=== PATIENT | male | born 1955 | race Caucasian/White ===

== ENCOUNTER → 2016-11-02 | Outpatient (CLI) | payer MEDICARE ==
[~2016-11-02] MED LIST: AUGM875T27 PO; ISOVUE-370 76% 100ML VIAL (Q9967) As Ordered ONE; PRED20TA PO; PREV30CA11 PO; ROCE1INJ4 IM; TYLE325T5 PO
[2016-11-02 14:18] LABS: ALBUMIN 4.1 GM/DL (3.2-5.2); ALBUMIN/GLOBULIN RATIO 1.46 (1.00-1.93); BILIRUBIN,DIRECT 0.1 MG/DL (0.0-0.2); BILIRUBIN,TOTAL 0.4 MG/DL (0.2-1.0); TOTAL PROTEIN 6.9 GM/DL (6.4-8.2)
--- NOTE | 2016-11-02 14:44 | REP ---
Clinical: Vocal cord paralysis with history of esophageal cancer. Technique: Axial contrast enhanced images from the thoracic inlet to the upper abdomen using 100 ml Isovue 370 intravenous contrast material with coronal and sagittal re-formations. Comparison: None. Findings: The the patient is status post partial esophagectomy with gastric pull-through procedure and gastroesophageal anastomosis in the upper mediastinum. The residual esophagus and elevated stomach as well as the area of anastomosis appear relatively normal. Few paraesophageal and mediastinal lymph nodes measure up to approximately 12-14 mm and are essentially nonspecific in appearance. No mass lesion. The heart/pericardium, thoracic aorta and pulmonary vasculature appear normal. The bilateral lung pelaez are well aerated with minimal presumed to scarring and interstitial changes at the lung bases as well as mild perihilar lower lobe bronchiectasis. A calcified nodule in the right upper lobe measures 9 mm. No consolidation, soft tissue nodule or mass lesion appreciated. No pleural effusion/reaction. No pneumothorax. Osseous structures are intact. Limited upper abdomen demonstrates normal bilateral adrenal glands and left upper pole renal cyst measuring 2.7 cm. Impression: 1. Evidence for prior partial esophagectomy with gastric pull-through procedure for esophageal cancer. No obvious recurrent mass lesion or significant adenopathy is appreciated. With the exception of normal appearing postsurgical changes, the mediastinum appears normal. 2. Lungs demonstrate calcified granuloma in the right upper lobe as well as minimal chronic basilar changes and mild bronchiectasis. No acute pleuroparenchymal process identified. 3. 2.7 cm left renal cyst. Signed by Thom Montejo MD 11/02/2016 02:35 P
--- NOTE | 2016-11-02 15:07 | REP ---
CT NECK WITH CONTRAST: HISTORY: Vocal cord paralysis. Contrast: Isovue 370, 75 mL There is medial deviation of the left true vocal cord. There is widening of the left laryngeal ventricle. The right true vocal cord is normal in appearance. The naso-, sukhdev- and hypopharynx and subglottic trachea are normal in appearance. The salivary and thyroid glands are normal. Small lymph nodes, less than 1 cm in size are present in the internal jugular chains, posterior triangles, and submandibular areas. Degenerative change is present in the cervical spine. The lung apices are clear. There are postoperative changes in the left orbit, ethmoid and frontal sinuses. Mucosal thickening is present in the left ethmoid and sphenoid sinuses. Decreased density is present in the frontal lobes consistent with encephalomalacia. IMPRESSION: There is medial deviation of the left true vocal cord with associated dilatation of the left laryngeal ventricle consistent with vocal cord paralysis. Signed by Suresh Mcneal MD 11/02/2016 03:13 P
== END ==
LOC: M LAB 13:32 → M RAD 13:32
PROVIDERS: ATTEND Otolaryngology
DX: J38.01 Paralysis of vocal cords and larynx, unilateral (principal); E78.5 Hyperlipidemia, unspecified; J98.4 Other disorders of lung; N28.1 Cyst of kidney, acquired; Z98.890 Other specified postprocedural states
CPT/HCPCS: 36415; 70491; 71260; 80061; 80076; Q9967

== ENCOUNTER → 2016-12-08 | Outpatient (CLI) | payer MEDICARE ==
[~2016-12-08] MED LIST changes: +AMIT25TA PO; -ISOVUE-370 76% 100ML VIAL (Q9967) As Ordered ONE; +PRAV40TA2 PO
[2016-12-08 11:20] LABS: BASO % 0.5 % (0.0-1.0); EOS # 0.2 K/mm3 (0.0-0.50); EOS % 3.8 % (0.0-3.0); LARGE UNSTAINED CELL # 0.1 K/mm3 (0.0-0.4); LARGE UNSTAINED CELL % 1.6 % (0.0-4.0); LYMPH # 1.5 K/mm3 (1.5-4.5); MEAN CORPUSCULAR HEMOGLOBIN 32.5 pg (27.0-33.0); MEAN CORPUSCULAR HGB CONC 33.9 g/dl (32.0-36.5); MEAN CORPUSCULAR VOLUME 95.9 fl (80.0-96.0); MONO # 0.3 K/mm3 (0.0-0.8); MONO % 4.3 % (0.0-5.0); NEUTROPHILS # 3.9 K/mm3 (1.8-7.7); NEUTROPHILS % 64.9 % (36.0-66.0); PLATELET COUNT, AUTOMATED 223 k/mm3 (150-450); RED CELL DISTRIBUTION WIDTH 13.8 % (11.5-14.5)
[2016-12-08 11:51] LABS: ALBUMIN 3.8 GM/DL (3.2-5.2); ALBUMIN/GLOBULIN RATIO 1.36 (1.00-1.93); ALKALINE PHOSPHATASE 76 U/L (45-117); ALT/SGPT 27 U/L (12-78); ANION GAP 6 MEQ/L (8-16); AST/SGOT 14 U/L (15-37); BILIRUBIN,TOTAL 0.4 MG/DL (0.2-1.0); BLOOD UREA NITROGEN 21 MG/DL (7-18); CALCIUM LEVEL 8.8 MG/DL (8.8-10.2); CARBON DIOXIDE LEVEL 30 MEQ/L (21-32); CHLORIDE LEVEL 109 MEQ/L (98-107); CREATININE FOR GFR 0.97 MG/DL (0.70-1.30); GLOMERULAR FILTRATION RATE > 60.0 (>49); GLUCOSE, FASTING 106 MG/DL (80-110); POTASSIUM SERUM 4.4 MEQ/L (3.5-5.1); SODIUM LEVEL 145 MEQ/L (136-145); TOTAL PROTEIN 6.6 GM/DL (6.4-8.2)
[2016-12-08 11:53] LABS: FOLATE 16.9 NG/ML (>5.4); VITAMIN B12 LEVEL 177 PG/ML (247-911)
== END ==
LOC: M LAB 10:45
PROVIDERS: ATTEND Psychiatry & Neurology Neurology
DX: R20.0 Anesthesia of skin (principal); E55.9 Vitamin D deficiency, unspecified; E61.0 Copper deficiency; E53.8 Deficiency of other specified B group vitamins; Z79.899 Other long term (current) drug therapy

== ENCOUNTER → 2016-12-15 | Outpatient (CLI) | payer MEDICARE ==
[~2016-12-15] MED LIST changes: +ISOVUE-370 76% 100ML VIAL (Q9967) As Ordered ONE
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
== END ==
LOC: M RAD 14:00
PROVIDERS: ATTEND Psychiatry & Neurology Neurology
DX: R20.0 Anesthesia of skin (principal); G44.221 Chronic tension-type headache, intractable; G43.009 Migraine without aura, not intractable, without status migrainosus; G31.9 Degenerative disease of nervous system, unspecified; Z87.828 Personal history of other (healed) physical injury and trauma
CPT/HCPCS: 70470; Q9967

== ENCOUNTER → 2016-12-22 | Outpatient (CLI) | payer MEDICARE ==
[~2016-12-22] VITALS: Ht 182.9 cm; Wt 123.4 kg
[~2016-12-22] MED LIST changes: -ISOVUE-370 76% 100ML VIAL (Q9967) As Ordered ONE; +LIDOCAINE 2% INJ 100 MG/5 ML SDV (FOR ANES.) As Ordered ONE; +NS 1,000 ML IV ONE; +PROPOFOL 500 MG/50 ML VIAL As Ordered ONE
--- NOTE | 2016-12-22 10:26 | ROOR ---
Patient Name: Dharmesh Tovar Procedure Date: 12/22/2016 9:56 AM Date of : 1955 Age: 61 Room: [facility] Gender: Male Note Status: Finalized Procedure: Upper GI endoscopy Indications: Surveillance for malignancy due to personal history of esophageal cancer, Esophageal Ca 2011. S/p gastric pull up. Providers: Jason KAY MD Referring MD: NELSON PURI MD Requesting Provider: Medicines: Monitored Anesthesia Care Complications: No immediate complications. Procedure: Pre-Anesthesia Assessment: - The heart rate, respiratory rate, oxygen saturations, blood pressure, adequacy of pulmonary ventilation, and response to care were monitored throughout the procedure. The Endoscope was introduced through the mouth, and advanced to the second part of duodenum. The upper GI endoscopy was accomplished without difficulty. The patient tolerated the procedure well. Findings: A few mucosal nodules were found at the esophageal anastomosis, 17 cm from the incisors. Biopsies were taken with a cold forceps for histology. An esophago-gastric anastomosis was found in the mid/upper third of the esophagus. This was characterized by congestion, erythema, inflammation and mild stenosis. This was biopsied with a cold forceps for histology. A medium amount of food (residue) was found in the entire examined stomach. Removal of food was accomplished. The entire examined stomach was normal. The examined duodenum was normal. Impression: - An esophago-gastric anastomosis was found, characterized by nodularity, congestion, erythema, inflammation and mild stenosis. Biopsied. - A medium amount of food (residue) in the stomach. Removal was successful. (Gastric retention/gastroparesis likely related to surgical denervation of stomach.) - Normal stomach. - Normal examined duodenum. Recommendation: - Use Prilosec (omeprazole) 40 mg twice a day indefinitely. - Telephone endoscopist for pathology results in 2 weeks. - Repeat EGD in 1 year (or sooner dep on todays biopsies) - Gastroparesis diet: - Eat smaller, more frequent meals throughout the day. - Low fat diet. - Liquid/soft foods are tolerated better than solid foods. - Low fiber/well cooked vegetables are tolerated better than high fiber/fibrous foods/raw vegetables. - Avoid medications that inhibit gastric/intestinal motility such as narcotic medications. Jason Kay MD Jason KAY MD 12/22/2016 10:25:35 AM This report has been signed electronically. Number of Addenda: 0 Note Initiated On: 12/22/2016 9:56 AM Estimated Blood Loss: Estimated blood loss: none.
[2016-12-22 10:50] VITALS: BP 131/77
== END | disposition home or self-care (01) ==
LOC: M OPP 08:43
PROVIDERS: ATTEND Internal Medicine Gastroenterology
DX: Z08 Encounter for follow-up examination after completed treatment for malignant neoplasm (principal); Z85.01 Personal history of malignant neoplasm of esophagus; Z98.890 Other specified postprocedural states; K22.8 Other specified diseases of esophagus; K31.89 Other diseases of stomach and duodenum; T18.2XXA Foreign body in stomach, initial encounter; Y93.89 Activity, other specified; Y92.89 Other specified places as the place of occurrence of the external cause; I48.91 Unspecified atrial fibrillation; I20.9 Angina pectoris, unspecified; I10 Essential (primary) hypertension; E78.00 Pure hypercholesterolemia, unspecified; M19.90 Unspecified osteoarthritis, unspecified site; F33.9 Major depressive disorder, recurrent, unspecified; F41.9 Anxiety disorder, unspecified; G47.9 Sleep disorder, unspecified; H93.19 Tinnitus, unspecified ear; Z87.828 Personal history of other (healed) physical injury and trauma; Z79.899 Other long term (current) drug therapy

== ENCOUNTER 2017-02-16 16:23 | Emergency (ER) | payer MEDICARE ==
[~2017-02-16] VITALS: Ht 182.9 cm; Wt 125.0 kg
[~2017-02-16 16:23] MED LIST changes: -AUGM875T27 PO; +AUGM875T28 PO; -LIDOCAINE 2% INJ 100 MG/5 ML SDV (FOR ANES.) As Ordered ONE; -NS 1,000 ML IV ONE; +PREV1CAP PO; -PREV30CA11 PO; -PROPOFOL 500 MG/50 ML VIAL As Ordered ONE
[2017-02-16] MEDS ORDERED: PREV1CAP PO (16:34)
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
[2017-02-16] MEDS ORDERED: TETRACAINE 0.5% OPHTH SOLN 4ML OD ONE (18:45)
[2017-02-16 19:10] VITALS: BP 124/75
== END 2017-02-16 19:17 | disposition home or self-care (01) ==
LOC: M ED 16:23
DX: H53.8 Other visual disturbances (principal)

== ENCOUNTER 2017-03-09 23:53 | Emergency (ER) | payer MEDICARE ==
[~2017-03-09] VITALS: Ht 182.9 cm; Wt 124.5 kg
[2017-03-09 23:54] VITALS: BP 120/74
[2017-03-10] MEDS ORDERED: ADACEL/BOOSTRIX VACCINE (DIPHTH/PERTUSS/ACELL/TETANUS)0.5ML SYR (90715) IM ONE (00:15)
[2017-03-10] MEDS ORDERED: CEPHALEXIN 500 MG CAP PO ONE (00:15)
[2017-03-10] MEDS ORDERED: KEFL500C17 PO (00:55)
== END 2017-03-10 01:06 | disposition home or self-care (01) ==
LOC: M ED 23:53
DX: S61.315A Laceration without foreign body of left ring finger with damage to nail, initial encounter (principal); F10.129 Alcohol abuse with intoxication, unspecified; Z72.0 Tobacco use; W45.8XXA Other foreign body or object entering through skin, initial encounter; Y92.099 Unspecified place in other non-institutional residence as the place of occurrence of the external cause; Y93.89 Activity, other specified; Y99.9 Unspecified external cause status

== ENCOUNTER 2017-08-06 02:06 | Emergency (ER) | payer MEDICARE ==
[2017-08-06 03:43] LABS: BASO % 0.3 % (0.0-1.0); EOS # 0.4 10^3/uL (0.0-0.50); EOS % 2.8 % (0.0-3.0); HEMOGLOBIN 16.2 g/dl (14.0-18.0); IMMATURE GRANULOCYTE # 0.1 10^3/uL (0-0); IMMATURE GRANULOCYTE % 0.4 % (0-0); LYMPH # 1.5 10^3/uL (1.5-4.5); LYMPH % 11.4 % (24.0-44.0); MEAN CORPUSCULAR HEMOGLOBIN 32.1 pg (27.0-33.0); MEAN CORPUSCULAR HGB CONC 33.8 g/dl (32.0-36.5); MONO # 0.7 10^3/uL (0.0-0.8); MONO % 5.8 % (0.0-5.0); NEUTROPHILS # 10.2 10^3/uL (1.8-7.7); NEUTROPHILS % 79.3 % (36.0-66.0); PLATELET COUNT, AUTOMATED 233 10^3/uL (150-450); RED BLOOD COUNT 5.05 10^6/uL (4.30-6.10); RED CELL DISTRIBUTION WIDTH 13.8 % (11.5-14.5); WHITE BLOOD COUNT 12.8 10^3/uL (4.0-10.0)
[2017-08-06 03:54] LABS: KETONE, URINE AUTO RFX TRACE mg/dL (NEGATIVE); LEUKOCYTE ESTERASE UR AUTO RFX NEGATIVE (NEGATIVE); MUCUS, URINE RFX SMALL (NEGATIVE); NITRITE, URINE AUTO RFX NEGATIVE (NEGATIVE); RBC, URINE AUTO RFX 1 /HPF (0-3); SPECIFIC GRAVITY UR AUTO RFX 1.024 (1.002-1.035); SQUAM EPITHELIAL CELL UR AURFX 0 /HPF (0-6); WBC, URINE AUTO RFX 0 /HPF (0-3)
[2017-08-06 04:15] LABS: PARTIAL THROMBOPLASTIN TIME 30.5 SECONDS (26.8-37.9); PROTHROMBIN TIME 13.2 SECONDS (12.4-14.5)
[2017-08-06 05:18] LABS: ALBUMIN 3.8 GM/DL (3.2-5.2); ALBUMIN/GLOBULIN RATIO 1.23 (1.00-1.93); ALKALINE PHOSPHATASE 73 U/L (45-117); ALT/SGPT 26 U/L (12-78); ANION GAP 10 MEQ/L (8-16); AST/SGOT 15 U/L (7-37); BILIRUBIN,DIRECT 0.1 MG/DL (0.0-0.2); BILIRUBIN,TOTAL 0.5 MG/DL (0.2-1.0); BLOOD UREA NITROGEN 16 MG/DL (7-18); CALCIUM LEVEL 8.4 MG/DL (8.8-10.2); CARBON DIOXIDE LEVEL 24 MEQ/L (21-32); CHLORIDE LEVEL 111 MEQ/L (98-107); CK-MB VALUE MASS 3.1 NG/ML (0.0-3.6); CPK CREATINE PHOSPHOKINASE 83 U/L (39-308); CREATININE FOR GFR 1.07 MG/DL (0.70-1.30); GLOMERULAR FILTRATION RATE > 60.0 (>49); GLUCOSE, FASTING 109 MG/DL (80-110); LIPASE 85 U/L (73-393); MB/CK RELATIVE INDEX 3.73 (< OR =4); POTASSIUM SERUM 4.1 MEQ/L (3.5-5.1); SODIUM LEVEL 145 MEQ/L (136-145); TOTAL PROTEIN 6.9 GM/DL (6.4-8.2); TROPONIN I < 0.02 NG/ML (< 0.10)
[2017-08-06] MEDS ORDERED: ISOVUE-370 76% 100ML VIAL (Q9967) As Ordered (05:50)
== END 2017-08-06 07:40 | disposition left against medical advice (07) ==
LOC: M ED 02:06
DX: K56.690 Other partial intestinal obstruction (principal); Z79.899 Other long term (current) drug therapy; F17.210 Nicotine dependence, cigarettes, uncomplicated
CPT/HCPCS: Q9967

== ENCOUNTER 2017-08-08 18:46 | Emergency (ER) | payer MEDICARE ==
[2017-08-08] MEDS: NS 1,000 ML IV (22:00)
[2017-08-08 22:18] LABS: BASO % 0.5 % (0.0-1.0); EOS # 0.3 10^3/uL (0.0-0.50); EOS % 3.8 % (0.0-3.0); HEMATOCRIT 48.1 % (42.0-52.0); HEMOGLOBIN 16.6 g/dl (14.0-18.0); IMMATURE GRANULOCYTE % 0.4 % (0-0); LYMPH # 1.9 10^3/uL (1.5-4.5); LYMPH % 22.8 % (24.0-44.0); MEAN CORPUSCULAR HEMOGLOBIN 32.4 pg (27.0-33.0); MEAN CORPUSCULAR HGB CONC 34.5 g/dl (32.0-36.5); MEAN CORPUSCULAR VOLUME 93.9 fl (80.0-96.0); MONO # 0.5 10^3/uL (0.0-0.8); MONO % 6.3 % (0.0-5.0); NEUTROPHILS # 5.6 10^3/uL (1.8-7.7); NEUTROPHILS % 66.2 % (36.0-66.0); PLATELET COUNT, AUTOMATED 213 10^3/uL (150-450); RED BLOOD COUNT 5.12 10^6/uL (4.30-6.10); RED CELL DISTRIBUTION WIDTH 13.4 % (11.5-14.5); WHITE BLOOD COUNT 8.5 10^3/uL (4.0-10.0)
[2017-08-08 22:30] LABS: ALBUMIN 4.3 GM/DL (3.2-5.2); ALBUMIN/GLOBULIN RATIO 1.39 (1.00-1.93); ALKALINE PHOSPHATASE 79 U/L (45-117); ALT/SGPT 27 U/L (12-78); ANION GAP 5 MEQ/L (8-16); AST/SGOT 18 U/L (7-37); BILIRUBIN,TOTAL 0.5 MG/DL (0.2-1.0); BLOOD UREA NITROGEN 21 MG/DL (7-18); CALCIUM LEVEL 9.1 MG/DL (8.8-10.2); CARBON DIOXIDE LEVEL 29 MEQ/L (21-32); CHLORIDE LEVEL 108 MEQ/L (98-107); CREATININE FOR GFR 1.02 MG/DL (0.70-1.30); GLOMERULAR FILTRATION RATE > 60.0 (>49); GLUCOSE, FASTING 97 MG/DL (80-110); POTASSIUM SERUM 4.3 MEQ/L (3.5-5.1); SODIUM LEVEL 142 MEQ/L (136-145); TOTAL PROTEIN 7.4 GM/DL (6.4-8.2)
[2017-08-08] MEDS ORDERED: ISOVUE-370 76% 100ML VIAL (Q9967) As Ordered (22:32)
== END 2017-08-09 00:06 | disposition home or self-care (01) ==
LOC: M ED 08-09 00:06
DX: K56.600 Partial intestinal obstruction, unspecified as to cause (principal); F41.9 Anxiety disorder, unspecified; F33.9 Major depressive disorder, recurrent, unspecified; F17.210 Nicotine dependence, cigarettes, uncomplicated
CPT/HCPCS: Q9967

== ENCOUNTER 2018-12-05 19:20 | Emergency (ER) | payer MEDICARE ==
[~2018-12-05] VITALS: Ht 185.4 cm; Wt 111.3 kg
[~2018-12-05 19:20] MED LIST changes: +KEFL500C17 PO; -ROCE1INJ4 IM; +ROCE1INJ6 IM
[2018-12-05 21:08] VITALS: BP 130/80
== END 2018-12-05 21:12 | disposition home or self-care (01) ==
LOC: M ED 19:20
DX: K40.90 Unilateral inguinal hernia, without obstruction or gangrene, not specified as recurrent (principal); K21.9 Gastro-esophageal reflux disease without esophagitis; K44.9 Diaphragmatic hernia without obstruction or gangrene; K27.9 Peptic ulcer, site unspecified, unspecified as acute or chronic, without hemorrhage or perforation; N17.9 Acute kidney failure, unspecified; Z85.01 Personal history of malignant neoplasm of esophagus; Z72.0 Tobacco use

== ENCOUNTER → 2019-01-08 | Outpatient (CLI) | payer MEDICARE ==
--- NOTE | 2019-01-08 10:51 | REP ---
RIGHT INGUINAL ULTRASOUND: Real-time sonographic evaluation of the right inguinal region was performed to evaluate for possible hernia. There is a right inguinal hernia present. At rest the defect diameter is 19 mm, with Valsalva, 23 mm. There is peritoneal fat and bowel protruding into the hernia. The hernia is reducible. Electronically Signed by Josiah Hilton MD 01/08/2019 12:36 P
== END ==
LOC: M RAD 09:31
PROVIDERS: ATTEND Family Medicine
DX: K40.90 Unilateral inguinal hernia, without obstruction or gangrene, not specified as recurrent (principal)

== ENCOUNTER 2020-04-29 14:56 | Inpatient (IN) | payer MEDICARE ==
[~2020-04-29] VITALS: Ht 188 cm; Wt 100.0 kg
[2020-04-29 15:41] LABS: VENOUS BASE EXCESS -2.9 (-2.0-2.0); VENOUS HCO3 24.2 MEQ/L (23.0-27.0); VENOUS PARTIAL PRESSURE CO2 50.4 mmHg (38.0-50.0); VENOUS PARTIAL PRESSURE O2 30.8 mmHg (30.0-50.0); VENOUS STANDARD HCO3 20.8 MEQ/L; VENOUS TOTAL CO2 25.8 MEQ/L (24.0-28.0)
[2020-04-29 15:46] LABS: BASO % 0.5 % (0.0-1.0); EOS # 0.1 10^3/uL (0.0-0.5); EOS % 1.7 % (0.0-3.0); HEMATOCRIT 50.9 % (42.0-52.0); HEMOGLOBIN 16.4 g/dl (13.5-17.5); LYMPH # 1.6 10^3/uL (1.5-5.0); LYMPH % 21.2 % (24.0-44.0); MEAN CORPUSCULAR HGB CONC 32.2 g/dl (32.0-36.5); MEAN CORPUSCULAR VOLUME 99.2 fl (80.0-96.0); MONO # 0.4 10^3/uL (0.0-0.8); MONO % 5.6 % (0.0-5.0); NEUTROPHILS # 5.3 10^3/uL (1.5-8.5); NEUTROPHILS % 70.9 % (36.0-66.0); PLATELET COUNT, AUTOMATED 154 10^3/uL (150-450); RED BLOOD COUNT 5.13 10^6/uL (4.30-6.10); WHITE BLOOD COUNT 7.5 10^3/uL (4.0-10.0)
[2020-04-29 16:18] LABS: ALBUMIN 4.2 GM/DL (3.2-5.2); ALT/SGPT 29 U/L (12-78); BILIRUBIN,DIRECT 1.4 MG/DL (0.0-0.2); BILIRUBIN,TOTAL 3.1 MG/DL (0.2-1.0); BLOOD UREA NITROGEN 19 MG/DL (7-18); CALCIUM LEVEL 9.7 MG/DL (8.8-10.2); CARBON DIOXIDE LEVEL 25 MEQ/L (21-32); CHLORIDE LEVEL 110 MEQ/L (98-107); CK-MB VALUE MASS 2.1 NG/ML (<3.6); CPK CREATINE PHOSPHOKINASE 74 U/L (39-308); CREATININE FOR GFR 1.42 MG/DL (0.70-1.30); GLOMERULAR FILTRATION RATE 53.3 (>49); GLUCOSE, FASTING 123 MG/DL (70-100); MB/CK RELATIVE INDEX 2.84 (< OR =4); NT-PRO BNP 4539 PG/ML (<125); POTASSIUM SERUM 4.1 MEQ/L (3.5-5.1); SODIUM LEVEL 143 MEQ/L (136-145); TOTAL PROTEIN 7.2 GM/DL (6.4-8.2); TROPONIN I < 0.02 NG/ML (< 0.10)
--- NOTE | 2020-04-29 16:42 | REPVR ---
PROCEDURE INFORMATION: Exam: XR Chest, 1 View Exam date and time: 04/29/2020 3:49 PM Age: 65 years old Clinical indication: Apnea and cough; Additional info: Dyspnea/cough TECHNIQUE: Imaging protocol: XR of the chest Views: 1 view. COMPARISON: CT Chest with contrast 11/02/2016 2:07 PM FINDINGS: Lungs: Unremarkable. No consolidation. Pleural space: Moderate size right and small left pleural effusions with underlying atelectasis and infiltrates at bilateral lung bases. Heart/Mediastinum: Unremarkable. No cardiomegaly. Bones/joints: Degenerative changes of the spine. IMPRESSION: Moderate size right and small left pleural effusion with underlying atelectasis/infiltrates. Electronically signed by: Simón Quach On 04/29/2020 16:42:14 PM
--- NOTE | 2020-04-29 17:40 | REPVR ---
PROCEDURE INFORMATION: Exam: CT Chest Without Contrast Exam date and time: 04/29/2020 5:03 PM Age: 65 years old Clinical indication: Shortness of breath; Additional info: Effusion TECHNIQUE: Imaging protocol: Computed tomography of the chest without contrast. 3D rendering (Not supervised by radiologist): MIP and/or 3D reconstructed images were created by the technologist. Radiation optimization: All CT scans at this facility use at least one of these dose optimization techniques: automated exposure control; mA and/or kV adjustment per patient size (includes targeted exams where dose is matched to clinical indication); or iterative reconstruction. COMPARISON: CT Chest with contrast 11/02/2016 2:07 PM FINDINGS: Limitations: Evaluation is somewhat limited by lack of IV contrast. Lungs: A calcified granuloma is again present in the right upper lobe. There is considerable new compression of the right more than left lower lobes, with mild atelectasis in the lingula and right middle lobe inferiorly. The central airways appear patent. Pleural space: There are new, large right and moderate left pleural effusions. No pneumothorax. Heart: Unremarkable. No cardiomegaly. No pericardial effusion. Mediastinal space: There are again operative changes of partial esophagectomy and gastric pull-through. Aorta: The thoracic aorta is nonaneurysmal. Atherosclerotic vascular calcifications are again present. Lymph nodes: No gross pathologic lymphadenopathy. Kidneys and ureters: The partially included left kidney again contains a cyst measuring up to 3.7 cm. Bones/joints: Degenerative changes again involve the spine. The partially visualized left humerus demonstrates questionable irregular lucency of its cortex, although this may relate to motion. Soft tissues: Unremarkable. IMPRESSION: 1. Large right and moderate left pleural effusions. 2. Operative changes of partial esophagectomy and gastric pull-through, as on 11/02/16. 3. Question irregular lucency of the cortex of the partially visualized left humerus, although this could relate to motion. Recommend dedicated radiographs to exclude pathology such as metastasis. Electronically signed by: Devan Simmons On 04/29/2020 17:40:45 PM
[2020-04-29] MEDS ORDERED: DIGOXIN INJ 0.5 MG/2 ML AMP (J1160) IV STA (18:06)
[2020-04-29] MEDS ORDERED: FUROSEMIDE 40MG/4ML VIAL (J1940) IV ONE (18:15)
[2020-04-29] MEDS ORDERED: DIGOXIN INJ 0.5 MG/2 ML AMP (J1160) IV ONE (19:15)
[2020-04-29] MEDS ORDERED: ACET1TAB55 PO (19:22)
--- NOTE | 2020-04-29 20:09 | IPNPDOC ---
Text Note Date of Service The patient was seen on 04/29/20. VS,Kevinbone, I+O VS, Fishbone, I+O Laboratory Tests 04/29/20 15:30 Vital Signs Date Time Temp Pulse Resp B/P (MAP) Pulse Ox O2 Delivery O2 Flow Rate FiO2 04/29/20 19:37 147 04/29/20 18:00 108/76 (87) 96 Room Air 04/29/20 17:45 19 04/29/20 14:57 97.2 USMAN WILSON MD Apr 29, 2020 20:09
[2020-04-29] MEDS ORDERED: MOM 30ML SUSPENSION UDC PO PRN (20:15)
[2020-04-29] MEDS ORDERED: ACETAMINOPHEN TAB 650MG DOSE (2X325MG) PO PRN (20:15)
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
[2020-04-29 21:16] VITALS: BP 140/97
[2020-04-29 21:44] LABS: APPEARANCE, URINE CLEAR (CLEAR); BACTERIA, URINE AUTO NEGATIVE (NEGATIVE); BILIRUBIN, URINE AUTO NEGATIVE (NEGATIVE); BLOOD, URINE BLOOD NEGATIVE (NEGATIVE); COLOR, URINE STRAW (YELLOW); GLUCOSE, URINE (UA) AUTO NEGATIVE (NEGATIVE); KETONE, URINE AUTO NEGATIVE (NEGATIVE); LEUKOCYTE ESTERASE, URINE AUTO NEGATIVE (NEGATIVE); NITRITE, URINE AUTO NEGATIVE (NEGATIVE); PROTEIN, URINE AUTO NEGATIVE (NEGATIVE); RBC, URINE AUTO 2 /HPF (0-3); SPECIFIC GRAVITY URINE AUTO 1.003 (1.002-1.035); SQUAMOUS EPITHELIAL CELL UR AU 0 /HPF (0-6); UROBILINOGEN, URINE AUTO 0.2 mg/dL (0.0-2.0); WBC, URINE AUTO 0 /HPF (0-3)
[2020-04-29 21:52] LABS: INR 1.21; PROTHROMBIN TIME 15.6 SECONDS (12.5-14.3)
[2020-04-29 21:53] LABS: PARTIAL THROMBOPLASTIN TIME 31.7 SECONDS (24.2-38.5)
[2020-04-29 22:00] VITALS: BP 128/91
[2020-04-29 22:02] LABS: CREATININE,RANDOM URINE < 13.0 MG/DL; SODIUM,RANDOM URINE 118 MEQ/L; UREA NITROGEN RANDOM URINE 62 MG/DL
[2020-04-29 22:14] LABS: TROPONIN I < 0.02 NG/ML (< 0.10)
[2020-04-29] MEDS ORDERED: LORazepam 2 MG TAB PO PRN (22:30)
[2020-04-29] MEDS: THIAMINE 100 MG TAB PO SCH (22:49)
[2020-04-29] MEDS ORDERED: AMIODARONE HCL 150 MG in IV 1 EA IV ONE (23:00)
[2020-04-29] MEDS ORDERED: AMIODARONE HCL 360 MG in IV 1 EA IV SCH (23:30)
[2020-04-30] VITALS (13 sets, daily range): BP systolic 89–148; BP diastolic 58–86
[2020-04-30] MEDS: FUROSEMIDE 40MG/4ML VIAL (J1940) IV SCH ×5 (03:57→16:00)
[2020-04-30 04:52] LABS: VENOUS BASE EXCESS 0.3 (-2.0-2.0); VENOUS HCO3 25.2 MEQ/L (23.0-27.0); VENOUS O2 SATURATION 82.4 % (60.0-80.0); VENOUS PARTIAL PRESSURE CO2 41.5 mmHg (38.0-50.0); VENOUS PARTIAL PRESSURE O2 47.9 mmHg (30.0-50.0); VENOUS PH 7.401 UNITS (7.330-7.430); VENOUS STANDARD HCO3 24.4 MEQ/L; VENOUS TOTAL CO2 26.5 MEQ/L (24.0-28.0)
[2020-04-30 05:00] LABS: HEMATOCRIT 44.8 % (42.0-52.0); HEMOGLOBIN 14.7 g/dl (13.5-17.5); MEAN CORPUSCULAR HEMOGLOBIN 31.9 pg (27.0-33.0); MEAN CORPUSCULAR HGB CONC 32.8 g/dl (32.0-36.5); MEAN CORPUSCULAR VOLUME 97.2 fl (80.0-96.0); PLATELET COUNT, AUTOMATED 124 10^3/uL (150-450); RED BLOOD COUNT 4.61 10^6/uL (4.30-6.10)
[2020-04-30 05:21] LABS: ALBUMIN 3.6 GM/DL (3.2-5.2); BILIRUBIN,TOTAL 2.5 MG/DL (0.2-1.0); CALCIUM LEVEL 9.3 MG/DL (8.8-10.2); CREATININE FOR GFR 1.35 MG/DL (0.70-1.30); GLOMERULAR FILTRATION RATE 56.5 (>49); MAGNESIUM LEVEL 1.9 MG/DL (1.8-2.4); POTASSIUM SERUM 3.9 MEQ/L (3.5-5.1)
[2020-04-30 05:28] LABS: HEMOGLOBIN A1c 5.9 %
[2020-04-30] MEDS ORDERED: atenoloL 25 MG TAB As Ordered ONE (08:06)
[2020-04-30] MEDS ORDERED: DIGOXIN INJ 0.5 MG/2 ML AMP (J1160) As Ordered ONE (08:06)
[2020-04-30] MEDS ORDERED: atenoloL 25 MG TAB PO ONE (08:15)
[2020-04-30] MEDS: THIAMINE 100 MG TAB PO SCH ×2 (08:15→19:27)
[2020-04-30] MEDS: FOLIC ACID 1 MG TAB PO SCH (08:15)
[2020-04-30] MEDS ORDERED: DIGOXIN INJ 0.5 MG/2 ML AMP (J1160) IV ONE (08:15)
[2020-04-30] MEDS: MULTIVITAMINS/MINERALS THERAP 1 TAB PO SCH (08:15)
[2020-04-30] MEDS: ENOXAPARIN 40MG/0.4ML SYRINGE (J1650 PER 10MG) SC SCH (08:17)
[2020-04-30 10:24] LABS: HEPATITIS A ANTIBODY IGM NEGATIVE (NEGATIVE); HEPATITIS B CORE ANTIBODY IGM NEGATIVE (NEGATIVE); HEPATITIS B SURFACE ANTIGEN NEGATIVE (NEGATIVE); HEPATITIS C VIRUS ABY INDEX 0.1 INDEX (<0.8)
--- NOTE | 2020-04-30 10:43 | REPVR ---
PROCEDURE INFORMATION: Exam: XR Left Humerus Exam date and time: 04/30/2020 10:16 AM Age: 65 years old Clinical indication: Pain; Upper arm; Left; Additional info: Possible mets to left humerus, history of cancer TECHNIQUE: Imaging protocol: XR Left humerus Views: 2 or more views. COMPARISON: CT Chest without contrast 04/29/2020 4:59:29 PM FINDINGS: Bones/joints: Bone mineralization is normal. No osteolytic or osteosclerotic lesions are identified. No destructive bony change. Mild AC joint arthrosis. Old left rib deformities. Soft tissues: Soft tissues are unremarkable. Intravenous catheter in the region of the antecubital fossa. IMPRESSION: No plain film evidence of osseous metastatic disease. Electronically signed by: Thom Ceja On 04/30/2020 10:42:56 AM
--- NOTE | 2020-04-30 11:08 | REPVR ---
PROCEDURE INFORMATION: Exam: US Retroperitoneal; Complete; Kidneys and Bladder Exam date and time: 04/30/2020 10:38 AM Age: 65 years old Clinical indication: Condition or disease; Kidney or ureter condition; Chronic kidney disease or failure; Not specified; Additional info: Ryan TECHNIQUE: Imaging protocol: Real-time ultrasound of the retroperitoneum with image documentation. Complete exam focused on the kidneys and bladder. COMPARISON: Abdomen, limited US 11/29/2014 4:01 PM FINDINGS: Pleural space: Bilateral pleural effusions. Right kidney: Right kidney measures 10.2 cm in length. Simple 13 mm right renal cortical cyst. No hydronephrosis. Left kidney: Left kidney measures 9.0 cm in length. Simple 35 mm left renal cortical cyst. No hydronephrosis. Mild diffuse left renal cortical thinning. Bladder: Unremarkable. Prostate: Enlarged prostate gland. IMPRESSION: 1. No acute renal abnormality. 2. Bilateral pleural effusions. COMMENTS: Consistent with the [employer]'s Incidental Findings Committee white paper (J Am Alyce Radiol 2018): Any incidental renal lesion less than 1 cm or classified as too small to characterize, or any incidental cystic renal lesion characterized as simple-appearing, is likely benign. No follow-up imaging is recommended for these lesions per consensus recommendations based on imaging criteria. Electronically signed by: Pearl Cosme On 04/30/2020 11:08:01 AM
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
--- NOTE | 2020-04-30 15:42 | ECHO ---
DATE OF PROCEDURE: 04/30/2020 Age: 65 Gender: Male Height: 74 inches Weight: 227 pounds Body surface area: 2.29 m2 PATIENT LOCATION: Inpatient intensive care unit (ICU), Room 3204. REFERRING PHYSICIAN: She Peguero MD. INDICATION: Dyspnea. Atrial fibrillation. MEASUREMENTS: 2D Measurements: RV 4.5 cm LV 4.6 cm Septum 1.0 cm Posterior wall 1.0 cm Aortic Root 3.5 cm LA 4.2 cm LVEF 35-40% Doppler Measurements: AV 0.99 m/s LVOT 0.7 m/s LVOT diameter 2.2 cm MV 115 Early mitral deceleration time 172 m/s E prime medial 9.3, E prime lateral 9.3 Average E/E prime ratio 12.4/PCWP 17.2 mmHg PV 0.48 m/s Pulmonary artery acceleration time 90 m/s RVSP 45 mmHg IVC 2.2 cm COMMENTS: Underlying atrial fibrillation with somewhat controlled ventricular response. Somewhat technically challenging study in light of the patients body habitus, but diagnostically useful information was still obtained. M-mode and two-dimensional echocardiography was performed with pulsed, continuous wave, color flow, and tissue Doppler studies. Normal left ventricular size and wall thickness with septal wall motion abnormality believed to be due to right ventricular pressure overload. The left ventricular reed appeared to be hypokinetic. Moderately severe impairment of global resting systolic function. Mildly dilated left atrium with current estimated mean left atrial pressure upper limits of normal to slightly increased. Mildly dilated right ventricular with normal right ventricular free wall motion, but at least moderate pulmonary hypertension. Moderately dilated right atrium and mildly dilated inferior vena cava (IVC) with reduced respiratory collapse in keeping with elevated central venous pressure. Normal aortic dimensions. Mild aortic valvular sclerosis without stenosis, but premature cusp closure in keeping with reduced forward stroke volume. Very mild aortic insufficiency. Mild degenerative changes of the mitral valvular apparatus without inflow tract obstruction, but moderate insufficiency. Normal appearing tricuspid valve with moderately severe tricuspid insufficiency. No apparent intracardiac mass or pericardial effusion. MTDD
--- NOTE | 2020-04-30 20:50 | ECGEPIP ---
[facility] - ED Test Date: 2020-04-29 Pat Name: CROW MURRAY Department: Room: - Gender: Male Instructional Manager: renetta : 1955 Requested By: ROGERIO Jung Order Number: [id number] Reading MD: Lety Hernandez Measurements Intervals [place] Rate: 153 P: WI: 0 QRS: 7 QRSD: 90 T: 0 QT: 242 QTc: 387 Interpretive Statements ATRIAL FIBRILLATION WITH RAPID VENTRICULAR RESPONSE NONSPECIFIC ST & T-WAVE ABNORMALITY ABNORMAL RHYTHM ECG NO PRIOR Electronically Signed on 04-30-2020 20:49:43 EDT by Lety Hernandez
[2020-04-30] MEDS ORDERED: atenoloL 25 MG TAB PO SCH (21:00)
[2020-05-01] VITALS (8 sets, daily range): BP systolic 92–141; BP diastolic 58–86
[2020-05-01] MEDS: FUROSEMIDE 40MG/4ML VIAL (J1940) IV SCH ×3 (00:31→16:00)
[2020-05-01] MEDS: ENOXAPARIN 40MG/0.4ML SYRINGE (J1650 PER 10MG) SC SCH (08:04)
[2020-05-01] MEDS: FOLIC ACID 1 MG TAB PO SCH (08:04)
[2020-05-01] MEDS: THIAMINE 100 MG TAB PO SCH ×2 (08:05→20:21)
[2020-05-01] MEDS: MULTIVITAMINS/MINERALS THERAP 1 TAB PO SCH (08:05)
[2020-05-01] MEDS: CARVedilol 6.25 MG TAB PO SCH ×2 (08:05→20:07)
[2020-05-01] MEDS: DIGOXIN 0.25 MG TAB PO SCH (08:05)
[2020-05-01 10:02] LABS: CALCIUM LEVEL 9.4 MG/DL (8.8-10.2); CREATININE FOR GFR 1.5 MG/DL (0.70-1.30); MAGNESIUM LEVEL 1.8 MG/DL (1.8-2.4); POTASSIUM SERUM 3.6 MEQ/L (3.5-5.1)
[2020-05-01] MEDS ORDERED: POTASSIUM CHLORIDE 10 MEQ SR TABLET PO ONE (10:15)
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
[2020-05-01] MEDS: MAGNESIUM OXIDE 400 MG TAB (MAG-OX) PO SCH (11:48)
[2020-05-02] VITALS (14 sets, daily range): BP systolic 74–115; BP diastolic 50–77
[2020-05-02] MEDS ORDERED: NS 500 ML IV ONE ×3 (08:30→16:30)
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
[2020-05-02] MEDS: FOLIC ACID 1 MG TAB PO SCH (08:48)
[2020-05-02] MEDS: MAGNESIUM OXIDE 400 MG TAB (MAG-OX) PO SCH (08:48)
[2020-05-02] MEDS: MULTIVITAMINS/MINERALS THERAP 1 TAB PO SCH (08:49)
[2020-05-02] MEDS: DIGOXIN 0.25 MG TAB PO SCH (08:49)
[2020-05-02] MEDS: THIAMINE 100 MG TAB PO SCH (08:49)
[2020-05-02] MEDS: POTASSIUM CHLORIDE 10 MEQ SR TABLET PO SCH (08:49)
[2020-05-02] MEDS: ENOXAPARIN 40MG/0.4ML SYRINGE (J1650 PER 10MG) SC SCH (08:50)
[2020-05-02] MEDS: FUROSEMIDE 40MG/4ML VIAL (J1940) IV SCH (08:52)
[2020-05-02] MEDS: CARVedilol 6.25 MG TAB PO SCH (08:52)
[2020-05-02] MEDS ORDERED: CARVedilol 3.125 MG TAB PO SCH (09:00)
[2020-05-02 09:27] LABS: BLOOD UREA NITROGEN 19 MG/DL (7-18); CALCIUM LEVEL 8.9 MG/DL (8.8-10.2); CARBON DIOXIDE LEVEL 32 MEQ/L (21-32); CHLORIDE LEVEL 104 MEQ/L (98-107); CREATININE FOR GFR 1.19 MG/DL (0.70-1.30); GLOMERULAR FILTRATION RATE > 60.0 (>49); GLUCOSE, FASTING 122 MG/DL (70-100); MAGNESIUM LEVEL 1.9 MG/DL (1.8-2.4); POTASSIUM SERUM 3.8 MEQ/L (3.5-5.1); SODIUM LEVEL 141 MEQ/L (136-145)
[2020-05-02] MEDS ORDERED: bisoproloL fumarate 5 MG TAB PO ONE (17:45)
[2020-05-02] MEDS ORDERED: DIGOXIN INJ 0.5 MG/2 ML AMP (J1160) IV ONE (17:45)
[2020-05-02] MEDS: AMIODARONE 200 MG TAB (PACERONE) PO SCH ×2 (17:59→22:56)
[2020-05-03] VITALS (11 sets, daily range): BP systolic 89–123; BP diastolic 54–71
[2020-05-03 05:20] LABS: BASO % 0.3 % (0.0-1.0); EOS # 0.1 10^3/uL (0.0-0.5); EOS % 2.3 % (0.0-3.0); HEMATOCRIT 45.4 % (42.0-52.0); HEMOGLOBIN 14.8 g/dl (13.5-17.5); LYMPH # 1.3 10^3/uL (1.5-5.0); LYMPH % 20.9 % (24.0-44.0); MEAN CORPUSCULAR HEMOGLOBIN 30.6 pg (27.0-33.0); MEAN CORPUSCULAR HGB CONC 32.6 g/dl (32.0-36.5); MONO # 0.6 10^3/uL (0.0-0.8); MONO % 9.8 % (0.0-5.0); NEUTROPHILS # 4.1 10^3/uL (1.5-8.5); NEUTROPHILS % 66.5 % (36.0-66.0); PLATELET COUNT, AUTOMATED 146 10^3/uL (150-450); RED BLOOD COUNT 4.83 10^6/uL (4.30-6.10); WHITE BLOOD COUNT 6.2 10^3/uL (4.0-10.0)
[2020-05-03 05:39] LABS: BLOOD UREA NITROGEN 17 MG/DL (7-18); CALCIUM LEVEL 8.3 MG/DL (8.8-10.2); CARBON DIOXIDE LEVEL 28 MEQ/L (21-32); CHLORIDE LEVEL 108 MEQ/L (98-107); CREATININE FOR GFR 1.03 MG/DL (0.70-1.30); GLOMERULAR FILTRATION RATE > 60.0 (>49); GLUCOSE, FASTING 91 MG/DL (70-100); MAGNESIUM LEVEL 1.8 MG/DL (1.8-2.4); POTASSIUM SERUM 3.5 MEQ/L (3.5-5.1); SODIUM LEVEL 142 MEQ/L (136-145)
[2020-05-03] MEDS: AMIODARONE 200 MG TAB (PACERONE) PO SCH ×3 (05:56→18:31)
[2020-05-03] MEDS: MAGNESIUM OXIDE 400 MG TAB (MAG-OX) PO SCH (08:19)
[2020-05-03] MEDS: POTASSIUM CHLORIDE 10 MEQ SR TABLET PO SCH (08:20)
[2020-05-03] MEDS: MULTIVITAMINS/MINERALS THERAP 1 TAB PO SCH (08:20)
[2020-05-03] MEDS: DIGOXIN 0.25 MG TAB PO SCH (08:20)
[2020-05-03] MEDS: FOLIC ACID 1 MG TAB PO SCH (08:20)
[2020-05-03] MEDS: ENOXAPARIN 40MG/0.4ML SYRINGE (J1650 PER 10MG) SC SCH (08:21)
[2020-05-03] MEDS: bisoproloL fumarate 5 MG TAB PO SCH ×2 (09:00→20:28)
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
[2020-05-03] MEDS: APIXABAN 5 MG TAB (ELIQUIS) PO SCH (20:27)
[2020-05-03] MEDS ORDERED: TAMSULOSIN 0.4 MG CAP PO SCH (21:00)
[2020-05-04] MEDS: AMIODARONE 200 MG TAB (PACERONE) PO SCH ×3 (00:36→12:48)
[2020-05-04 06:00] VITALS: BP 105/70
[2020-05-04 06:17] LABS: BASO % 0.5 % (0.0-1.0); EOS # 0.2 10^3/uL (0.0-0.5); HEMATOCRIT 46.3 % (42.0-52.0); HEMOGLOBIN 15.3 g/dl (13.5-17.5); LYMPH # 1.3 10^3/uL (1.5-5.0); LYMPH % 22.4 % (24.0-44.0); MEAN CORPUSCULAR HEMOGLOBIN 31.5 pg (27.0-33.0); MEAN CORPUSCULAR VOLUME 95.5 fl (80.0-96.0); MONO # 0.6 10^3/uL (0.0-0.8); MONO % 9.9 % (0.0-5.0); NEUTROPHILS # 3.6 10^3/uL (1.5-8.5); PLATELET COUNT, AUTOMATED 143 10^3/uL (150-450); RED BLOOD COUNT 4.85 10^6/uL (4.30-6.10); WHITE BLOOD COUNT 5.7 10^3/uL (4.0-10.0)
[2020-05-04 06:45] LABS: BLOOD UREA NITROGEN 15 MG/DL (7-18); CALCIUM LEVEL 8.6 MG/DL (8.8-10.2); CARBON DIOXIDE LEVEL 27 MEQ/L (21-32); CHLORIDE LEVEL 109 MEQ/L (98-107); CREATININE FOR GFR 1.13 MG/DL (0.70-1.30); GLOMERULAR FILTRATION RATE > 60.0 (>49); GLUCOSE, FASTING 103 MG/DL (70-100); MAGNESIUM LEVEL 2.3 MG/DL (1.8-2.4); POTASSIUM SERUM 4.1 MEQ/L (3.5-5.1); SODIUM LEVEL 143 MEQ/L (136-145)
[2020-05-04] MEDS: POTASSIUM CHLORIDE 10 MEQ SR TABLET PO SCH (08:04)
[2020-05-04] MEDS: MULTIVITAMINS/MINERALS THERAP 1 TAB PO SCH (08:05)
[2020-05-04] MEDS: FOLIC ACID 1 MG TAB PO SCH (08:05)
[2020-05-04] MEDS ORDERED: AMIO200T3 PO ×2 (08:05→10:38)
[2020-05-04] MEDS: APIXABAN 5 MG TAB (ELIQUIS) PO SCH (08:05)
[2020-05-04] MEDS ORDERED: ELIQ5TAB PO (08:05)
[2020-05-04] MEDS: MAGNESIUM OXIDE 400 MG TAB (MAG-OX) PO SCH (08:05)
[2020-05-04] MEDS: DIGOXIN 0.25 MG TAB PO SCH (08:07)
[2020-05-04 08:09] VITALS: BP 100/60
[2020-05-04] MEDS: bisoproloL fumarate 5 MG TAB PO SCH (08:09)
[2020-05-04] MEDS ORDERED: FLOM0.4C39 PO (10:38)
[2020-05-04] MEDS ORDERED: KLOR10TA76 PO (10:38)
[2020-05-04] MEDS ORDERED: LASI20TA3 PO (10:38)
[2020-05-04] MEDS ORDERED: BISO5TAB14 PO (10:38)
[2020-05-04] MEDS ORDERED: DIGO0.253 PO (10:38)
[2020-05-04] MEDS ORDERED: AMIO0.1T PO (10:38)
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
== END 2020-05-04 13:42 | disposition home or self-care (01) | DRG 308 ==
LOC: M ED 14:56 → M ICU 19:53 → ENRESERV 20:08 → M 4MAIN 05-03 17:33 → M MSPAV 05-03 18:00
PROVIDERS: ADMIT Internal Medicine; ATTEND Internal Medicine Nephrology
DX: I48.91 Unspecified atrial fibrillation (principal); I50.21 Acute systolic (congestive) heart failure; J98.11 Atelectasis; E87.2 Acidosis; N17.9 Acute kidney failure, unspecified; R33.9 Retention of urine, unspecified; R74.0 Nonspecific elevation of levels of transaminase and lactic acid dehydrogenase [LDH]; Z85.01 Personal history of malignant neoplasm of esophagus; F10.10 Alcohol abuse, uncomplicated; Z79.899 Other long term (current) drug therapy; R13.10 Dysphagia, unspecified

== ENCOUNTER 2020-07-28 16:44 | Inpatient (IN) | payer MEDICARE ==
[~2020-07-28] VITALS: Ht 188 cm; Wt 93.5 kg
[~2020-07-28 16:44] MED LIST changes: +ACET1TAB55 PO; +AMIO0.1T PO; +AMIO200T3 PO; +BISO5TAB14 PO; +DIGO0.253 PO; +ELIQ5TAB PO; +FLOM0.4C39 PO; +KLOR10TA76 PO; +LASI20TA3 PO
[2020-07-28] MEDS ORDERED: FUROSEMIDE 40MG/4ML VIAL (J1940) IV ONE (17:15)
[2020-07-28] MEDS ORDERED: ASPIRIN 81 MG CHEW TABLET PO ONE (17:15)
[2020-07-28] MEDS: ALBUTEROL 90 MCG/ACT 8GM HFA INHALER INH SCH ×3 (17:33→17:52)
[2020-07-28] MEDS ORDERED: DIGOXIN INJ 0.5 MG/2 ML AMP (J1160) IV STA (17:34)
[2020-07-28 17:47] LABS: ABG BASE EXCESS -4.7 (-2.0-2.0); ABG HCO3 16.7 MEQ/L (22.0-26.0); ABG O2 SATURATION 97.5 % (95.0-99.0); ABG PARTIAL PRESSURE CO2 24.2 mmHg (35.0-45.0); ABG PARTIAL PRESSURE O2 88.4 mmHg (75.0-100.0); ABG STANDARD HCO3 20.7 MEQ/L (22.0-26.0); ABG TOTAL CO2 17.4 MEQ/L (23.0-31.0); ABG pH (ARTERIAL) 7.456 UNITS (7.350-7.450)
[2020-07-28 18:24] LABS: BASO % 0.3 % (0.0-1.0); EOS # 0.1 10^3/uL (0.0-0.5); EOS % 0.7 % (0.0-3.0); HEMATOCRIT 49.7 % (42.0-52.0); HEMOGLOBIN 15.7 g/dl (13.5-17.5); LYMPH # 1.1 10^3/uL (1.5-5.0); LYMPH % 15.8 % (24.0-44.0); MEAN CORPUSCULAR HGB CONC 31.6 g/dl (32.0-36.5); MONO # 0.4 10^3/uL (0.0-0.8); MONO % 5.6 % (0.0-5.0); NEUTROPHILS # 5.5 10^3/uL (1.5-8.5); NEUTROPHILS % 77.3 % (36.0-66.0); PLATELET COUNT, AUTOMATED 147 10^3/uL (150-450); RED BLOOD COUNT 5.07 10^6/uL (4.30-6.10); WHITE BLOOD COUNT 7.1 10^3/uL (4.0-10.0)
[2020-07-28 18:35] LABS: INR 1.27; PROTHROMBIN TIME 16.2 SECONDS (12.5-14.3)
[2020-07-28 18:48] LABS: ALBUMIN 3.2 GM/DL (3.2-5.2); ALT/SGPT 20 U/L (12-78); BILIRUBIN,DIRECT 2.1 MG/DL (0.0-0.2); BILIRUBIN,TOTAL 3.3 MG/DL (0.2-1.0); BLOOD UREA NITROGEN 28 MG/DL (7-18); CALCIUM LEVEL 8.7 MG/DL (8.8-10.2); CARBON DIOXIDE LEVEL 24 MEQ/L (21-32); CHLORIDE LEVEL 105 MEQ/L (98-107); CK-MB VALUE MASS 1.9 NG/ML (<3.6); CPK CREATINE PHOSPHOKINASE 38 U/L (39-308); CREATININE FOR GFR 1.36 MG/DL (0.70-1.30); GLUCOSE, FASTING 118 MG/DL (70-100); NT-PRO BNP 7940 PG/ML (<125); POTASSIUM SERUM 4.2 MEQ/L (3.5-5.1); SODIUM LEVEL 138 MEQ/L (136-145); TOTAL PROTEIN 5.5 GM/DL (6.4-8.2); TROPONIN I 0.02 NG/ML (< 0.10)
[2020-07-28 19:28] LABS: RSV AMPLIFICATION NEGATIVE (NEGATIVE)
[2020-07-28] MEDS ORDERED: DIGOXIN INJ 0.5 MG/2 ML AMP (J1160) IV ONE (19:45)
--- NOTE | 2020-07-28 19:48 | REP ---
INDICATION: DYSPNEA/COUGH. COMPARISON: 04/29/2020 FINDINGS: The technique utilized in obtaining the radiograph has magnified the cardiac silhouette and accentuated the interstitial markings. There is cardiomegaly accentuated by technique. Bilateral pleural effusions are unchanged. No new abnormal lung opacities have developed. IMPRESSION: No significant change is seen on this limited portable exam. <Electronically signed by Rajeev Newman > 07/28/201943
[2020-07-28] MEDS ORDERED: ACETAMINOPHEN TAB 650MG DOSE (2X325MG) PO PRN (21:15)
[2020-07-28] MEDS ORDERED: bisoproloL fumarate 5 MG TAB PO SCH (21:15)
[2020-07-28] MEDS ORDERED: MAALOX 30 ML SUSP *UDC PO PRN (21:15)
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
[2020-07-28] MEDS ORDERED: FURO20TA2 PO (21:20)
[2020-07-28] MEDS ORDERED: DIGO0.253 PO (21:20)
[2020-07-28] MEDS ORDERED: BISO5TAB14 PO (21:20)
[2020-07-28] MEDS ORDERED: ELIQ5TAB PO (21:20)
[2020-07-28] MEDS ORDERED: AMIO200T3 PO (21:20)
[2020-07-28 21:21] LABS: ETHYL ALCOHOL (ETHANOL) < 0.003 % (0.000-0.010)
[2020-07-28] MEDS ORDERED: FLOM0.4C39 PO (21:21)
[2020-07-28] MEDS ORDERED: POTA10CA32 PO (21:21)
[2020-07-28] MEDS ORDERED: LORazepam 2 MG TAB PO PRN (21:30)
[2020-07-28 21:49] LABS: MAGNESIUM LEVEL 2.3 MG/DL (1.8-2.4); PHOSPHORUS LEVEL 3.1 MG/DL (2.5-4.9)
--- NOTE | 2020-07-28 23:01 | ECGEPIP ---
[facility] - ED Test Date: 2020-07-28 Pat Name: CROW MURRAY Department: Room: - Gender: Male [employer] Irrigator: DONNELL : 1955 Requested By: ANTONETTE SZYMANSKI Order Number: [id number] Reading MD: Gage Rodrigues Measurements Intervals [place] Rate: 157 P: ME: 0 QRS: 15 QRSD: 98 T: 0 QT: 249 QTc: 403 Interpretive Statements ATRIAL FIBRILLATION WITH RAPID VENTRICULAR RESPONSE LOW QRS VOLTAGE IN PRECORDIAL LEADS NSTTW ABNORMALITY(S) SIMILAR TO 04/29/20 Electronically Signed on 07-28-2020 23:01:16 EST by Gage Rodrigues
[2020-07-29] MEDS: THIAMINE 100 MG TAB PO SCH ×3 (00:10→21:36)
[2020-07-29] MEDS: APIXABAN 5 MG TAB (ELIQUIS) PO SCH ×3 (00:11→21:36)
[2020-07-29] MEDS: AMIODARONE 200 MG TAB (PACERONE) PO SCH ×3 (00:11→21:36)
[2020-07-29] MEDS: FUROSEMIDE 40MG/4ML VIAL (J1940) IV SCH ×6 (00:13→21:38)
[2020-07-29 07:47] LABS: HEMATOCRIT 48.9 % (42.0-52.0); MEAN CORPUSCULAR HEMOGLOBIN 31.6 pg (27.0-33.0); MEAN CORPUSCULAR HGB CONC 32.7 g/dl (32.0-36.5); MEAN CORPUSCULAR VOLUME 96.4 fl (80.0-96.0); PLATELET COUNT, AUTOMATED 159 10^3/uL (150-450); RED BLOOD COUNT 5.07 10^6/uL (4.30-6.10); WHITE BLOOD COUNT 8.2 10^3/uL (4.0-10.0)
[2020-07-29] MEDS ORDERED: AMIODARONE HCL 150 MG in IV 1 EA IV STA (08:13)
[2020-07-29] MEDS ORDERED: metOLazone 5 MG TAB PO ONE (08:15)
[2020-07-29 08:19] LABS: ALBUMIN 3.4 GM/DL (3.2-5.2); ALT/SGPT 20 U/L (12-78); BILIRUBIN,TOTAL 3.5 MG/DL (0.2-1.0); BLOOD UREA NITROGEN 26 MG/DL (7-18); CALCIUM LEVEL 8.8 MG/DL (8.8-10.2); CARBON DIOXIDE LEVEL 29 MEQ/L (21-32); CHLORIDE LEVEL 103 MEQ/L (98-107); CPK CREATINE PHOSPHOKINASE 56 U/L (39-308); CREATININE FOR GFR 1.21 MG/DL (0.70-1.30); DIGOXIN LEVEL 0.7 NG/ML (0.5-2.0); FREE THYROXINE INDEX 3.5 % (1.4-3.8); GLOMERULAR FILTRATION RATE > 60.0 (>49); GLUCOSE, FASTING 107 MG/DL (70-100); MAGNESIUM LEVEL 2.1 MG/DL (1.8-2.4); MB/CK RELATIVE INDEX 3.57 (< OR =4); NT-PRO BNP 7445 PG/ML (<125); POTASSIUM SERUM 3.1 MEQ/L (3.5-5.1); SODIUM LEVEL 140 MEQ/L (136-145); T UPTAKE 38 % (33-40); THYROXINE (T4) 9.1 UG/DL (4.5-12.0); TOTAL PROTEIN 5.9 GM/DL (6.4-8.2); TROPONIN I 0.02 NG/ML (< 0.10)
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
--- NOTE | 2020-07-29 08:43 | REP ---
INDICATION: sob COMPARISON: 07/28/2020 TECHNIQUE: PA and lateral. FINDINGS: Moderate right and small to moderate left pleural effusions with underlying passive atelectasis/consolidations again noted. Visualized portions of the mediastinum and cardiac silhouette are stable. No pneumothorax. Skeletal structures are intact. IMPRESSION: Bilateral pleural effusions (right greater than left) with underlying passive atelectasis and consolidations. <Electronically signed by Thom Montejo > 07/29/20 [id number]
[2020-07-29] MEDS ORDERED: POTASSIUM CHLORIDE 10 MEQ SR TABLET PO SCH (09:00)
[2020-07-29] MEDS: DIGOXIN 0.25 MG TAB PO SCH (09:45)
[2020-07-29] MEDS: MULTIVITAMINS/MINERALS THERAP 1 TAB PO SCH (09:45)
[2020-07-29] MEDS: FOLIC ACID 1 MG TAB PO SCH (09:46)
[2020-07-29] MEDS: TAMSULOSIN 0.4 MG CAP PO SCH (09:46)
[2020-07-29] MEDS ORDERED: DIGOXIN INJ 0.5 MG/2 ML AMP (J1160) IV STA (13:04)
[2020-07-29] MEDS: METOPROLOL 5 MG/5 ML VIAL IV SCH ×3 (13:58→14:37)
[2020-07-29] MEDS: POTASSIUM CHLORIDE 10 MEQ SR TABLET PO SCH ×2 (16:32→21:36)
[2020-07-29 18:00] VITALS: BP 119/78
[2020-07-29 18:31] VITALS: BP 119/75
[2020-07-29 20:00] VITALS: BP 119/77
[2020-07-29 22:00] VITALS: BP 119/75
[2020-07-30] VITALS (9 sets, daily range): BP systolic 109–125; BP diastolic 65–87
[2020-07-30] MEDS: FUROSEMIDE 40MG/4ML VIAL (J1940) IV SCH ×6 (01:34→20:53)
[2020-07-30 09:16] LABS: HEMATOCRIT 47.4 % (42.0-52.0); HEMOGLOBIN 15.9 g/dl (13.5-17.5); MEAN CORPUSCULAR HEMOGLOBIN 31.6 pg (27.0-33.0); MEAN CORPUSCULAR HGB CONC 33.5 g/dl (32.0-36.5); MEAN CORPUSCULAR VOLUME 94.2 fl (80.0-96.0); PLATELET COUNT, AUTOMATED 154 10^3/uL (150-450); RED BLOOD COUNT 5.03 10^6/uL (4.30-6.10); WHITE BLOOD COUNT 7.8 10^3/uL (4.0-10.0)
[2020-07-30] MEDS: POTASSIUM CHLORIDE 10 MEQ SR TABLET PO SCH ×3 (09:36→20:54)
[2020-07-30] MEDS: FOLIC ACID 1 MG TAB PO SCH (09:37)
[2020-07-30] MEDS: APIXABAN 5 MG TAB (ELIQUIS) PO SCH ×2 (09:37→20:54)
[2020-07-30] MEDS: THIAMINE 100 MG TAB PO SCH ×2 (09:37→20:54)
[2020-07-30] MEDS: TAMSULOSIN 0.4 MG CAP PO SCH (09:37)
[2020-07-30] MEDS: AMIODARONE 200 MG TAB (PACERONE) PO SCH (09:37)
[2020-07-30] MEDS: DIGOXIN 0.25 MG TAB PO SCH (09:39)
[2020-07-30] MEDS: MULTIVITAMINS/MINERALS THERAP 1 TAB PO SCH (09:39)
[2020-07-30 09:49] LABS: ALBUMIN 3.2 GM/DL (3.2-5.2); CALCIUM LEVEL 9.1 MG/DL (8.8-10.2); CREATININE FOR GFR 1.49 MG/DL (0.70-1.30); GLOMERULAR FILTRATION RATE 50.4 (>49); POTASSIUM SERUM 3.1 MEQ/L (3.5-5.1); TOTAL PROTEIN 5.6 GM/DL (6.4-8.2)
[2020-07-30] MEDS ORDERED: DIGOXIN INJ 0.5 MG/2 ML AMP (J1160) IV STA (11:53)
[2020-07-30] MEDS ORDERED: AMIODARONE HCL 150 MG in IV 1 EA IV STA (11:53)
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
[2020-07-30] MEDS: MIDODRINE 5 MG TAB PO SCH ×2 (12:47→17:37)
[2020-07-31] VITALS (18 sets, daily range): BP systolic 110–142; BP diastolic 66–94; O2SAT 93–97
[2020-07-31] MEDS: FUROSEMIDE 40MG/4ML VIAL (J1940) IV SCH ×2 (00:17→06:02)
[2020-07-31] MEDS ORDERED: DIGOXIN INJ 0.5 MG/2 ML AMP (J1160) IV STA (07:56)
[2020-07-31] MEDS ORDERED: AMIODARONE HCL 150 MG in IV 1 EA IV ONE (08:00)
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
[2020-07-31] MEDS ORDERED: AMIODARONE HCL 360 MG in IV 1 EA IV SCH (08:15)
[2020-07-31 08:16] LABS: CALCIUM LEVEL 8.4 MG/DL (8.8-10.2); CREATININE FOR GFR 1.88 MG/DL (0.70-1.30); GLOMERULAR FILTRATION RATE 38.5 (>49); POTASSIUM SERUM 3.6 MEQ/L (3.5-5.1)
[2020-07-31] MEDS: MIDODRINE 5 MG TAB PO SCH (08:29)
[2020-07-31] MEDS: TAMSULOSIN 0.4 MG CAP PO SCH (08:29)
[2020-07-31] MEDS: APIXABAN 5 MG TAB (ELIQUIS) PO SCH ×2 (08:29→20:32)
[2020-07-31] MEDS: FOLIC ACID 1 MG TAB PO SCH (08:29)
[2020-07-31] MEDS: THIAMINE 100 MG TAB PO SCH (08:34)
[2020-07-31] MEDS: MULTIVITAMINS/MINERALS THERAP 1 TAB PO SCH (08:34)
--- NOTE | 2020-07-31 08:46 | REP ---
INDICATION: sob COMPARISON: 07/29/2020 TECHNIQUE: Portable AP view of the chest FINDINGS: Moderate right pleural effusion and underlying passive atelectasis remains essentially stable. Left pleural effusion and passive atelectasis appears minimally improved. IMPRESSION: Minimally improved left pleural effusion and atelectasis. Stable right effusion. <Electronically signed by Thom Montejo > 07/31/20 [id number]
[2020-07-31] MEDS ORDERED: PREVNAR 13 VACCINE SYRINGE IM ONE (09:00)
[2020-07-31] MEDS ORDERED: FLUBLOK(EGG FREE)(QUAD)INFLUENZA VACC 0.5ML SYRINGE 18YRS & OLDER IM ONE (09:00)
[2020-07-31] MEDS: AMIODARONE HCL 360 MG in IV 1 EA IV SCH (14:27)
[2020-07-31] MEDS ORDERED: POTASSIUM CHLORIDE 10 MEQ SR TABLET PO ONE (16:00)
[2020-07-31 21:41] LABS: CALCIUM LEVEL 7.8 MG/DL (8.8-10.2); CREATININE FOR GFR 1.82 MG/DL (0.70-1.30); POTASSIUM SERUM 3.5 MEQ/L (3.5-5.1)
[2020-08-01] VITALS: BP 127/75
[2020-08-01] MEDS: AMIODARONE HCL 360 MG in IV 1 EA IV SCH (02:46)
[2020-08-01 04:24] VITALS: BP 139/76
[2020-08-01 05:12] LABS: CALCIUM LEVEL 7.7 MG/DL (8.8-10.2); CREATININE FOR GFR 1.9 MG/DL (0.70-1.30); GLOMERULAR FILTRATION RATE 38.1 (>49); MAGNESIUM LEVEL 1.9 MG/DL (1.8-2.4); POTASSIUM SERUM 3.4 MEQ/L (3.5-5.1); TROPONIN I 0.03 NG/ML (< 0.10)
[2020-08-01 08:00] VITALS: BP 123/82
[2020-08-01] MEDS ORDERED: DIGOXIN INJ 0.5 MG/2 ML AMP (J1160) IV STA (08:18)
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
[2020-08-01 08:48] LABS: DIGOXIN LEVEL 2.3 NG/ML (0.5-2.0)
[2020-08-01] MEDS ORDERED: NS 1,000 ML IV SCH (09:00)
[2020-08-01] MEDS ORDERED: CALCIUM GLUCONATE 1,000 MG in D5W MINI-BAG PLUS 100 ML IV ONE (09:00)
[2020-08-01 09:26] LABS: HEMATOCRIT 47.1 % (42.0-52.0); MEAN CORPUSCULAR HEMOGLOBIN 32.1 pg (27.0-33.0); MEAN CORPUSCULAR VOLUME 94.6 fl (80.0-96.0); PLATELET COUNT, AUTOMATED 153 10^3/uL (150-450); RED BLOOD COUNT 4.98 10^6/uL (4.30-6.10); WHITE BLOOD COUNT 8.8 10^3/uL (4.0-10.0)
[2020-08-01] MEDS: TAMSULOSIN 0.4 MG CAP PO SCH (10:00)
[2020-08-01] MEDS ORDERED: POTASSIUM CHLORIDE 10 MEQ SR TABLET PO ONE (10:00)
[2020-08-01] MEDS ORDERED: MAG SULF 1GM/100ML (MAG RUN) 1 GM in IV 1 EA IV ONE (10:00)
[2020-08-01] MEDS: APIXABAN 5 MG TAB (ELIQUIS) PO SCH ×2 (10:01→20:02)
[2020-08-01] MEDS: MULTIVITAMINS/MINERALS THERAP 1 TAB PO SCH (10:01)
[2020-08-01] MEDS: FOLIC ACID 1 MG TAB PO SCH (10:01)
[2020-08-01 11:26] VITALS: BP 129/80
[2020-08-01] MEDS: AMIODARONE 200 MG TAB (PACERONE) PO SCH ×2 (12:25→18:45)
[2020-08-01 15:42] VITALS: BP 133/77
[2020-08-01 20:00] VITALS: BP 120/78
[2020-08-02] VITALS: BP 130/81
[2020-08-02] MEDS: AMIODARONE 200 MG TAB (PACERONE) PO SCH ×4 (00:06→19:03)
[2020-08-02 04:00] VITALS: BP 139/89
[2020-08-02 06:13] LABS: HEMATOCRIT 47.8 % (42.0-52.0); HEMOGLOBIN 15.5 g/dl (13.5-17.5); MEAN CORPUSCULAR HEMOGLOBIN 30.6 pg (27.0-33.0); MEAN CORPUSCULAR HGB CONC 32.4 g/dl (32.0-36.5); MEAN CORPUSCULAR VOLUME 94.5 fl (80.0-96.0); PLATELET COUNT, AUTOMATED 138 10^3/uL (150-450); RED BLOOD COUNT 5.06 10^6/uL (4.30-6.10); WHITE BLOOD COUNT 7.2 10^3/uL (4.0-10.0)
[2020-08-02 06:33] LABS: CALCIUM LEVEL 7.9 MG/DL (8.8-10.2); CREATININE FOR GFR 1.78 MG/DL (0.70-1.30); POTASSIUM SERUM 3.4 MEQ/L (3.5-5.1)
[2020-08-02 08:00] VITALS: BP 123/78
[2020-08-02] MEDS: MULTIVITAMINS/MINERALS THERAP 1 TAB PO SCH (08:36)
[2020-08-02] MEDS: APIXABAN 5 MG TAB (ELIQUIS) PO SCH ×2 (08:36→20:08)
[2020-08-02] MEDS: FOLIC ACID 1 MG TAB PO SCH (08:36)
[2020-08-02] MEDS: TAMSULOSIN 0.4 MG CAP PO SCH (08:36)
[2020-08-02] MEDS ORDERED: POTASSIUM CHLORIDE 10 MEQ SR TABLET PO ONE (09:00)
[2020-08-02] MEDS ORDERED: CALCIUM GLUCONATE 1,000 MG in D5W MINI-BAG PLUS 100 ML IV ONE (09:00)
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
[2020-08-02] MEDS: NS 1,000 ML IV SCH (09:23)
[2020-08-02 12:00] VITALS: BP 106/72
[2020-08-02 15:59] VITALS: BP 121/78
[2020-08-02 20:00] VITALS: BP 115/69
[2020-08-02 20:51] LABS: CALCIUM LEVEL 7.8 MG/DL (8.8-10.2); CREATININE FOR GFR 1.9 MG/DL (0.70-1.30); GLOMERULAR FILTRATION RATE 38.1 (>49); POTASSIUM SERUM 3.6 MEQ/L (3.5-5.1)
[2020-08-03] VITALS (16 sets, daily range): BP systolic 110–133; BP diastolic 61–90; O2SAT 94–98
[2020-08-03] MEDS: AMIODARONE 200 MG TAB (PACERONE) PO SCH ×4 (00:21→17:46)
[2020-08-03 06:01] LABS: HEMATOCRIT 45.4 % (42.0-52.0); HEMOGLOBIN 15.1 g/dl (13.5-17.5); MEAN CORPUSCULAR HEMOGLOBIN 31.7 pg (27.0-33.0); MEAN CORPUSCULAR HGB CONC 33.3 g/dl (32.0-36.5); MEAN CORPUSCULAR VOLUME 95.4 fl (80.0-96.0); PLATELET COUNT, AUTOMATED 136 10^3/uL (150-450); RED BLOOD COUNT 4.76 10^6/uL (4.30-6.10); WHITE BLOOD COUNT 6.1 10^3/uL (4.0-10.0)
[2020-08-03] MEDS: NS 1,000 ML IV SCH (06:30)
[2020-08-03 06:38] LABS: CALCIUM LEVEL 8.3 MG/DL (8.8-10.2); CREATININE FOR GFR 1.92 MG/DL (0.70-1.30); GLOMERULAR FILTRATION RATE 37.6 (>49); POTASSIUM SERUM 3.5 MEQ/L (3.5-5.1)
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
[2020-08-03] MEDS: TAMSULOSIN 0.4 MG CAP PO SCH (09:06)
[2020-08-03] MEDS: APIXABAN 5 MG TAB (ELIQUIS) PO SCH ×2 (09:06→21:32)
[2020-08-03] MEDS: MULTIVITAMINS/MINERALS THERAP 1 TAB PO SCH (09:06)
[2020-08-03] MEDS: FOLIC ACID 1 MG TAB PO SCH (09:06)
[2020-08-03 12:38] LABS: APPEARANCE, URINE MANUAL CLOUDY (CLEAR); COLOR, URINE MANUAL BROWN (YELLOW)
[2020-08-03 12:39] LABS: BILIRUBIN, URINE MANUAL NEGATIVE (NEGATIVE); BLOOD URINE MANUAL POSITIVE (NEGATIVE); GLUCOSE, URINE (UA) MANUAL NEGATIVE (NEGATIVE); KETONE, URINE MANUAL NEGATIVE (NEGATIVE); UROBILINOGEN, URINE MANUAL NORMAL (NORMAL)
[2020-08-03 12:40] LABS: LEUKOCYTE ESTERASE, URINE MAN TRACE (NEGATIVE); NITRITE, URINE MANUAL NEGATIVE (NEGATIVE); PROTEIN, URINE MANUAL 2+ mg/dL (NEGATIVE)
[2020-08-03] MEDS: FUROSEMIDE 40MG/4ML VIAL (J1940) IV SCH ×2 (12:40→21:32)
--- NOTE | 2020-08-03 12:49 | REP ---
INDICATION: ARF, hematuria COMPARISON: 08/08/2017 TECHNIQUE: Axial noncontrast images from the lung bases to the pubic symphysis with coronal and sagittal reformations. This CT examination was performed using the following dose reduction techniques: Automated exposure control, adjustment of mA and/or kv according to the patient's size, and use of iterative reconstruction technique. FINDINGS: Lung bases demonstrate moderate to large right and small to moderate left pleural effusions with associated partial collapse to the lower lobes. Small amount of ascites is appreciated along with moderate to significant subcutaneous edema/anasarca. Liver, spleen, pancreas, and bilateral adrenal glands and kidneys appear normal. Kidneys demonstrate moderate hydroureteronephrosis along with distended bladder which may be related to outlet obstruction. Cholelithiasis noted without acute cholecystitis. Evaluation of the enteric system demonstrates suggestions for prior gastric pull-through with distended fluid filled residual esophagus/intrathoracic stomach. There is no evidence for bowel obstruction. A large right inguinal hernia containing fluid, mesenteric fat, and multiple nonobstructed loops of small bowel. Colonic diverticula noted without acute diverticulitis. Pelvis demonstrates distended bladder as described above, right inguinal hernia as described above, and prostatomegaly. No retroperitoneal adenopathy. Abdominal aorta without aneurysm. Skeletal structures demonstrate degenerative changes. IMPRESSION: 1. Bilateral pleural effusions, small amount of ascites, and diffuse subcutaneous edema/anasarca. 2. Moderate bilateral hydroureteronephrosis and distended bladder possibly related to outlet obstruction. 3. Large right inguinal hernia containing mesenteric fat, ascites, and multiple loops of nonobstructed small bowel. 4. Findings to suggest prior surgery involving the esophagus and stomach likely related to esophagectomy and gastric pull-through with distended fluid filled appearance to the presumed distal esophagus/stomach extending to the duodenum in the right upper quadrant (which appears stable compared with 08/08/2017). <Electronically signed by Thom Montejo > 08/03/20 [id number]
[2020-08-03 12:53] LABS: BACTERIA, URINE SMALL AMOUNT; RBC, URINE TNTC /hpf (0-3)
[2020-08-03 12:55] LABS: HYALINE CAST, URINE NONE SEEN /lpf (0-1); SQUAMOUS EPITHELIAL CELL URINE SMALL AMOUNT /hpf (SMALL AMT)
[2020-08-03] MEDS ORDERED: POTASSIUM CHLORIDE 10 MEQ SR TABLET PO ONE (18:00)
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
[2020-08-03] MEDS: POTASSIUM CHLORIDE 10 MEQ SR TABLET PO SCH (21:33)
[2020-08-04] MEDS: AMIODARONE 200 MG TAB (PACERONE) PO SCH ×4 (00:38→17:12)
[2020-08-04 05:00] VITALS: BP 110/72; O2SAT 96
[2020-08-04] MEDS: FUROSEMIDE 40MG/4ML VIAL (J1940) IV SCH (05:13)
[2020-08-04 05:57] LABS: HEMATOCRIT 44.3 % (42.0-52.0); HEMOGLOBIN 14.5 g/dl (13.5-17.5); MEAN CORPUSCULAR HEMOGLOBIN 30.8 pg (27.0-33.0); MEAN CORPUSCULAR HGB CONC 32.7 g/dl (32.0-36.5); MEAN CORPUSCULAR VOLUME 94.1 fl (80.0-96.0); PLATELET COUNT, AUTOMATED 143 10^3/uL (150-450); RED BLOOD COUNT 4.71 10^6/uL (4.30-6.10); WHITE BLOOD COUNT 6.6 10^3/uL (4.0-10.0)
[2020-08-04 06:16] LABS: CALCIUM LEVEL 8.6 MG/DL (8.8-10.2); CREATININE FOR GFR 1.69 MG/DL (0.70-1.30); GLOMERULAR FILTRATION RATE 43.6 (>49); MAGNESIUM LEVEL 1.7 MG/DL (1.8-2.4); POTASSIUM SERUM 3.3 MEQ/L (3.5-5.1)
[2020-08-04 09:00] VITALS: O2SAT 95
[2020-08-04] MEDS: NYSTATIN 100,000 UNITS/GM TOPICAL PWD 15 GM TOP SCH (09:00)
[2020-08-04] MEDS: FOLIC ACID 1 MG TAB PO SCH (10:36)
[2020-08-04] MEDS: TAMSULOSIN 0.4 MG CAP PO SCH (10:36)
[2020-08-04] MEDS: MULTIVITAMINS/MINERALS THERAP 1 TAB PO SCH (10:37)
[2020-08-04] MEDS: POTASSIUM CHLORIDE 10 MEQ SR TABLET PO SCH ×3 (10:37→20:12)
[2020-08-04] MEDS: APIXABAN 5 MG TAB (ELIQUIS) PO SCH ×2 (10:37→20:12)
[2020-08-04] MEDS ORDERED: MAG SULF 1GM/100ML (MAG RUN) 1 GM in IV 1 EA IV ONE (11:45)
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
[2020-08-04] MEDS ORDERED: ONDANSETRON 4MG/2ML VIAL IV PRN (12:15)
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
[2020-08-04 14:00] VITALS: BP 117/80
[2020-08-04 14:37] LABS: CLOSTRIDIUM DIFFICILE PCR NEGATIVE (NEGATIVE)
[2020-08-04] MEDS: FINASTERIDE 5 MG TAB PO SCH (20:12)
[2020-08-04 22:00] VITALS: BP 116/78
[2020-08-05] MEDS: AMIODARONE 200 MG TAB (PACERONE) PO SCH ×4 (00:30→17:09)
[2020-08-05 04:26] VITALS: O2SAT 93
[2020-08-05 06:00] VITALS: BP 116/80
[2020-08-05 06:38] LABS: HEMATOCRIT 43.2 % (42.0-52.0); MEAN CORPUSCULAR HEMOGLOBIN 30.6 pg (27.0-33.0); MEAN CORPUSCULAR HGB CONC 32.4 g/dl (32.0-36.5); MEAN CORPUSCULAR VOLUME 94.3 fl (80.0-96.0); PLATELET COUNT, AUTOMATED 144 10^3/uL (150-450); RED BLOOD COUNT 4.58 10^6/uL (4.30-6.10); WHITE BLOOD COUNT 7.6 10^3/uL (4.0-10.0)
[2020-08-05 07:03] LABS: CALCIUM LEVEL 8.4 MG/DL (8.8-10.2); CREATININE FOR GFR 1.71 MG/DL (0.70-1.30); MAGNESIUM LEVEL 1.8 MG/DL (1.8-2.4); POTASSIUM SERUM 3.5 MEQ/L (3.5-5.1)
[2020-08-05] MEDS: MULTIVITAMINS/MINERALS THERAP 1 TAB PO SCH (08:28)
[2020-08-05] MEDS: POTASSIUM CHLORIDE 10 MEQ SR TABLET PO SCH ×3 (08:28→20:00)
[2020-08-05] MEDS: APIXABAN 5 MG TAB (ELIQUIS) PO SCH ×2 (08:29→20:00)
[2020-08-05] MEDS: FOLIC ACID 1 MG TAB PO SCH (08:29)
[2020-08-05] MEDS: TAMSULOSIN 0.4 MG CAP PO SCH (08:29)
[2020-08-05] MEDS: NYSTATIN 100,000 UNITS/GM TOPICAL PWD 15 GM TOP SCH (10:52)
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
[2020-08-05 14:00] VITALS: BP 123/86
--- NOTE | 2020-08-05 17:58 | ECGEPIP ---
[facility] Test Date: 2020-08-04 Pat Name: CROW MURRAY Department: Room: [place] [address] Gender: Male Java [employer] Developer: DIOGO : 1955 Requested By: MISTI Lozano Order Number: [id number] Reading MD: Noe Franklin Measurements Intervals Parks Rate: 117 P: -7 MA: 212 QRS: 12 QRSD: 86 T: -34 QT: 280 QTc: 391 Interpretive Statements Atrial fibrillation with rapid ventricular response Diffuse repolarization abnormalities Compared to prior tracing of 07/28/2020, heart rate is slower Electronically Signed on 08-05-2020 17:57:59 EST by Noe Franklin
[2020-08-05 19:33] VITALS: O2SAT 95
[2020-08-05] MEDS: FINASTERIDE 5 MG TAB PO SCH (20:00)
[2020-08-05 21:45] VITALS: O2SAT 96
[2020-08-05 22:00] VITALS: BP 124/87
[2020-08-06] MEDS: AMIODARONE 200 MG TAB (PACERONE) PO SCH ×4 (00:05→17:04)
[2020-08-06 06:00] VITALS: BP 121/86
[2020-08-06 06:05] LABS: HEMATOCRIT 45.6 % (42.0-52.0); MEAN CORPUSCULAR HEMOGLOBIN 31.7 pg (27.0-33.0); MEAN CORPUSCULAR HGB CONC 32.9 g/dl (32.0-36.5); MEAN CORPUSCULAR VOLUME 96.4 fl (80.0-96.0); PLATELET COUNT, AUTOMATED 154 10^3/uL (150-450); RED BLOOD COUNT 4.73 10^6/uL (4.30-6.10); WHITE BLOOD COUNT 8.3 10^3/uL (4.0-10.0)
[2020-08-06 06:31] LABS: CALCIUM LEVEL 8.1 MG/DL (8.8-10.2); CREATININE FOR GFR 1.86 MG/DL (0.70-1.30); MAGNESIUM LEVEL 1.9 MG/DL (1.8-2.4); POTASSIUM SERUM 4.2 MEQ/L (3.5-5.1)
[2020-08-06] MEDS: MULTIVITAMINS/MINERALS THERAP 1 TAB PO SCH (08:08)
[2020-08-06] MEDS: FOLIC ACID 1 MG TAB PO SCH (08:08)
[2020-08-06] MEDS: TAMSULOSIN 0.4 MG CAP PO SCH (08:08)
[2020-08-06] MEDS: APIXABAN 5 MG TAB (ELIQUIS) PO SCH ×2 (08:08→20:11)
[2020-08-06] MEDS: NYSTATIN 100,000 UNITS/GM TOPICAL PWD 15 GM TOP SCH (08:09)
--- NOTE | 2020-08-06 10:35 | IPN ---
PROGRESS NOTE DATE: 08/06/2020 SUBJECTIVE: Dharmesh is [facility]. He is admitted with atrial fibrillation with rapid ventricular response, acute kidney injury, congestive heart failure, reduced ejection fraction, esophageal cancer, and previously electrolyte disturbances which have essentially improved. He is waiting for a trial of voiding so he can go home. He is not having any chest pain. He says he is a little short of breath. He also has anxiety attacks which sometimes cause him to feel breathless in the absence of organic cough. This happened last night. He feels better today. PHYSICAL EXAMINATION: VITAL SIGNS: Blood pressure is 120/86, respiratory rate 18, pulse is 113. GENERAL APPEARANCE: He is resting comfortably in no distress. Heart rate was around 90 when I examining him. LUNGS: Clear. HEART: Regular rate and rhythm. ABDOMEN: Soft, nontender. No peripheral edema. LABS: Electrolytes unremarkable. Potassium is 4.2. Creatinine stable at 1.8. CBC unremarkable. IMPRESSION: 1. Atrial fibrillation, his rate is still mildly elevated. He is off his rate control medications including his Digoxin. If rate remains elevated, we might have to restart a low dose of Digoxin and will have close monitoring as he became Dig toxic on 08/02/2020. 2. He has obstructive uropathy, he has a Leon catheter in place. Will discontinue this today and will have a trial of voiding. 3. Congestive heart failure with reduced ejection fraction. He is not on an WLILY inhibitor nor Entresto due to renal problems. Nephrology is following him. 4. History of esophageal cancer, chronic dysphagia, no sign of aspiration. 5. Disposition depends on his trial of voiding and then can discharge him later today.
[2020-08-06 11:12] VITALS: O2SAT 96
[2020-08-06] MEDS: FUROSEMIDE 40 MG TAB PO SCH ×2 (11:47→17:04)
[2020-08-06] MEDS: POTASSIUM CHLORIDE 10 MEQ SR TABLET PO SCH ×2 (11:47→20:11)
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
[2020-08-06 14:00] VITALS: BP 120/85
[2020-08-06] MEDS: FINASTERIDE 5 MG TAB PO SCH (20:11)
[2020-08-06 22:00] VITALS: BP 121/86
[2020-08-07] MEDS: AMIODARONE 200 MG TAB (PACERONE) PO SCH ×4 (00:35→17:05)
[2020-08-07 06:00] VITALS: BP 125/88
[2020-08-07 06:25] LABS: HEMATOCRIT 48.4 % (42.0-52.0); HEMOGLOBIN 15.1 g/dl (13.5-17.5); MEAN CORPUSCULAR HEMOGLOBIN 30.7 pg (27.0-33.0); MEAN CORPUSCULAR HGB CONC 31.2 g/dl (32.0-36.5); MEAN CORPUSCULAR VOLUME 98.4 fl (80.0-96.0); PLATELET COUNT, AUTOMATED 187 10^3/uL (150-450); RED BLOOD COUNT 4.92 10^6/uL (4.30-6.10); WHITE BLOOD COUNT 8.7 10^3/uL (4.0-10.0)
[2020-08-07 06:51] LABS: CALCIUM LEVEL 8.9 MG/DL (8.8-10.2); CREATININE FOR GFR 2.37 MG/DL (0.70-1.30); GLOMERULAR FILTRATION RATE 29.5 (>49); MAGNESIUM LEVEL 2.1 MG/DL (1.8-2.4)
[2020-08-07] MEDS ORDERED: bisoproloL fumarate 5 MG TAB PO SCH (09:00)
--- NOTE | 2020-08-07 09:09 | IPN ---
PROGRESS NOTE DATE: 08/07/2020 Dharmesh is stable from yesterday. I had planned to discontinue his Leon catheter yesterday per sign out from his previous attending but after discussion with Dr. Lilly it was decided to keep his Leon catheter in due to high risk of retention. The plan is for him to be discharged on that and see urology as an outpatient. The patient feels the same as yesterday. He now wants placement in some supervised living arrangement. Blood pressure 125/88, pulse 100, respiratory rate 18. General appearance: Alert, conversant, no distress. Lungs: Clear. Heart: Regular rate and rhythm, rate of 100. Abdomen: Soft, nontender, no peripheral edema. IMPRESSION: 1. Acute urinary retention. Continue Leon catheter and he will be discharged with an indwelling Leon catheter with outpatient urology followup. 2. Atrial fibrillation. Heart rate remains elevated. I think his blood pressure is adequate to start low dose beta justin. I will put him on low dose metoprolol. He is on Eliquis for anticoagulant and amiodarone. 3. Congestive heart failure with reduced ejection fraction. Continue his diuretic therapy. He is not on an angiotensin converting enzyme (WILLY) inhibitor nor Entresto due to renal problems. 4. Disposition. He wants to be placed in a supervised living arrangement.
[2020-08-07] MEDS: TAMSULOSIN 0.4 MG CAP PO SCH (10:48)
[2020-08-07] MEDS: APIXABAN 5 MG TAB (ELIQUIS) PO SCH ×2 (10:49→20:32)
[2020-08-07] MEDS: FOLIC ACID 1 MG TAB PO SCH (10:49)
[2020-08-07] MEDS: FUROSEMIDE 40 MG TAB PO SCH ×2 (10:49→17:00)
[2020-08-07] MEDS: MULTIVITAMINS/MINERALS THERAP 1 TAB PO SCH (10:49)
[2020-08-07] MEDS: NYSTATIN 100,000 UNITS/GM TOPICAL PWD 15 GM TOP SCH (10:49)
[2020-08-07] MEDS: MOM 30ML SUSPENSION UDC PO PRN (11:02)
[2020-08-07 14:00] VITALS: BP_SYST 90; BP_SYST 91; BP_DIAS 65; BP_DIAS 66
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
[2020-08-07 15:00] VITALS: BP_SYST 80; BP_SYST 88; BP_DIAS 58
[2020-08-07 16:01] VITALS: O2SAT 98
[2020-08-07] MEDS ORDERED: SENOKOT S TAB PO ONE (16:45)
[2020-08-07] MEDS ORDERED: MIRALAX *UNIT DOSE* 17GM PACKET PO ONE (16:45)
[2020-08-07] MEDS: FINASTERIDE 5 MG TAB PO SCH (20:32)
[2020-08-07 20:34] VITALS: BP 94/68
[2020-08-08] VITALS (8 sets, daily range): BP systolic 98–115; BP diastolic 68–78; O2SAT 95–96
[2020-08-08] MEDS: AMIODARONE 200 MG TAB (PACERONE) PO SCH ×5 (00:57→23:49)
[2020-08-08 06:03] LABS: HEMATOCRIT 45.4 % (42.0-52.0); HEMOGLOBIN 14.8 g/dl (13.5-17.5); MEAN CORPUSCULAR HEMOGLOBIN 31.6 pg (27.0-33.0); MEAN CORPUSCULAR HGB CONC 32.6 g/dl (32.0-36.5); MEAN CORPUSCULAR VOLUME 96.8 fl (80.0-96.0); PLATELET COUNT, AUTOMATED 184 10^3/uL (150-450); RED BLOOD COUNT 4.69 10^6/uL (4.30-6.10); WHITE BLOOD COUNT 7.8 10^3/uL (4.0-10.0)
[2020-08-08 06:34] LABS: CALCIUM LEVEL 8.5 MG/DL (8.8-10.2); CREATININE FOR GFR 2.51 MG/DL (0.70-1.30); GLOMERULAR FILTRATION RATE 27.6 (>49); POTASSIUM SERUM 4.7 MEQ/L (3.5-5.1)
[2020-08-08] MEDS ORDERED: BISOPROLOL FUM 2.5 MG PER 1/2TAB PO SCH (09:00)
[2020-08-08] MEDS: MIRALAX *UNIT DOSE* 17GM PACKET PO SCH ×2 (09:50→20:39)
[2020-08-08] MEDS: APIXABAN 5 MG TAB (ELIQUIS) PO SCH ×2 (09:51→20:39)
[2020-08-08] MEDS: MOM 30ML SUSPENSION UDC PO PRN (09:51)
[2020-08-08] MEDS: FOLIC ACID 1 MG TAB PO SCH (09:51)
[2020-08-08] MEDS: MULTIVITAMINS/MINERALS THERAP 1 TAB PO SCH (09:52)
[2020-08-08] MEDS: TAMSULOSIN 0.4 MG CAP PO SCH (09:52)
[2020-08-08] MEDS: SENOKOT S TAB PO SCH ×2 (09:53→20:39)
[2020-08-08] MEDS: NYSTATIN 100,000 UNITS/GM TOPICAL PWD 15 GM TOP SCH (09:53)
--- NOTE | 2020-08-08 10:34 | IPN ---
PROGRESS NOTE DATE: 08/08/2020 SUBJECTIVE: Dharmesh is stable. He has low blood counts. The patient today states he is otherwise doing well. He has urinary obstruction and is going to be discharged on an indwelling Leon catheter. He had urinary retention with bilateral hydronephrosis and atrial flutter/fibrillation. His heart rates are a little better than yesterday. I tried to initiate some Bisoprolol but his blood pressure was too low and he has not received this today. He is on amiodarone and Eliquis. PHYSICAL EXAMINATION: VITAL SIGNS: Heart rate 100 to 110. BP is 90s to 100 range systolic. GENERAL: He is alert and conversant, in no distress. LUNGS: Clear. HEART: Regular rhythm, tachycardic. ABDOMEN: Soft, nontender. No masses. EXTREMITIES: No peripheral edema. LABORATORY DATA: CBC unremarkable. Sodium 137, potassium 4.7, BUN 33, creatinine 2.5. Glucose 113. IMPRESSION: 1. Atrial fibrillation, rapid ventricular response. I had to stop his Bisoprolol because of hypotension. We can start low dose Digoxin, we have to watch this closely as he was Digoxin toxic earlier on his hospitalization. 2. Acute kidney injury superimposed on chronic kidney disease. His renal function is steadily declining over the last few days. Nephrology is on the case. He has an indwelling Leon catheter. His potassium level is currently satisfactory. 3. Constipation. He has Miralax ordered.
[2020-08-08] MEDS ORDERED: FUROSEMIDE injection 250 MG in D5W 225 ML IV SCH ×2 (11:00→14:00)
--- NOTE | 2020-08-08 11:32 | IPN ---
PROGRESS NOTE DATE: 08/08/2020 SUBJECTIVE: The patient is seen and examined this morning at the bedside. He reports that he has been up and out of bed. He denies shortness of breath at rest and also denies dyspnea with mild exertion. He was hypotensive yesterday after receiving one dose of Bisoprolol and his diuretics were subsequently held. Today, he is switched over to Digoxin. His renal function continues to deteriorate. He remains with a Leon catheter and complains of leg edema. PHYSICAL EXAMINATION: VITAL SIGNS: Temperature is 98.9, pulse is 101, respiratory rate is 17, blood pressure is 100/72, saturating 96% on room air. Intake yesterday was 1670, urine output was 1650. Weight on the bed scale today was not recorded. GENERAL: The patient was seen lying in bed, appears older than stated age. The head of the bed is elevated, awake and alert, in no acute distress. There is chronic scarring and postsurgical changes of the left forehead and eye orbit. HEART: His heart sounds are irregular and mildly tachycardic. LUNGS: Bibasilar rales. There is no accessory muscle use. No tachypnea. He is comfortable on room air. ABDOMEN: Soft and nontender. EXTREMITIES: 2+ leg edema that comes all the way up to the hip and dependent areas. NEUROLOGIC: He is awake and alert and baseline mentation. PSYCHIATRIC: Appropriate mood and affect. GENITOURINARY: There is a Leon catheter in place. LABORATORY DATA: Today's labs show a sodium of 137, potassium of 4.7, bicarbonate 31, BUN 33, creatinine increased to 2.5 from 1.6 and 1.7 a couple of days ago. Hemoglobin 14.8, platelets 184,000. Chest x-ray is ordered. INPATIENT MEDICATIONS: I ordered Lasix drip at 5 mg an hour. His Bisoprolol was discontinued. He was switched to Digoxin 0.125 mg p.o. daily by the primary service. He continues on amiodarone and Eliquis. His remainder of medications are unchanged from prior. PROBLEMS: 1. Decompensated systolic congestive heart failure. An echocardiogram in April with left ventricular ejection fraction of 35%. The patient has ongoing peripheral edema and chest x-ray is ordered for today. He was on postobstructive diuresis several days ago after his bladder obstruction was relieved. However, now his urine output has decreased. His diuretic was held yesterday because he was hypotensive after receiving a beta justin. I am going to put him on a Lasix drip at 5 mg an hour and we will see how he responds to that. I am also putting him on a fluid restriction of 1800 ml. 2. Atrial fibrillation, unfortunately the patient had about 30 to 40 point drop in systolic blood pressure after trial of low dose beta justin yesterday. Hence, Bisoprolol was stopped and he is now on Digoxin. He is also on amiodarone and Eliquis. In view of his hemodynamic instability, I will opt for Lasix drip and we will see how he responds to the same. 3. Acute kidney injury superimposed on CKD Stage III. His baseline creatinine is in the low 1's. Initial SPEEDY was related to obstructive uropathy. He should continue with the Leon catheter for at least a week before voiding trial. His creatinine had downtrended to 1.6 after a Leon was placed, however the past four days his renal function has deteriorated, most likely related to cardiorenal syndrome. Diuretics have been adjusted as above. 4. Obstructive uropathy. The patient had bilateral hydronephrosis and bladder outlet obstruction. He is now on Flomax and finasteride and has a Leon catheter and he will need to follow-up with Urology as an outpatient. I am going to get repeat renal US to make sure his obstruction is relieved given worsening GFR MTDD
--- NOTE | 2020-08-08 11:44 | REP ---
INDICATION: effusions, re-eval. decompensated chf COMPARISON: 07/31/2020 TECHNIQUE: Portable AP view of the chest FINDINGS: Moderate bilateral pleural effusions and bibasilar opacities (right greater than left) are similar to prior examination. Underlying elements of pulmonary vascular congestion cannot be excluded. No pneumothorax. IMPRESSION: Moderate bilateral pleural effusions and bibasilar opacities along with findings to suggest pulmonary vascular congestion similar to prior examination. <Electronically signed by Thom Montejo > 08/08/20 1147
[2020-08-08] MEDS: DIGOXIN 0.125 MG TAB PO SCH (12:04)
[2020-08-08] MEDS: FINASTERIDE 5 MG TAB PO SCH (20:39)
[2020-08-09] VITALS (12 sets, daily range): BP systolic 82–102; BP diastolic 52–70; O2SAT 95–96
[2020-08-09] MEDS: AMIODARONE 200 MG TAB (PACERONE) PO SCH ×4 (06:22→23:26)
[2020-08-09 06:52] LABS: HEMATOCRIT 42.8 % (42.0-52.0); HEMOGLOBIN 13.8 g/dl (13.5-17.5); MEAN CORPUSCULAR HEMOGLOBIN 31.1 pg (27.0-33.0); MEAN CORPUSCULAR HGB CONC 32.2 g/dl (32.0-36.5); MEAN CORPUSCULAR VOLUME 96.4 fl (80.0-96.0); PLATELET COUNT, AUTOMATED 196 10^3/uL (150-450); RED BLOOD COUNT 4.44 10^6/uL (4.30-6.10); WHITE BLOOD COUNT 8.2 10^3/uL (4.0-10.0)
[2020-08-09 07:22] LABS: CALCIUM LEVEL 8.3 MG/DL (8.8-10.2); CREATININE FOR GFR 2.84 MG/DL (0.70-1.30); GLOMERULAR FILTRATION RATE 23.9 (>49); POTASSIUM SERUM 4.3 MEQ/L (3.5-5.1)
[2020-08-09] MEDS: MIRALAX *UNIT DOSE* 17GM PACKET PO SCH ×2 (09:00→20:25)
--- NOTE | 2020-08-09 09:15 | REP ---
INDICATION: hydronephrosis COMPARISON: 04/30/2020 TECHNIQUE: Real time babin scale ultrasound examination using curved array transducer. FINDINGS: Kidneys are relatively normal in reniform shape and demonstrate moderate bilateral hydroureteronephrosis. No obvious nephrolithiasis or renal mass lesion. Right kidney measures 11.6 x 5.5 x 5.1 cm. Left kidney measures 13.4 x 6.6 x 5.7 cm and includes 3.3 x 3.0 x 3.6 cm upper pole simple cyst. The bladder is markedly distended currently measuring 18.4 x 13.4 x 12.5 cm and containing scattered nonspecific debris. Patient's Leon catheter balloon could not be identified within the bladder. IMPRESSION: 1. Moderate bilateral hydroureteronephrosis. 2. Distended urinary bladder with nonspecific debris. The patient's Leon catheter balloon could not be confirmed/identified within the bladder. <Electronically signed by Thom Montejo > 08/09/20 0911
[2020-08-09] MEDS: TAMSULOSIN 0.4 MG CAP PO SCH (09:29)
[2020-08-09] MEDS: NYSTATIN 100,000 UNITS/GM TOPICAL PWD 15 GM TOP SCH (09:29)
[2020-08-09] MEDS: MULTIVITAMINS/MINERALS THERAP 1 TAB PO SCH (09:29)
[2020-08-09] MEDS: FOLIC ACID 1 MG TAB PO SCH (09:30)
[2020-08-09] MEDS: APIXABAN 5 MG TAB (ELIQUIS) PO SCH ×2 (09:31→20:23)
[2020-08-09] MEDS: SENOKOT S TAB PO SCH ×2 (09:31→20:25)
[2020-08-09] MEDS: DIGOXIN 0.125 MG TAB PO SCH (09:31)
[2020-08-09] MEDS ORDERED: oxyBUTYnin 5 MG TAB PO PRN (10:15)
[2020-08-09] MEDS ORDERED: LR 500 ML IV ONE (11:30)
[2020-08-09] MEDS: cefTRIAXone SOD 1 GM in D5W MINI-BAG PLUS 50 ML IV SCH (13:39)
--- NOTE | 2020-08-09 16:24 | IPN ---
PROGRESS NOTE DATE: 08/09/2020 SUBJECTIVE: Dharmesh developed acute urinary retention today. This was despite having a Leon catheter in place. Nursing staff noticed that he was becoming distended. He had a renal ultrasound done yesterday. It was not read until today but they noticed that his bladder was distended, that there was no Leon catheter balloon seen within the bladder, and he had bilateral hydronephrosis. Nursing notes replaced his Leon catheter and we removed his 16 Algerian Leon and inserted a new 18 Algerian Leon and drained 2200 mL of light mayra urine with some small clots. Now there is some blood in the tubing. He is having some bladder spasms. PHYSICAL EXAM: VITAL SIGNS: Blood pressure 102/56, pulse of 115, respiratory rate 18, temperature 98.8 degrees. LUNGS: Clear. HEART: Regular rate and rhythm. ABDOMEN: Soft. Tender over the suprapubic area (prior to replacing the catheter). He looked moderately uncomfortable prior to that procedure. LABS: White count 8.2, hemoglobin 13.8, platelets 186. Sodium 136, potassium 4.3, BUN 56, creatinine 2.8. IMPRESSION AND PLAN: 1. Acute urinary retention despite Leon catheter. Replacing the catheter has led to good urinary output. This should decompress the renal function. 2. Severely decompensated systolic congestive heart failure. Echocardiogram showed an ejection fraction of 35%. Nephrology has him on a Lasix drip 5 mg an hour. I think some of his declining renal function is related to the obstructive uropathy. I will defer diuretic dosing to Nephrology. 3. Atrial fibrillation. He is back on Digoxin which we have to watch closely as he was Dig toxic earlier in his admission on Amiodarone and Eliquis. 4. Acute kidney injury superimposed on chronic kidney disease. In retrospect this appears to have been due to obstructive uropathy which should improve now that he has had his catheter replaced.
[2020-08-09 17:13] LABS: CALCIUM LEVEL 8.3 MG/DL (8.8-10.2); CREATININE FOR GFR 2.7 MG/DL (0.70-1.30); GLOMERULAR FILTRATION RATE 25.4 (>49); POTASSIUM SERUM 4.2 MEQ/L (3.5-5.1)
--- NOTE | 2020-08-09 17:22 | IPN ---
NEPHROLOGY PROGRESS NOTE DATE: 08/09/2020 SUBJECTIVE: The patient is seen and examined this morning at the bedside. I sent him for a repeat renal imaging with a renal ultrasound because his renal function had been deteriorating the past few days and I wanted to make sure that his obstruction had been relieved. The renal ultrasound however demonstrated very large volume bladder and ongoing bladder obstruction. His Leon catheter was removed and a #18 Greek Leon was placed with immediate output of 2 liters of urine, and the patient has thus since been polyuric and blood pressures have become soft as well with systolic in the 80's this morning and he is receiving lactated Ringer's as a replacement fluid. He denies any shortness of breath, denies any dizziness, tells me he has been getting up and ambulating to the bathroom and has not felt lightheaded. VITAL SIGNS: Temperature 98.8, pulse 83, respiratory rate 17, blood pressure 82/52, saturating 94% on room air. INTAKE AND OUTPUT: Intake yesterday was 1,615. Output yesterday was 1,550. Output this morning is already greater than 4 liters. Weight in the bed scale today is 103.4 kg. PHYSICAL EXAMINATION: GENERAL APPEARANCE: The patient is seen sitting in bed with the head of the bed elevated. He is an elderly male who appears older than stated age in no apparent distress. HEENT: There is chronic scarring and postsurgical changes of the left forehead and eye orbit. His tongue is moist. NECK: Supple. His jugular veins were difficult to assess. HEART: Irregular and mildly tachycardic. LUNGS: Bibasilar mild rales and diminished breath sounds at the bases. There is no tachypnea. No accessory muscle use. He is comfortable on room air. ABDOMEN: Soft and nontender. GENITOURINARY: New Leon catheter with urine in the bag. EXTREMITIES: 2+ leg edema that comes all the way up the hip and dependent areas. NEUROLOGICAL: He is awake, alert and at baseline mentation, oriented x3. PSYCHIATRIC: Appropriate mood and affect. LABORATORY STUDIES: Today's labs show sodium 136, potassium 4.3, bicarbonate 30, BUN 36, creatinine 2.8, hemoglobin 13.8, platelet count 196. Urinalysis shows 3+ leukocyte esterase and 1+ bacteria. IMAGING: Renal ultrasound showed moderate bilateral hydroureteronephrosis with distended urinary bladder. INPATIENT MEDICATIONS: Mirna sanchezip was discontinued. He is ordered for Ceftriaxone one gram IV daily. He is receiving a bolus of lactated Ringer's. The remainder medications are unchanged from prior. PROBLEMS: 1. Acute kidney injury on chronic kidney disease stage 3B - Baseline creatinine is in the low 1's. His initial acute kidney injury was related to obstructive uropathy. Unfortunately he had recurrent obstructive uropathy and bladder obstruction and his Leon was replaced with a gush of 2 liters of urine this morning. I suspect that he will now have a postobstructive diuresis (polyuria) and he is going to need a mild amount of replacement fluid, and his renal function should improve now that the obstruction was relieved. His diuretic is on hold, as I am sure that he will be polyuric after having a release of urinary obstruction. 2. Obstructive uropathy - The patient was obstructed despite having Leon catheter. The Leon catheter was replaced. He has ongoing hydronephrosis. He is on Flomax and Finasteride. I suspect he also has a urinary tract infection. His urinalysis is suspicious. I am starting him on Ceftriaxone while we await the urine culture. He will most likely need to be maintained with a Leon catheter until he follows up with Urology eventually as an outpatient. 3. Decompensated systolic congestive heart failure, left ventricular ejection fraction 35% - The patient is currently having a postobstructive diuresis. He has already made 4 liters of urine this morning. His diuretics are hence discontinued. His blood pressures are soft, systolic is in the 80's. He is asymptomatic. Because he is expected to vigorously diurese now that his obstruction has been relieved, he may actually need some mild maintenance fluids, and we will watch his urine output closely, and I have ordered a BMP for the evening. His oral fluid restriction is discontinued.
[2020-08-09] MEDS: NS 0.45% 1,000 ML IV SCH (18:06)
[2020-08-09] MEDS: FINASTERIDE 5 MG TAB PO SCH (20:23)
[2020-08-10] MEDS: AMIODARONE 200 MG TAB (PACERONE) PO SCH ×3 (05:48→17:19)
[2020-08-10 06:00] VITALS: BP 94/65
[2020-08-10 06:37] LABS: HEMATOCRIT 38.6 % (42.0-52.0); HEMOGLOBIN 12.1 g/dl (13.5-17.5); MEAN CORPUSCULAR HEMOGLOBIN 30.3 pg (27.0-33.0); MEAN CORPUSCULAR HGB CONC 31.3 g/dl (32.0-36.5); MEAN CORPUSCULAR VOLUME 96.5 fl (80.0-96.0); PLATELET COUNT, AUTOMATED 187 10^3/uL (150-450); WHITE BLOOD COUNT 5.8 10^3/uL (4.0-10.0)
[2020-08-10 07:14] LABS: CALCIUM LEVEL 8.1 MG/DL (8.8-10.2); CREATININE FOR GFR 2.42 MG/DL (0.70-1.30); DIGOXIN LEVEL 0.9 NG/ML (0.5-2.0); GLOMERULAR FILTRATION RATE 28.8 (>49); POTASSIUM SERUM 3.7 MEQ/L (3.5-5.1)
--- NOTE | 2020-08-10 07:29 | ECHO ---
DATE OF PROCEDURE: 08/08/2020 Age: 65 Gender: Male REFERRING PHYSICIAN: Dr. Go Lilly. PATIENT LOCATION: Room 4210. REASON FOR STUDY: Edema. 2D MEASUREMENTS: IVS 1.3 cm LV 4.7 cm LVPW 1.1 cm LA 4.1 cm Aorta 3.2 cm IVC 2.1 cm DOPPLER MEASUREMENT Peak velocity across the aortic valve 1.1 msec Peak velocity across the LVOT 0.8 msec Mitral E 0.96 Maximum tricuspid valve velocity 2.5 msec 2D COMMENTS: 1. Normal left ventricular size with probably mildly increased left ventricular wall thickness, but with a depressed global left ventricular systolic function. There was moderate global hypokinesis. The estimated left ventricular systolic ejection fraction is 35% to 40%. 2. Mildly dilated left atrium. The right atrium appeared to be moderately enlarged. The left ventricle appeared to be minimally enlarged in limited views. 3. The atrial septum appeared to be normal without evidence of defect or shunt. 4. Normal aortic root. 5. No pericardial effusion seen. 6. Mildly calcified aortic valve with normal leaflet excursion. Mildly calcified mitral annulus with normal anterior mitral valve leaflet motion. Normal tricuspid valve and pulmonic valve. The proximal pulmonary artery branches were not well visualized. 7. The inferior vena cava was dilated, central venous pressure might be elevated. Doppler detects mild aortic regurgitation, [id number] mitral regurgitation, moderate tricuspid regurgitation, and trace pulmonic regurgitation. The calculated pulmonary artery systolic pressure varies between 30 to 40 mmHg. Assessment of the left ventricular diastolic function was limited, patient seems to be in atrial fibrillation. IMPRESSION: 1. Moderate global left ventricular systolic dysfunction with diffuse hypokinesis. Assessment of the left ventricular diastolic function was limited. 2. Aortic valve sclerosis with mild aortic regurgitation, but no aortic stenosis. 3. Mitral annulus calcification with a mildly enlarged left atrium and [id number] mitral regurgitation. 4. Moderate tricuspid regurgitation with a dilated right atrium. Pulmonary artery systolic pressure was estimated between 30 to 35 mmHg consistent with mild pulmonary hypertension, but more severe pulmonary hypertension could not be ruled out. 5. Trace pulmonic regurgitation. 6. No pericardial effusion seen, but a left and right pleural effusion were noted. 7. This was compared with the most recent study on 04/30/2020, no remarkable changes. MTDD
[2020-08-10] MEDS: NYSTATIN 100,000 UNITS/GM TOPICAL PWD 15 GM TOP SCH (08:13)
[2020-08-10] MEDS: NS 0.45% 1,000 ML IV SCH (08:13)
[2020-08-10] MEDS: DIGOXIN 0.125 MG TAB PO SCH (08:13)
[2020-08-10] MEDS: SENOKOT S TAB PO SCH ×2 (08:13→20:44)
[2020-08-10] MEDS: APIXABAN 5 MG TAB (ELIQUIS) PO SCH ×2 (08:13→20:44)
[2020-08-10] MEDS: MULTIVITAMINS/MINERALS THERAP 1 TAB PO SCH (08:14)
[2020-08-10] MEDS: FOLIC ACID 1 MG TAB PO SCH (08:14)
[2020-08-10] MEDS: MIRALAX *UNIT DOSE* 17GM PACKET PO SCH ×2 (08:14→20:44)
[2020-08-10] MEDS: TAMSULOSIN 0.4 MG CAP PO SCH (08:14)
--- NOTE | 2020-08-10 09:20 | IPN ---
PROGRESS NOTE DATE: 08/10/2020 SUBJECTIVE: Dharmesh is seen one day after having an obstructive uropathy relieved by replacing his Leon catheter. He is having a postobstructive diuresis. He diuresed about 7 liters yesterday, is much more curtailed today. He feels dramatically improved. He denies weakness, chest pain or dizziness. PHYSICAL EXAMINATION: VITAL SIGNS: Blood pressure 94/65, pulse of 100, respiratory rate is 18, 96% O2 saturation. HEENT: Unchanged. LUNGS: Decreased breath sounds but clear. HEART: Regular rate and rhythm. ABDOMEN: Soft, nontender, no masses. No peripheral edema. LABORATORY DATA: White count is 5.8, hemoglobin 12.1, platelets 187,000, sodium 121, potassium 3.7, BUN 35, creatinine 2.4. IMPRESSION: 1. Acute urinary retention with obstructive uropathy which is resolved by replacing his Leon catheter. 2. Acute kidney injury superimposed on chronic kidney disease. Renal function is improved. Need to watch his fluid status as he received some IV fluids yesterday due to some hypotension. He has postobstructive diuresis occurring. 3. Severely decompensated congestive heart failure with reduced ejection fraction of about 35%. He is off his Lasix drip. We had to give him more fluids yesterday. Volume status is tenuous, needs daily evaluation. 4. Atrial fibrillation. He is back on Digoxin, his rate is under better control. Digoxin level was therapeutic today. I am repeating a Digoxin level in a few days. He got Digoxin toxic earlier in his hospitalization.
[2020-08-10 11:02] LABS: PTH INTACT 293.2 PG/ML (18.5-88.0)
[2020-08-10 12:37] LABS: TOTAL 25(OH) VITAMIN D 11.6 NG/ML (30.0-100.0)
[2020-08-10 14:00] VITALS: BP 87/56
[2020-08-10] MEDS: cefTRIAXone SOD 1 GM in D5W MINI-BAG PLUS 50 ML IV SCH (15:54)
[2020-08-10] MEDS: CALCITRIOL 0.25 MCG CAP (S0169) PO SCH (15:54)
--- NOTE | 2020-08-10 17:18 | IPN ---
INPATIENT PROGRESS NOTE DATE: 08/10/2020 SUBJECTIVE: Dharmesh is seen and examined this morning at the bedside. He has had a significant postobstructive polyuria with more than 9 liters of urine in the past 24 hours. He received partial replacement with the half normal saline which was discontinued this morning. His blood pressures have been stable, systolic mostly in the 80s-90s. He has been asymptomatic. He has been up and ambulating to the bathroom. He denies any dizziness. He denies shortness of breath. Renal function is improving. PHYSICAL EXAMINATION: Temperature 97.6, pulse 107, respiratory rate 18, blood pressure 94/65, saturating 97% on room air. Intake yesterday was not fully recorded because I do not see I.V. fluid in the intake. Oral intake was 2.2 liters. Urine output was 9.1 liters. Weight on the bed scale today is 102.8 kg. General: Patient is seen awake, alert lying in bed, head of the bed elevated, elderly male in no distress. HEENT: There is chronic scarring and post-surgical changes of the left forehead and eye orbit. Tongue is moist. Neck: Supple. Jugular veins are difficult to assess. Heart: Sounds were tachycardic S1 and S2. There is 2+ leg edema that is decreased from prior. Lungs: Sounds are symmetric and diminished at the base otherwise clear. There was no rales. There is no tachypneic or accessory muscle use. He is comfortable on room air. Abdomen: Soft and nontender. There is a Leon catheter present with urine in the bag which has a pink tinge. Extremities: Negative for clubbing or cyanosis. There is 2+ edema that comes up to about the mid-thigh and it is decreased from prior. Neurologic: He is awake, alert and oriented times 3, interactive and conversational. LABORATORY DATA: Sodium 141, potassium 3.7, bicarbonate 29, BUN 35, creatinine 2.4. Hemoglobin 12.1, platelets 187. Urine culture is pending. INPATIENT MEDICATIONS: his half normal saline is discontinued. He is on ceftriaxone 1 gram I.V. daily. His remainder of medications are unchanged as compared to yesterday. PROBLEMS/PLAN: 1. SPEEDY on CKD stage 3B: Baseline creatinine is in the low 1s. He has had recurrent acute kidney injury related to recurrent obstructive uropathy. He is now with postobstructive diuresis and more than 9 liters of urine output in the past 24 hours. His polyuria seems to be decreasing now. I have stopped the half normal saline, but there is no need for initiation of diuretic at this time. His renal function is improving now that the obstruction was relieved and we need to do regular bladder scans as his last obstruction occurred even with a Leon in place. 2. Obstructive uropathy: Patient will need regular bladder scans even with the Leon catheter to make sure that he does not again go into bladder obstruction. He has ongoing hydronephrosis. Presently there is a postobstructive diuresis. He is on Flomax, finasteride and oxybutynin. He will need to continue with a Leon catheter until he follows up with urology eventually as an outpatient. 3. UTI: Urinalysis was suspicious. Nursing staff reported foul smelling urine. Presently he has some mild gross hematuria. He is on ceftriaxone and urine culture is pending. 4. Decompensated systolic congestive heart failure, left ventricular ejection fraction 35%: Diuretic is on-hold as he is having a postobstructive diuresis. He did receive partial replacement with half normal saline yesterday as his blood pressures were soft with systolic in the 80s-90s, but this I.V. fluid has been stopped today and he has been in net negative balance. Diuretic will be resumed once his postobstructive diuresis levels off. He is presently not on a fluid restriction. 5. Atrial fibrillation: Heart rate is still tachycardic and variable from the 70s-110s. He is on amiodarone and digoxin and Eliquis anticoagulation. 6. Secondary hyperparathyroidism of renal origin: He will be started on calcitriol. Parathyroid hormone is 293.
[2020-08-10] MEDS: FINASTERIDE 5 MG TAB PO SCH (20:44)
[2020-08-10 22:00] VITALS: BP_SYST 84; BP_SYST 87; BP_DIAS 57; BP_DIAS 60
[2020-08-11] MEDS: AMIODARONE 200 MG TAB (PACERONE) PO SCH ×5 (00:42→23:11)
[2020-08-11 03:13] VITALS: O2SAT 97
[2020-08-11 06:00] VITALS: BP 92/59
[2020-08-11 06:00] LABS: HEMATOCRIT 40.2 % (42.0-52.0); MEAN CORPUSCULAR HEMOGLOBIN 31.3 pg (27.0-33.0); MEAN CORPUSCULAR HGB CONC 32.3 g/dl (32.0-36.5); MEAN CORPUSCULAR VOLUME 96.9 fl (80.0-96.0); PLATELET COUNT, AUTOMATED 212 10^3/uL (150-450); RED BLOOD COUNT 4.15 10^6/uL (4.30-6.10); WHITE BLOOD COUNT 5.7 10^3/uL (4.0-10.0)
[2020-08-11 07:03] LABS: CALCIUM LEVEL 7.6 MG/DL (8.8-10.2); CREATININE FOR GFR 1.77 MG/DL (0.70-1.30); GLOMERULAR FILTRATION RATE 41.3 (>49); MAGNESIUM LEVEL 1.8 MG/DL (1.8-2.4); POTASSIUM SERUM 3.5 MEQ/L (3.5-5.1)
[2020-08-11] MEDS: APIXABAN 5 MG TAB (ELIQUIS) PO SCH ×2 (08:38→20:59)
[2020-08-11] MEDS: SENOKOT S TAB PO SCH ×2 (08:38→20:54)
[2020-08-11] MEDS: MULTIVITAMINS/MINERALS THERAP 1 TAB PO SCH (08:38)
[2020-08-11] MEDS: TAMSULOSIN 0.4 MG CAP PO SCH (08:38)
[2020-08-11] MEDS: DIGOXIN 0.125 MG TAB PO SCH (08:38)
[2020-08-11] MEDS: VITAMIN D 1,000 INTERNATIONAL UNITS TABLET PO SCH (08:38)
[2020-08-11] MEDS: FOLIC ACID 1 MG TAB PO SCH (08:38)
[2020-08-11] MEDS: MIRALAX *UNIT DOSE* 17GM PACKET PO SCH ×2 (08:38→20:53)
[2020-08-11] MEDS: AMPICILLIN SOD 1 GM in D5W 50 ML IV SCH ×3 (10:05→21:00)
[2020-08-11] MEDS: NYSTATIN 100,000 UNITS/GM TOPICAL PWD 15 GM TOP SCH (10:05)
--- NOTE | 2020-08-11 10:31 | IPN ---
PROGRESS NOTE DATE: 08/11/2020 SUBJECTIVE: Dharmesh is feeling better. He is again experiencing a postobstructive diuresis. Blood pressure is a little low, which makes treating his atrial fibrillation challenging. We are relying on digoxin to control his heart rate and he was dig-toxic earlier in his hospitalization. Yesterday his digoxin level was good at 0.9. His urine culture grew out Enterococcus so we are changing him from Rocephin to ampicillin today. No chest pain, palpitations, fever, or chills. OBJECTIVE: VITAL SIGNS: Blood pressure 92/59; blood pressure was 84/60 last night. Pulse 110, respiratory rate 18, temperature 97.6 degrees. HEENT: Unchanged. NECK: No JVD. LUNGS: Decreased breath sounds. HEART: Regular rate and rhythm, tachycardia with 1/6 systolic ejection murmur. ABDOMEN: Soft and nontender with no masses. EXTREMITIES: Trace peripheral edema. LABORATORY DATA: CBC unchanged. Sodium 141, potassium 3.5, BUN 25, creatinine 1.7, glucose 117. IMPRESSION: 1. Obstructive uropathy with acute kidney injury superimposed on chronic kidney disease. Creatinine is improving on a daily basis. The obstruction was relieved by changing his Leon catheter. 2. Enterococcus urinary tract infection (UTI). Put him on intravenous (IV) ampicillin. Unfortunately, ampicillin has an oral formulation and is not available on formulary. We could use amoxicillin, but it does not have the same urinary concentration as ampicillin; so, we will use the IV ampicillin for a day or two and then, switch to amoxicillin. 3. Atrial fibrillation. His rate is elevated. We have to be cautious about using digoxin and his blood pressure precludes beta-justin or calcium-channel justin. 4. Decompensated congestive heart failure with reduced ejection fraction. His diuretics are on hold. He got a little volume contracted. Watch this closely. He could go back into heart failure easily. 5. Disposition. I expect he will probably be stable to discharge home or rehab by the end of the week, maybe on Monday at the earliest.
[2020-08-11] MEDS ORDERED: POTASSIUM CHLORIDE 10 MEQ SR TABLET PO ONE (11:15)
--- NOTE | 2020-08-11 12:30 | IPN ---
INPATIENT PROGRESS NOTE DATE: 08/11/20 SUBJECTIVE: The patient seen and examined this morning at the bedside, continues to be polyuric, but drank more than 4 liters of fluid yesterday. Denies any shortness of breath at rest, reports he is up and ambulating to the bathroom regularly. Denies dyspnea with simple exertion. Urine culture grew Enterococcus faecalis. His renal function is improving. PHYSICAL EXAMINATION: Vital signs: Temperature 97.6, pulse 110, respiratory rate 18, blood pressure 92/59, saturating 97% on room air. Intake yesterday was 4200, urine output yesterday was 6200, net negative 2 liters. Weight on the bed scale today is not recorded. General: Patient is seen awake, alert sitting in bed, head of the bed elevated in no apparent distress. HEENT: There is chronic scarring and post-surgical change of left forehead and left eye orbit. Tongue is moist. Neck: Supple. Jugular veins are not elevated. Heart: Sounds are tachycardic and irregular S1 and S2. There is ongoing 2+ leg edema bilaterally. Genitourinary: There is an indwelling Leon catheter. Lungs: Symmetric and diminished at the base otherwise clear. There is no tachypnea or accessory muscle use. He is comfortable on room air. Abdomen: Soft and nontender. Extremities: Negative for clubbing or cyanosis. There is leg edema as mentioned above and it is decreased. Neurologic: He is awake, alert, oriented times 3, interactive and conversational. LABORATORY DATA: Today's labs show sodium 141, potassium 3.5, BUN 25, creatinine 1.7, magnesium 1.8. Hemoglobin 13. Urine culture grew Enterococcus faecalis. INPATIENT MEDICATIONS: Ceftriaxone was discontinued and he was switched to ampicillin 1 gram I.V. q6h. His remainder of medications are unchanged with the exception of the addition of vitamin D 1000 units daily. PROBLEMS/PLAN: 1. SPEDEY on CKD stage 3B: His acute kidney injury is due to recurrent obstructive uropathy and hydroureteronephrosis. He is presently having a postobstructive diuresis. His renal function is improving nicely. His diuretics are on-hold. I have added fluid restriction as he drank more than 4 liters of fluid yesterday. 2. Obstructive uropathy: There was no suprapubic bladder fullness on exam today. Leon catheter is functional. He is in postobstructive diuresis. He is on Flomax, finasteride and oxybutynin. He will need to continue with the Leon catheter until he eventually follows up with urology as an outpatient. 3. Enterococcus faecalis complicated UTI with indwelling Leon catheter: Primary team has already switched him from ceftriaxone over to ampicillin. 4. Decompensated systolic congestive heart failure, left ventricular ejection fraction 35%: Diuretic is on-hold as he is having postobstructive diuresis. He continues to have peripheral edema. I have added fluid restriction back again today as he really drank a lot yesterday, more than 4 liters. We will resume diuretic once his postobstructive diuresis resolves. 5. Atrial fibrillation: Heart rate is still tachycardic and blood pressures have been borderline soft which limits medications that can be used. He is on amiodarone and digoxin managed by the primary service and he is anticoagulated with Eliquis. 6. Secondary hyperparathyroidism of renal origin: I started him on calcitriol along with vitamin D. 7. Hypokalemia: Potassium levels have been down trending secondary to the postobstructive diuresis and he is ordered for oral potassium supplementation.
[2020-08-11 14:00] VITALS: BP 92/62
[2020-08-11] MEDS: FINASTERIDE 5 MG TAB PO SCH (21:00)
[2020-08-11 22:00] VITALS: BP 102/65
[2020-08-12 00:42] VITALS: O2SAT 97
[2020-08-12] MEDS: AMPICILLIN SOD 1 GM in D5W 50 ML IV SCH ×4 (02:09→19:54)
[2020-08-12] MEDS: AMIODARONE 200 MG TAB (PACERONE) PO SCH ×4 (05:03→23:35)
[2020-08-12 06:00] VITALS: BP 112/60
[2020-08-12 06:21] LABS: HEMOGLOBIN 13.5 g/dl (13.5-17.5); MEAN CORPUSCULAR HEMOGLOBIN 31.8 pg (27.0-33.0); MEAN CORPUSCULAR HGB CONC 32.9 g/dl (32.0-36.5); MEAN CORPUSCULAR VOLUME 96.7 fl (80.0-96.0); PLATELET COUNT, AUTOMATED 210 10^3/uL (150-450); RED BLOOD COUNT 4.24 10^6/uL (4.30-6.10); WHITE BLOOD COUNT 5.5 10^3/uL (4.0-10.0)
[2020-08-12 06:49] LABS: CALCIUM LEVEL 7.8 MG/DL (8.8-10.2); CREATININE FOR GFR 1.36 MG/DL (0.70-1.30)
[2020-08-12] MEDS: NYSTATIN 100,000 UNITS/GM TOPICAL PWD 15 GM TOP SCH (09:00)
[2020-08-12] MEDS: MIRALAX *UNIT DOSE* 17GM PACKET PO SCH ×2 (09:41→19:44)
[2020-08-12] MEDS: MULTIVITAMINS/MINERALS THERAP 1 TAB PO SCH (09:43)
[2020-08-12] MEDS: SENOKOT S TAB PO SCH ×2 (09:43→19:44)
[2020-08-12] MEDS: TAMSULOSIN 0.4 MG CAP PO SCH (09:43)
[2020-08-12] MEDS: APIXABAN 5 MG TAB (ELIQUIS) PO SCH ×2 (09:43→19:52)
[2020-08-12] MEDS: VITAMIN D 1,000 INTERNATIONAL UNITS TABLET PO SCH (09:43)
[2020-08-12] MEDS: DIGOXIN 0.125 MG TAB PO SCH (09:43)
[2020-08-12] MEDS: FOLIC ACID 1 MG TAB PO SCH (09:43)
[2020-08-12 11:17] VITALS: O2SAT 97
--- NOTE | 2020-08-12 11:58 | IPN ---
PROGRESS NOTE DATE: 08/12/2020 SUBJECTIVE: Dharmesh is doing well. He continues to recover from his urinary obstruction. He continues with brisk diuresis. He put out almost 7 liters after his Leon catheter was replaced on 08/09/2020, put out 2 liters the next day, 3 liters yesterday and already 2 liters today. He is not hypotensive from this and his renal function continues to improve. I do not think he needs to be hydrated. Nephrology is following him and addressing his diuretics which are on hold as the patient is having a postobstructive diuresis. He has enterococcus faecalis UTI with indwelling Leon catheter. He is on IV Ampicillin for this. His vitamin D deficiency has been addressed by Nephrology. PHYSICAL EXAMINATION: VITAL SIGNS: Blood pressure 112/60, pulse of 100, respiratory rate 16, 96% O2 saturation. GENERAL: He is alert and conversant. LUNGS: Clear. HEART: Regular rate and rhythm. ABDOMEN: Soft, nontender. No suprapubic tenderness. EXTREMITIES: No peripheral edema. LABORATORY DATA: BUN 19, creatinine 1.3, potassium is 4, white count 5.5, hemoglobin is 13.5, platelets 210,000. IMPRESSION: 1. Congestive heart failure with reduced ejection fraction. Patient is off his diuretics as he has a postobstructive diuresis going on and has daily labs ordered for this. He is currently off his diuretics. 2. Enterococcal UTI. He is on ampicillin intravenously, can be transitioned to oral Amoxicillin at some point. Oral ampicillin will be preferred but not on formulary. 3. Atrial fibrillation, his rate is under control. His blood pressure has prevented us from using a beta justin. We have to watch his Digoxin level closely as he has been Digoxin toxic during this admission. I have a Digoxin level ordered for later this weekend. He is anticoagulated with Eliquis. 4. Acute kidney injury superimposed on chronic kidney disease. Renal function is improves on a daily basis with relief of the obstruction. 5. Vitamin D deficiency secondary to hyperparathyroidism, being addressed by Nephrology. I expect he will be stable for either discharge home or preferably a stint in rehab by the end of the week.
--- NOTE | 2020-08-12 13:16 | IPN ---
INPATIENT PROGRESS NOTE DATE: 08/12/2020 SUBJECTIVE: Dharmesh is seen and examined this morning at the bedside. Denies any overnight events or complaints, continues to be polyuric. Renal function continues to improve. Denies any shortness of breath. Reports that he has been up and ambulating to the bathroom. Denies dyspnea with exertion. PHYSICAL EXAMINATION: Vital signs: Temperature 98.2, pulse 110, respiratory rate 17, blood pressure 112/60, saturating 96-97% on room air. Intake yesterday was 2.5 liters, urine output yesterday was 5.5 liters, net negative 3 liters. Weight on the bed scale today was 102.5 kg. General: Patient is seen sitting in bed awake, alert, oriented in no apparent distress. HEENT: Chronic post-surgical changes and scarring of left forehead and left eye orbit. Tongue is moist. Neck: Supple. Jugular veins were not elevated. Heart: Sounds are tachycardic and irregular. There is only 1+ leg edema now mostly around the ankles and comes up to mid-farr. It is much improved from prior. Abdomen: Soft and nontender. There are bowel sounds. There is a Leon catheter in place. The bladder is not distended and not palpable. Neurologic: He is oriented times 3, interactive and at baseline mentation. Lungs: Show symmetric air entry bilaterally. Clear to auscultation. LABORATORY DATA: White count 5.5, hemoglobin 13.5, platelets 210. Sodium 141, potassium 4, bicarbonate 30, BUN 19, creatinine 1.3, magnesium 1.8. INPATIENT MEDICATIONS: Reviewed by myself. He continues on I.V. ampicillin which was started yesterday and the remainder of his medications are unchanged over the past 24 hours. PROBLEMS/PLAN: 1. SPEEDY on CKD stage 3B: It is due to recurrent obstructive uropathy and hydroureteronephrosis. He continues with postobstructive diuresis and Leon catheter. His renal function has improved towards baseline. His diuretics remain on-hold as he is polyuric. Continue oral fluid restriction. His volume status is much improved. 2. obstructive uropathy: There is no suprapubic bladder fullness on exam today, Leon catheter is functional. He has postobstructive diuresis with 5.5 liters of urine output in the past 24 hours. He is on Flomax, finasteride and oxybutynin. He will need to continue with Leon catheter until eventual outpatient urology follow up. 3. Enterococcal faecalis complicated UTI with indwelling Leon catheter: Primary team is managing his antibiotic. 4. Systolic congestive heart failure, left ventricular ejection fraction 35%: Patient is having postobstructive diuresis, continue to hold all diuretics. His leg edema is dramatically better today since he has been on a fluid restriction. I would continue to hold his diuretic until his postobstructive diuresis resolves. 5. Atrial fibrillation: Heart rate has been 90s-110s. He continues on amiodarone and digoxin managed by the primary service and is anticoagulated with Eliquis. 6. Secondary hyperparathyroidism of renal origin: The patient continues on calcitriol and vitamin D.
[2020-08-12 14:00] VITALS: BP 108/65
[2020-08-12 19:55] VITALS: O2SAT 98
[2020-08-12] MEDS: FINASTERIDE 5 MG TAB PO SCH (19:55)
[2020-08-12 22:00] VITALS: BP 105/64
[2020-08-13] MEDS: AMPICILLIN SOD 1 GM in D5W 50 ML IV SCH ×4 (02:48→20:33)
[2020-08-13 06:00] VITALS: BP 110/74
[2020-08-13] MEDS: AMIODARONE 200 MG TAB (PACERONE) PO SCH ×3 (06:01→17:24)
[2020-08-13 06:27] LABS: HEMOGLOBIN 13.4 g/dl (13.5-17.5); MEAN CORPUSCULAR HEMOGLOBIN 31.5 pg (27.0-33.0); MEAN CORPUSCULAR HGB CONC 32.7 g/dl (32.0-36.5); MEAN CORPUSCULAR VOLUME 96.2 fl (80.0-96.0); PLATELET COUNT, AUTOMATED 208 10^3/uL (150-450); RED BLOOD COUNT 4.26 10^6/uL (4.30-6.10); WHITE BLOOD COUNT 5.4 10^3/uL (4.0-10.0)
[2020-08-13 07:16] LABS: BLOOD UREA NITROGEN 15 MG/DL (7-18); CARBON DIOXIDE LEVEL 28 MEQ/L (21-32); CHLORIDE LEVEL 104 MEQ/L (98-107); CREATININE FOR GFR 1.14 MG/DL (0.70-1.30); DIGOXIN LEVEL 0.8 NG/ML (0.5-2.0); GLOMERULAR FILTRATION RATE > 60.0 (>49); GLUCOSE, FASTING 85 MG/DL (70-100); POTASSIUM SERUM 3.7 MEQ/L (3.5-5.1); SODIUM LEVEL 136 MEQ/L (136-145)
[2020-08-13] MEDS: SENOKOT S TAB PO SCH ×2 (08:35→20:22)
[2020-08-13] MEDS: CALCITRIOL 0.25 MCG CAP (S0169) PO SCH (08:35)
[2020-08-13] MEDS: DIGOXIN 0.125 MG TAB PO SCH (08:36)
[2020-08-13] MEDS: TAMSULOSIN 0.4 MG CAP PO SCH (08:36)
[2020-08-13] MEDS: FOLIC ACID 1 MG TAB PO SCH (08:36)
[2020-08-13] MEDS: MIRALAX *UNIT DOSE* 17GM PACKET PO SCH ×2 (08:36→20:22)
[2020-08-13] MEDS: VITAMIN D 1,000 INTERNATIONAL UNITS TABLET PO SCH (08:36)
[2020-08-13] MEDS: MULTIVITAMINS/MINERALS THERAP 1 TAB PO SCH (08:36)
[2020-08-13] MEDS: APIXABAN 5 MG TAB (ELIQUIS) PO SCH ×2 (08:36→20:33)
[2020-08-13] MEDS: NYSTATIN 100,000 UNITS/GM TOPICAL PWD 15 GM TOP SCH (08:37)
[2020-08-13 12:42] VITALS: O2SAT 97
--- NOTE | 2020-08-13 13:02 | IPN ---
PROGRESS NOTE DATE: 08/13/2020 SUBJECTIVE: Dharmesh is seen and examined this morning at the bedside. He denies any overnight events or complaints. He continues to be polyuric. Renal function has recovered to baseline. Diuretics remain on hold. He denies any shortness of breath. He has been up and ambulating. Denies any dizziness or lightheadedness. PHYSICAL EXAMINATION: VITAL SIGNS: Temperature is 97.7, pulse is 93, respiratory rate is 18, blood pressure is 110/74, saturating 96% on room air. INTAKE AND OUTPUT: Intake yesterday was 1550, urine output yesterday was 450, net negative 3 liters. Weight on the bed scale today was 95.5 kg. GENERAL: The patient is seen awake, alert, oriented in no apparent distress. HEENT: There are chronic postsurgical changes and scarring of the left forehead and left eye orbit. The right eye is intact. Tongue is moist. NECK: Supple. Jugular veins are not elevated. HEART: Heart sounds are tachycardic and irregular. Heart rate is 90 to 110. There is only ankle edema now. His remainder of edema has resolved. ABDOMEN: Soft and nontender. There are bowel sounds. There is a Leon catheter in place. The bladder is not palpable. NEUROLOGIC: He is oriented x3, interactive and at baseline mentation. LUNGS: Symmetric and clear air entry. LABORATORY DATA: White count 5.4, hemoglobin 13.4, platelets 208,000, sodium 136,000, potassium 3.7, bicarbonate 28, BUN 15, creatinine 1.1. INPATIENT MEDICATIONS: He continues on IV Ampicillin 1 gram IV q. 6 hourly and there are no medication changes noted in the past 48 hours. PROBLEMS: 1. SPEEDY on CKD. Renal function has recovered to baseline. His SPEEDY was related to obstructive uropathy and bilateral hydroureteronephrosis. His postobstructive diuresis is resolving. He remains with Leon catheter. I am continuing to hold his diuretic. His oral fluid restriction is 2 liters. 2. Obstructive uropathy with Leon catheter and still having some postobstructive diuresis although the daily urine output is decreasing and he is on Flomax, Finasteride and Oxybutynin. He will eventually be discharged with a Leon catheter and will need to follow-up as an outpatient with Urology. 3. Complicated enterococcal faecalis associated with indwelling Leon catheter. Antibiotics were managed as per primary team. 4. Systolic congestive heart failure, left ventricular ejection fraction 35%. His volume status is now compensated. The exacerbation has resolved with postobstructive diuresis. Continue to hold all diuretics. He now only has ankle edema. His fluid restriction is 2 liters daily. 5. Atrial fibrillation, heart rate has been in the 90s to 110s, he continues on amiodarone and Digoxin, managed by the primary service and is anticoagulated with Eliquis. 6. Secondary hyperparathyroidism of renal origin with vitamin D deficiency. He continues on low dose Calcitriol every third day along with vitamin D supplementation. His corrected calcium is acceptable.
[2020-08-13] MEDS: FINASTERIDE 5 MG TAB PO SCH (20:33)
[2020-08-13 22:00] VITALS: BP 105/69
--- NOTE | 2020-08-13 22:33 | IPNPDOC ---
Subjective Date Seen The patient was seen on 08/13/20. Subjective Chief Complaint/HPI Mr. Tovar is a 65 -year-old female here with atrial fibrillation with RVR and acute systolic decompensated CHF. This morning he denied any dyspnea or chest pain. His heart rate was still elevated around 111. Patient denies following with a assistant commissioner, the patient is on amiodarone and digoxin. Blood pressure is soft, may not be able to tolerate beta justin. Consulted cardiology, Dr. russo. Objective Physical Examination General Exam: Positive: Alert, Cooperative Eye Exam: Positive: EOMI; Negative: Sclera icteric ENT Exam: Positive: Atraumatic Neck Exam: Positive: Supple Heart Exam: Positive: Tachycardic, Irregular Rhythm Abdomen Exam: Positive: Normal bowel sounds, Soft; Negative: Tenderness Extremity Exam: Positive: Edema Neuro Exam: Positive: Normal Speech Assessment /Plan Assessment Mr. Tovar is a 65 -year-old female here with atrial fibrillation with RVR and acute systolic decompensated CHF. Patient is now compensated, but still in rapid ventricular rate. Blood pressure is soft, may not be able to tolerate beta justin. Patient does not follow cardiology, but he is on amiodarone and digox in. Consulted cardiology, recommendations appreciated Plan/VTE VTE Prophylaxis Ordered?: Yes Plan 1. Atrial flutter/atrial fib with rapid ventricular response Not yet controlled On amiodarone and digoxin May not be able tolerate beta blockers due to low blood pressures Cardiology consulted recommendations appreciated Anticoagulation with Eliquis 2. Acute decompensated systolic CHF Echocardiogram performed on 08/08/2020 EF of 35% to 40% Resolved, now compensated Nephrology following recommendations appreciated Holding diuretics, fluid rejection 2 L 3. Acute kidney injury on chronic kidney disease Nephrology following recommendations appreciated Patient had obstructive uropathy and bilateral hydroureteronephrosis Leon catheter placed Acute kidney injury resolved 4. Catheter associated 8. Tract infection Patient has enterococcus faecalis and urine culture On ampicillin 5. DVT prophylaxis -On Eliquis Disposition: Pending rate control. Patient may need to follow outpatient for Leon catheter. VS, I&O, 24H, Fishbone Vital Signs/I&O Vital Signs Date Time Temp Pulse Resp B/P (MAP) Pulse Ox O2 Delivery O2 Flow Rate FiO2 08/13/20 12:42 97 Room Air 08/13/20 08:36 109 08/13/20 06:00 97.7 18 110/74 (86) I&O- Last 24 Hours up to 6 AM 08/13/20 05:59 Intake Total 1910 ml Output Total 5500 ml Balance -3590 ml Laboratory Data 24H LABS Laboratory Tests 2 08/13/20 06:01: Nucleated Red Blood Cells % (auto) 0.0, Anion Gap 4L, Glomerular Filtration Rate > 60.0, Calcium Level 8.0L, Digoxin Level 0.8 CBC/BMP Laboratory Tests 08/13/20 06:01 Microbiology Microbiology 08/09/20 Urine Culture - Final, Complete Enterococcus Faecalis DAGMAR PITTMAN DO Aug 13, 2020 22:33
[2020-08-14] MEDS: AMIODARONE 200 MG TAB (PACERONE) PO SCH ×4 (00:13→17:00)
[2020-08-14] MEDS: AMPICILLIN SOD 1 GM in D5W 50 ML IV SCH ×4 (03:43→19:55)
[2020-08-14 05:23] VITALS: O2SAT 96
[2020-08-14 06:00] VITALS: BP 111/73
[2020-08-14 06:53] LABS: HEMATOCRIT 41.1 % (42.0-52.0); HEMOGLOBIN 13.3 g/dl (13.5-17.5); MEAN CORPUSCULAR HEMOGLOBIN 30.8 pg (27.0-33.0); MEAN CORPUSCULAR HGB CONC 32.4 g/dl (32.0-36.5); MEAN CORPUSCULAR VOLUME 95.1 fl (80.0-96.0); PLATELET COUNT, AUTOMATED 206 10^3/uL (150-450); RED BLOOD COUNT 4.32 10^6/uL (4.30-6.10); WHITE BLOOD COUNT 5.6 10^3/uL (4.0-10.0)
[2020-08-14 07:22] LABS: BLOOD UREA NITROGEN 18 MG/DL (7-18); CALCIUM LEVEL 7.9 MG/DL (8.8-10.2); CARBON DIOXIDE LEVEL 27 MEQ/L (21-32); CHLORIDE LEVEL 107 MEQ/L (98-107); CREATININE FOR GFR 1.13 MG/DL (0.70-1.30); GLOMERULAR FILTRATION RATE > 60.0 (>49); GLUCOSE, FASTING 84 MG/DL (70-100); POTASSIUM SERUM 4.1 MEQ/L (3.5-5.1); SODIUM LEVEL 139 MEQ/L (136-145)
[2020-08-14] MEDS: MIRALAX *UNIT DOSE* 17GM PACKET PO SCH ×2 (09:00→19:51)
[2020-08-14] MEDS: SENOKOT S TAB PO SCH ×2 (09:00→19:51)
[2020-08-14] MEDS: NYSTATIN 100,000 UNITS/GM TOPICAL PWD 15 GM TOP SCH (09:00)
[2020-08-14] MEDS: VITAMIN D 1,000 INTERNATIONAL UNITS TABLET PO SCH (09:25)
[2020-08-14] MEDS: APIXABAN 5 MG TAB (ELIQUIS) PO SCH ×2 (09:26→19:56)
[2020-08-14] MEDS: MULTIVITAMINS/MINERALS THERAP 1 TAB PO SCH (09:26)
[2020-08-14] MEDS: TAMSULOSIN 0.4 MG CAP PO SCH (09:26)
[2020-08-14] MEDS: FOLIC ACID 1 MG TAB PO SCH (09:26)
[2020-08-14] MEDS: DIGOXIN 0.125 MG TAB PO SCH (09:26)
--- NOTE | 2020-08-14 13:13 | IPN ---
INPATIENT PROGRESS NOTE DATE: 08/14/20 SUBJECTIVE: Patient seen and examined this morning at the bedside. Denies any overnight events or complaints, no shortness of breath. Renal function remains stable at baseline. He is not requiring any diuretics. He is auto-diuresing and in negative daily fluid balance. He is still tachycardic. PHYSICAL EXAMINATION: Vital signs: Temperature 98, pulse 96-115, respiratory rate 18, blood pressure 111/73, saturating 97% on room air. Intake yesterday was 2.1 liters, urine output was 4.4 liters, net negative 2.3 liters. Weight on the bed scale today is 94.3 kg. General: Patient is seen awake, alert, oriented, sitting in bed, head of the bed elevated, in no apparent distress. HEENT: Chronic post-surgical changes are noted of the left forehead and left eye orbit. Right eye is intact. Tongue is moist. Neck: Supple. Jugular veins are not elevated. Heart: Sounds are tachycardic and irregular. Heart rate is 90-110. There is ankle edema 1+ bilaterally. The remainder of his edema has resolved. Abdomen: Soft and nontender. There are bowel sounds. There is a Leon catheter present. The bladder is not palpable. Neurologic: He is oriented times 3, interactive and at baseline mentation. Lungs: Symmetric air entry and clear. LABORATORY DATA: White count 5.6, hemoglobin 13.3, platelets 206. Sodium 139, potassium 4.1, bicarbonate 27, BUN 18, creatinine 1.1. INPATIENT MEDICATIONS: Reviewed by myself and no changes are noted as compared to the past 2 days. PROBLEMS/PLAN: 1. Obstructive uropathy with bilateral hydroureteronephrosis: Patient went into recurrent obstruction on this admission and presently has a Leon catheter and is still having postobstructive diuresis. His renal function has recovered to baseline. His SPEEDY is resolved. His diuretic continues to be held (at home was taking Lasix 20 mg daily). He continues on Flomax, finasteride and oxybutynin. He will eventually be discharged with Leon catheter and will need to follow up as an outpatient with urology. 2. CKD stage 2: Renal function is at baseline. Electrolytes are acceptable. Lasix diuretic is on-hold. Patient is still polyuric from postobstructive diuresis. 3. Systolic congestive heart failure: Compensated. Left ventricular ejection fraction 35%. His exacerbation has resolved with relief of his bladder outlet obstruction and with subsequent postobstructive diuresis. Continue to hold Lasix. Continue 2 liter fluid restriction. 4. Atrial fibrillation: Heart rate is in the 90s-110s. He is on amiodarone and digoxin and anticoagulated with Eliquis. Primary team has also consulted cardiology for further rate control input. 5. Secondary hyperparathyroidism of renal origin along with vitamin D deficiency: He is on low dose calcitriol twice per week and vitamin D supplementation. 6. Disposition: From a nephrology point of view the patient is stable and I feel that he can be discharged without any diuretic and he would need to follow up with urology for his recurrent obstruction and also can follow up in the nephrology office.
[2020-08-14 14:00] VITALS: BP 93/57
[2020-08-14 14:02] VITALS: BP 108/74
[2020-08-14] MEDS: FINASTERIDE 5 MG TAB PO SCH (19:55)
--- NOTE | 2020-08-14 20:39 | IPNPDOC ---
Date Seen The patient was seen on 08/14/20. Progress Note SUBJECTIVE: Comfortable in bed, no new complaints. PHYSICAL EXAMINATION: VITAL SIGNS: Please see below. GENERAL: No distress HEENT: Normocephalic, atraumatic, moist mucous membranes NECK: Supple CARDIOVASCULAR EXAMINATION: Irregularly Irregular RESPIRATORY EXAMINATION: Basilar rhonchi, no wheezing ABDOMINAL EXAMINATION: Soft, nontender, nondistended, positive bowel sounds EXTREMITIES: +edema SKIN: No rash NEUROLOGICAL EXAMINATION: Alert and oriented 3, no focal deficits PSYCHIATRIC EXAMINATION: Calm and cooperative LABORATORY DATA, IMAGING STUDIES, MICROBIOLOGY: Please see below. ASSESSMENT AND PLAN: 65-year-old female is admitted for A. fib with RVR, CHF exacerbation and acute kidney injury. Based on the sequence of events it looks like patient had acute kidney injury secondary to urinary obstruction leading to decreased urine output and subsequent congestive heart failure exacerbation causing atrial fibrillation with rapid ventricular rate. PROBLEMS: 1. Acute kidney injury. Secondary to obstruction, status post Leon placement, renal function back to baseline. Nephrology following 2. CHF exacerbation/A. fib with RVR. Good urine output secondary to post-ATN diuresis, not requiring diuretics. On amiodarone, digoxin for rate control, remains tachycardic. On Eliquis for anticoagulation. Cardiology eval pending 3. UTI. Cultures grew Enterococcus faecalis. On ampicillin DVT prophylaxis: on Eliquis VS, I&O, 24H, Fishbone Vital Signs/I&O Vital Signs Date Time Temp Pulse Resp B/P (MAP) Pulse Ox O2 Delivery O2 Flow Rate FiO2 08/14/20 14:02 108/74 (85) 08/14/20 14:00 97.8 102 19 96 Room Air I&O- Last 24 Hours up to 6 AM 08/14/20 06:00 Intake Total 2120 ml Output Total 4200 ml Balance -2080 ml Laboratory Data 24H LABS Laboratory Tests 2 08/14/20 06:40: Nucleated Red Blood Cells % (auto) 0.0, Anion Gap 5L, Glomerular Filtration Rate > 60.0, Calcium Level 7.9L CBC/BMP Laboratory Tests 08/14/20 06:40 Microbiology Microbiology 08/09/20 Urine Culture - Final, Complete Enterococcus Faecalis VIN DENT MD Aug 14, 2020 20:39
[2020-08-14 22:00] VITALS: BP 102/64
[2020-08-15] MEDS: AMIODARONE 200 MG TAB (PACERONE) PO SCH ×4 (00:14→17:07)
[2020-08-15] MEDS: AMPICILLIN SOD 1 GM in D5W 50 ML IV SCH (02:14)
[2020-08-15 05:48] VITALS: BP 100/61
[2020-08-15] MEDS ORDERED: LevoFLOXacin 750 MG TABLET PO SCH (06:00)
[2020-08-15 07:06] LABS: HEMATOCRIT 41.9 % (42.0-52.0); HEMOGLOBIN 13.6 g/dl (13.5-17.5); MEAN CORPUSCULAR HEMOGLOBIN 31.1 pg (27.0-33.0); MEAN CORPUSCULAR HGB CONC 32.5 g/dl (32.0-36.5); MEAN CORPUSCULAR VOLUME 95.7 fl (80.0-96.0); PLATELET COUNT, AUTOMATED 207 10^3/uL (150-450); RED BLOOD COUNT 4.38 10^6/uL (4.30-6.10); WHITE BLOOD COUNT 6.6 10^3/uL (4.0-10.0)
[2020-08-15 07:24] LABS: BLOOD UREA NITROGEN 18 MG/DL (7-18); CALCIUM LEVEL 8.2 MG/DL (8.8-10.2); CARBON DIOXIDE LEVEL 28 MEQ/L (21-32); CHLORIDE LEVEL 108 MEQ/L (98-107); CREATININE FOR GFR 1.05 MG/DL (0.70-1.30); GLOMERULAR FILTRATION RATE > 60.0 (>49); GLUCOSE, FASTING 86 MG/DL (70-100); MAGNESIUM LEVEL 1.8 MG/DL (1.8-2.4); PHOSPHORUS LEVEL 2.7 MG/DL (2.5-4.9); SODIUM LEVEL 139 MEQ/L (136-145)
[2020-08-15] MEDS ORDERED: CARVedilol 3.125 MG TAB PO ONE (09:15)
[2020-08-15] MEDS ORDERED: bisoproloL fumarate 5 MG TAB PO ONE (09:30)
[2020-08-15] MEDS: MIRALAX *UNIT DOSE* 17GM PACKET PO SCH (10:08)
[2020-08-15] MEDS: SENOKOT S TAB PO SCH (10:08)
[2020-08-15] MEDS: VITAMIN D 1,000 INTERNATIONAL UNITS TABLET PO SCH (10:09)
[2020-08-15] MEDS: APIXABAN 5 MG TAB (ELIQUIS) PO SCH (10:09)
[2020-08-15] MEDS: FOLIC ACID 1 MG TAB PO SCH (10:09)
[2020-08-15] MEDS: DIGOXIN 0.125 MG TAB PO SCH (10:09)
[2020-08-15] MEDS: MULTIVITAMINS/MINERALS THERAP 1 TAB PO SCH (10:09)
[2020-08-15 10:11] VITALS: BP 101/63
[2020-08-15] MEDS: NYSTATIN 100,000 UNITS/GM TOPICAL PWD 15 GM TOP SCH (10:12)
[2020-08-15] MEDS: TAMSULOSIN 0.4 MG CAP PO SCH (10:12)
--- NOTE | 2020-08-15 11:13 | ECGEPIP ---
[facility] Test Date: 2020-08-13 Pat Name: CROW MURRAY Department: Room: [place] [address] Gender: Male Registration Manager: : [id number] Requested By: DAGMAR Rendon Order Number: [id number] Reading MD: Jorge Mijares Measurements Intervals [place] Rate: 111 P: [place]: 0 QRS: 26 QRSD: 94 T: 22 QT: 334 QTc: 455 Interpretive Statements Underlying atrial tachycardia versus slow atrial flutter with rapid ventricular r response. Somewhat low voltages. Nonspecific ST/T wave abnormalities No significant change from 08/04/20 Electronically Signed on 08-15-2020 11:13:01 EST by Jorge Mijares
[2020-08-15] MEDS ORDERED: DIGO0.123 PO (12:07)
[2020-08-15] MEDS ORDERED: FINA5TAB2 PO (12:07)
[2020-08-15] MEDS ORDERED: AMIO200T3 PO (12:07)
[2020-08-15] MEDS ORDERED: LEVO750T13 PO (12:07)
[2020-08-15 14:00] VITALS: BP 112/67
[2020-08-15] MEDS ORDERED: CARVedilol 3.125 MG TAB PO SCH (21:00)
[2020-08-15] MEDS ORDERED: bisoproloL fumarate 5 MG TAB PO SCH (21:00)
--- NOTE | 2020-08-15 22:14 | DS.PDOC ---
Discharge Summary General Date of Admission Jul 28, 2020 at 21:09 Date of Discharge 08/15/20 Attending Physician: VIN DENT MD Discharge Summary PROCEDURES PERFORMED DURING STAY: None. ADMITTING DIAGNOSES: 1. Acute kidney injury, obstructive uropathy, congestive heart failure, atrial fibrillation with rapid ventricular response. DISCHARGE DIAGNOSES: 1. As above. COMPLICATIONS/CHIEF COMPLAINT: Atrial Fibrillation With Rvr/Chf. HISTORY OF PRESENT ILLNESS: 65-year-old male with multiple medical comorbidities, was admitted for acute kidney injury secondary to obstructive uropathy, congestive heart failure, atrial fibrillation with rapid ventricular response. Patient was treated with Leon placement and subsequent resolution of acute kidney injury. Patient had significant self diuresis due to post-ATN diuresis. Patient has significant improvement in congestive heart failure and atrial fibrillation and is back to his baseline at this time. Patient slightly tachycardic over the last few days, bisoprolol started today with improvement in rate control. Patient is now completed back to baseline, without any complaints today, requesting to go home. Patient is advised to follow with cardiology, urology, nephrology and PCP after discharge, he is agreeable. HOSPITAL COURSE: As above. DISCHARGE MEDICATIONS: Please see below. ALLERGIES: Please see below. PHYSICAL EXAMINATION: VITAL SIGNS: Please see below. GENERAL: No distress HEENT: Normocephalic, atraumatic, moist mucous membranes NECK: Supple CARDIOVASCULAR EXAMINATION: , Irregularly irregular RESPIRATORY EXAMINATION: Basilar rhonchi, no wheezing ABDOMINAL EXAMINATION: Soft, nontender, nondistended, positive bowel sounds EXTREMITIES: Trace edema SKIN: No rash NEUROLOGICAL EXAMINATION: Alert and oriented 3, no focal deficits PSYCHIATRIC EXAMINATION: Calm and cooperative LABORATORY DATA: Please see below. PROGNOSIS: Fair ACTIVITY: As tolerated. DIET: Cardiac with fluid restriction of 1500 mL per day DISCHARGE PLAN: Follow-up with urology, cardiology, nephrology and PCP in 1-2 weeks DISPOSITION: 01 Home, Self-Care. DISCHARGE INSTRUCTIONS: 1. As above. DISCHARGE CONDITION: Stable. TIME SPENT ON DISCHARGE: Greater than [30] minutes. Vital Signs/I&Os Vital Signs Date Time Temp Pulse Resp B/P (MAP) Pulse Ox O2 Delivery O2 Flow Rate FiO2 08/15/20 14:00 98.5 82 18 112/67 (82) 97 Room Air I&O- Last 24 Hours up to 6 AM 08/15/20 06:00 Intake Total 1550 ml Output Total 3850 ml Balance -2300 ml Laboratory Data Labs 24H Laboratory Tests 2 08/15/20 06:41: Nucleated Red Blood Cells % (auto) 0.0, Anion Gap 3L, Glomerular Filtration Rate > 60.0, Calcium Level 8.2L, Phosphorus Level 2.7, Magnesium Level 1.8 CBC/BMP Laboratory Tests 08/15/20 06:41 Microbiology Microbiology 08/09/20 Urine Culture - Final, Complete Enterococcus Faecalis Discharge Medications Scheduled Amiodarone HCl (Amiodarone HCl) 200 Mg Tablet, 200 MG PO Q6H Apixaban (Eliquis) 5 Mg Tablet, 5 MG PO BID, (Reported) Bisoprolol Fumarate (Bisoprolol Fumarate) 5 Mg Tablet, 5 MG PO BID, (Reported) Digoxin (Digoxin) 250 Mcg Tablet, 250 MCG PO DAILY, (Reported) Digoxin (Digoxin) 125 Mcg Tablet, 0.125 MG PO DAILY Finasteride (Finasteride) 5 Mg Tablet, 5 MG PO QHS Furosemide (Furosemide) 20 Mg Tablet, 20 MG PO DAILY, (Reported) Levofloxacin (Levofloxacin) 750 Mg Tablet, 750 MG PO DAILY@06 Potassium Chloride (Potassium Chloride) 10 Meq Capsule.er, 10 MEQ PO DAILY, (Reported) Tamsulosin HCl (Flomax) 0.4 Mg Capsule, 0.4 MG PO DAILY, (Reported) Allergies Coded Allergies: No Known Allergies (Unverified , 12/05/18) VIN DENT MD Aug 15, 2020 22:14
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
== END 2020-08-15 17:55 | disposition home health service (06) | DRG 308 ==
LOC: M ED 16:44 → EDBD 16:44 → M ED INP 21:09 → M PCU 07-29 17:45 → M MSPAV 08-03 17:15
PROVIDERS: ADMIT Internal Medicine; ATTEND Internal Medicine
DX: I48.91 Unspecified atrial fibrillation (principal); I50.23 Acute on chronic systolic (congestive) heart failure; E87.2 Acidosis; N17.9 Acute kidney failure, unspecified; N13.30 Unspecified hydronephrosis; N25.81 Secondary hyperparathyroidism of renal origin; T83.511A Infection and inflammatory reaction due to indwelling urethral catheter, initial encounter; N39.0 Urinary tract infection, site not specified; N18.32 Chronic kidney disease, stage 3b; F10.10 Alcohol abuse, uncomplicated; D69.59 Other secondary thrombocytopenia; I27.20 Pulmonary hypertension, unspecified; Z79.899 Other long term (current) drug therapy; E66.9 Obesity, unspecified; R13.10 Dysphagia, unspecified; Z68.31 Body mass index [BMI] 31.0-31.9, adult; E87.6 Hypokalemia; Z79.01 Long term (current) use of anticoagulants; Z85.01 Personal history of malignant neoplasm of esophagus; N40.0 Benign prostatic hyperplasia without lower urinary tract symptoms; E83.51 Hypocalcemia; R31.9 Hematuria, unspecified; E55.9 Vitamin D deficiency, unspecified; Y84.6 Urinary catheterization as the cause of abnormal reaction of the patient, or of later complication, without mention of misadventure at the time of the procedure

== ENCOUNTER → 2020-09-04 | Outpatient (CLI) | payer MEDICARE ==
[~2020-09-04] MED LIST changes: -AMIT25TA PO; +AMIT25TA17 PO; +DIGO0.123 PO; +FINA5TAB2 PO; +FURO20TA2 PO; +LEVO750T13 PO; +POTA10CA32 PO
--- NOTE | 2020-09-04 08:10 | REP ---
INDICATION: N13.30 HYDRONEPHROSIS COMPARISON: 08/09/2020 TECHNIQUE: Real time babin scale ultrasound examination using curved array transducer. FINDINGS: Bilateral kidneys are normal in contour, size, echogenicity, and reniform shape without hydronephrosis, nephrolithiasis, or renal mass lesion. Right kidney measures 10.1 x 5.8 x 4.6 cm and includes 1.4 x 1.3 x 1.4 cm upper pole cyst. Left kidney measures 10.9 x 6.0 x 4.9 cm. Leon catheter in collapsed bladder. IMPRESSION: Previous hydronephrosis resolved. Small benign right renal cyst. <Electronically signed by Thom Montejo > 09/04/20 [id number]
== END ==
LOC: M WHC 06:30
PROVIDERS: ATTEND Urology
DX: N13.30 Unspecified hydronephrosis (principal); N28.1 Cyst of kidney, acquired

== ENCOUNTER 2020-09-08 06:57 | Emergency (ER) | payer MEDICARE ==
[~2020-09-08] VITALS: Ht 188 cm; Wt 42.8 kg
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
--- OUTSIDE RECORDS SUMMARY | 2020-09-08 07:12 | CCD ---
Author Author [facility] Organization [facility] Address Unknown Phone Unavailable Care Team Providers Care Host Coordinator Name Role Phone Yesy, V SHAWNA PA-C Unavailable Unavailable Yesy, V SHAWNA PA-C Unavailable Unavailable Quay, V SHAWNA PA-C Unavailable Unavailable Quay, V SHAWNA PA-C Unavailable Unavailable Quay, V SHAWNA PA-C Unavailable Unavailable Quay, V SHAWNA PA-C Unavailable Unavailable Quay, V SHAWNA PA-C Unavailable Unavailable Re-disclosure Warning The records that you are about to access may contain information from federally-assisted alcohol or drug abuse programs. If such information is present, then the following federally mandated warning applies: This information has been disclosed to you from records protected by federal confidentiality rules (42 CFR part 2). The federal rules prohibit you from making any further disclosure of this information unless further disclosure is expressly permitted by the written consent of the person to whom it pertains or as otherwise permitted by 42 CFR part 2. A general authorization for the release of medical or other information is NOT sufficient for this purpose. The Federal rules restrict any use of the information to criminally investigate or prosecute any alcohol or drug abuse patient.The records that you are about to access may contain highly sensitive health information, the redisclosure of which is protected by Article 27-F of the [facility] Public Health law. If you continue you may have access to information: Regarding HIV / AIDS; Provided by facilities licensed or operated by the [facility] Office of Mental Health; or Provided by the [facility] Office for People With Developmental Disabilities. If such information is present, then the following [facility] mandated warning applies: This information has been disclosed to you from confidential records which are protected by state law. State law prohibits you from making any further disclosure of this information without the specific written consent of the person to whom it pertains, or as otherwise permitted by law. Any unauthorized further disclosure in violation of state law may result in a fine or nursing home sentence or both. A general authorization for the release of medical or other information is NOT sufficient authorization for further disc losure. Family History Family Member Name Family Member Gender Family Member Status Date o f Status Description Data Source(s) Unknown Unknown Problem [facility] ([facility]) uncle Encounters Encounter Providers Location Date Indications Data Source(s ) Outpatient Attender: SHAWNA [email or web address] 12:00:00 AM EST - 08/31/2020 03:41:[address] [facility] [place] [address] [address] 08/26/2020 12:00:00 AM EST eCW1 (Formerly [facility]) [place] [address] [address] 08/18/2020 12:00:00 AM EST eCW1 (Formerly [facility]) Medications Medication Brand Name Start Date Product Form Dose Route Admi nistrative Instructions Pharmacy Instructions Status Indications Reaction Description Data Source(s) Tamsulosin hydrochloride 0.4 MG Oral Capsule Tamsulosi n HCl 0.4 MG Tamsulosin HCl 0.4 MG 08/26/2020 12:00:00 AM EST 1.0 {capsule} active Tamsulosin HCl 0.4 MG eCW1 (Formerly [facility]) Digoxin 0.125 MG Oral Tablet Digoxin 125 MCG Digoxin 125 MCG 08/15/2020 12:00:00 AM EST 1.0 {tablet} active Digoxin 125 MCG eCW1 ([facility]) Tamsulosin HCl 0.4 MG UNK 08/15/2020 12:00:00 AM EST 1.0 {ca psule} active Tamsulosin HCl 0.4 MG eCW1 ([facility]) Bisoprolol Fumarate 5 MG Oral Tablet Bisoprolol Fumarate 5 M G 08/15/2020 12:00:00 AM EST 1.0 {tablet} suspended Bisoprolol Fumarate 5 MG eCW1 ([facility]) Finasteride 5 MG Oral Tablet Finasteride 5 MG 08/15/2020 12:00:00 A M EST 1.0 {tablet} active Finasteride 5 MG eCW1 ( [facility]) Potassium Chloride 10 MEQ Extended Release Oral Capsul e Potassium Chloride 10 MEQ 08/15/2020 12:00:00 AM EST suspended Potassium Chloride 10 MEQ eCW1 ([facility]) Furosemide 20 MG Oral Tablet Furosemide 20 MG 08/15/2020 12:00:00 A M EST 1.0 {tablet} active Furosemide 20 MG eCW1 ( [facility]) Apixaban 5 MG UNK 08/15/2020 12:00:00 AM EST acti ve Apixaban 5 MG eCW1 ([facility]) Bisoprolol Fumarate 5 MG Oral Tablet Bisoprolol Fumarate 5 M G 08/15/2020 12:00:00 AM EST 1.0 {tablet} active Bi soprolol Fumarate 5 MG eCW1 ([facility]) Furosemide 20 MG Oral Tablet Furosemide 20 MG 08/15/2020 12:00:00 A M EST 1.0 {tablet} suspended Furosemide 20 MG eCW1 ([facility]) Potassium Chloride 10 MEQ Extended Release Oral Capsul e Potassium Chloride 10 MEQ 08/15/2020 12:00:00 AM EST active Potassium Chloride 10 MEQ eCW1 ([facility]) Finasteride 5 MG Oral Tablet Finasteride 5 MG 08/15/2020 12:00:00 A M EST 1.0 {tablet} active Finasteride 5 MG eCW1 ( [facility]) Digoxin 0.125 MG Oral Tablet Digoxin 125 MCG Digoxin 125 MCG 08/15/2020 12:00:00 AM EST 1.0 {tablet} suspended Digoxin 125 MCG eCW1 ([facility]) Amiodarone hydrochloride 200 MG Oral Tablet Amiodarone HCl 200 MG Amiodarone HCl 200 MG 08/15/2020 12:00:00 AM EST 1.0 {tablet} suspe nded Amiodarone HCl 200 MG eCW1 ([facility]) Amiodarone hydrochloride 200 MG Oral Tablet Amiodarone HCl 200 MG Amiodarone HCl 200 MG 08/15/2020 12:00:00 AM EST 1.0 {tablet} activ e Amiodarone HCl 200 MG eCW1 ([facility]) Tamsulosin HCl 0.4 MG UNK 08/15/2020 12:00:00 AM EST 1.0 {ca psule} suspended Tamsulosin HCl 0.4 MG eCW1 ([facility]) Apixaban 5 MG UNK 08/15/2020 12:00:00 AM EST suspended Apixaban 5 MG eCW1 ([facility]) Digoxin 0.125 MG Oral Tablet digoxin (LANOXIN) 125 MCG tablet digoxin (LANOXIN) 125 MCG tablet 0.125 ug Oral aborted Take 0 .125 mcg by mouth daily [facility] [place] Insurance Providers Payer name Policy type / Coverage type Policy ID Covered libertarian ID Covered libertarian's relationship to magaña Policy [place] Plan Information MEDICARE [id number] SP [id number] MEDICARE [id number] MEDICARE [id number] Nesha [id number] [id number] MEDICARE [id number] SP [id number] MEDICARE C [id number] S [id number] ANSI-Medicare Part B [id number] ANSI-Medicare Part B [id number] MEDICARE [id number] SP [id number] A [place] MEDICARE PART B C [id number] S [id number] [facility], [facility] C [id number] S [id number] MEDICARE [id number] SP [id number] A MEDICARE [id number] SP [id number] A Medicare [facility] Medicare Primary [id number] Self [id number] MEDICARE [id number] SP [id number] A Medicare [facility] Medicare Primary [id number] Self [id number] MEDICARE C [id number] S [id number] A Medicare [facility] Medicare Primary [id number] Self [id number] MEDICARE [id number] SP [id number] A MEDICAID UNAVAILABLE [place] BLE MEDICARE C [id number] S [id number] A MEDICAID M [id number] S [id number] MEDICARE [id number] SP [id number] A MEDICAID [id number] SP [id number] MEDICARE -O/P [id number] 18 [id number] MEDICARE -RECURRING [id number] 18 [id number] Problems, Conditions, and Diagnoses Code Display Name Description Problem Type Effective Dates Data Source(s) I48.91 Atrial fibrillation Atrial fibrillation [id number] 08/31/2020 12:00:[address] [facility] I50.22 Chronic systolic CHF (congestive heart f ailure) Chronic systolic CHF (congestive heart failure) [id number] 08/31/2020 12:00:00 AM EST [facility] N40.1 [id number] Benign prostatic hyp erplasia with lower urinary tract symptoms Problem 08/26/2020 12:00:00 AM EST eCW1 ([facility]) I48.91 Unspecified atrial fibrillation Unspecified atri al fibrillation Diagnosis 08/31/2020 02:03:02 PM EST [facility] Surgeries/Procedures Procedure Description Date Indications Data Source(s) ECG ROUTINE ECG W/LEAST 12 LDS W/I&R POCT AMB EKG Routine 08/31/2020 3:52 PM EST Atrial fibrillation, unspecified type 08/31/2020 08:52:00 PM EST Atrial fibrillation, unspecified type [facility] Atrial fibrillation, unspecified type Results ID Date Data Source [id number] 07/28/2020 06:12:00 PM EST [facility] Name Value Range Interpretation Code Description Data Caitlin rce(s) Supporting Document(s) SARS coronavirus 2 RNA [Presence] in Res piratory specimen by MIKE with probe detection [facility] This lab was ordered by [facility] a nd reported by [facility]. Procedure Social History Code Duration Value Status Description Data Source(s ) Alcohol intake 08/31/2020 12:00:00 AM EST Not Currently completed [facility] Cigarette pack-years 08/31/2020 12:00:00 AM EST UNK completed [facility] Cigarettes smoked current (pack per day) - Reported 08/31/19 12:00:00 AM EST UNK completed [facility] Smoking 08/31/2020 12:00:00 AM EST Former smoker completed Former smoker [facility] Smoking 08/26/2020 12:00:00 AM EST Former Smoker completed Former Smoker eCW1 (Formerly [facility]) Smoking 08/18/2020 12:00:00 AM EST Current Smoker completed Curre nt Smoker eCW1 (Formerly [facility]) 07/01/2020 12:00:00 AM EST Current smoker completed Curre nt smoker [facility] Vital Signs ID Date Data Source UNK Name Value Range Interpretation Code Description Data Source(s) Oxygen saturation in Arterial blood by Pulse oximetry 96 % 96 % [facility] Body weight 90.[address] [facility] Heart rate 66 /min 66 /min [facility] Diastolic blood pressure 66 mm[Hg] 66 mm[Hg] [facility] Systolic blood pressure 86 mm[Hg] 86 mm[Hg] S [facility] Diastolic blood pressure 62 mm[Hg] 62 mm[Hg] eCW1 ([facility]) Systolic blood pressure 124 mm[Hg] 124 mm[Hg] e CW1 ([facility]) Body temperature 96.8 [degF] 96.8 [degF] eCW1 ( [facility]) Respiratory rate 20 /min 20 /min eCW1 ([facility]) Heart rate 86 /min 86 /min eCW1 ([facility]) Body mass index (BMI) [Ratio] 26.99 kg/m2 26.99 kg/m2 eCW1 ([facility]) Body height 72 [in_i] 72 [in_i] eCW1 ([facility]) Body weight 199 [lb_av] 199 [lb_av] eCW1 ([facility]) Patient Treatment Plan of Care Planned Activity Planned Date Details Description Data Source (s) Tamsulosin hydrochloride 0.4 MG Oral Capsule 08/26/2020 12:00:00 AM EST eCW1 ([facility]) Digoxin 0.[address] [facility]
--- OUTSIDE RECORDS SUMMARY | 2020-09-08 07:12 | CCD ---
Author Author [facility] Organization [facility] Address Unknown Phone Unavailable Care Team Providers Care Store Group Manager Name Role Phone Ata Wood Unavailable PROBLEMS Type Condition ICD9-CM Code EHP34-TZ Code Onset Dates Condition S tatus SNOMED Code Notes Problem Hyperlipidemia E78.5 Active 34085570 Problem Tinnitus, left H93.12 Active 95129913 Problem History of malignant neoplasm of esophagus Z85.01 Active 018450716 Problem Dry eye syndrome of right lacrimal gland H04.121 Active 12549761 Problem Alcohol abuse, in remission F10.10 Active 1918 56207 Problem Benign prostatic hyperplasia with lower urinary tract symptoms N40.1 Active 6991514430208 Problem History of tobacco use Z87.891 Active 594117742 9103 Problem Vocal cord paralysis J38.00 Active 438711505 Problem Cigarette nicotine dependence with nicotine-induced di sorder F17.219 Active 93994188 Problem Smoking F17.200 Active 58354330 Problem 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 Activ e 75145181 ALLERGIES No Known Allergies ENCOUNTERS from 1955 to 2020-09-03 Encounter Location Date Provider Diagnosis [facility] [address] [place] [address] Aug Ata Wood Hydronephrosis, unspecified hydronephros is type N13.30 ; Nocturia R35.1 ; Benign prostatic hyperplasia with lower urinary tract symptoms N40.1 ; Urinary retention R33.9 and Prostate induration N42.89 IMMUNIZATIONS No Information SOCIAL HISTORY Tobacco Use: Social History Observation Description Date Details (start date - stop date) Former Smoker Sex Assigned At : Social History Observation Description Sex Assigned At Unknown Education: Question Answer Notes Level of Education: Finished High School Language: Question Answer Notes Languages spoken: Thai Confucianist: Question Answer Notes Confucianist 33 None Sexual Hx: Question Answer Notes Had sex in the last 12 months (vaginal, oral, or anal)? Yes with Women only BMI Care Goal Follow-Up Question Answer Notes Above Normal BMI Follow-Up Giving encouragement to exercise Tobacco Use: Question Answer Notes Are you a: former smoker quit 07/2020 REASON FOR REFERRAL No Information VITAL SIGNS Weight 199 lbs Aug, Height 72 in Aug, BMI 26.99 kg/m2 Aug, Heart Rate 86 /min Aug, Respiratory Rate 20 /min Aug, Temperature 96.8 degrees Fahrenheit Aug, Oximetry 89 Aug, Blood pressure systolic 124 mm Hg Aug, Blood pressure diastolic 62 mm Hg Aug, MEDICATIONS Medication SIG (Take, Route, Frequency, Duration) Notes Start Da te End Date Status Tylenol Extra Strength 500 mg 2 tablets Orally every 6 hrs as needed Unknown Digoxin 125 MCG 1 tablet Orally Daily Aug, Not-Taking Potassium Chloride 10 MEQ 1 cap Orally Daily Aug, Not-Taking Tamsulosin HCl 0.4 MG 1 capsule Orally Once a day for 30 day(s) Aug, Active Prevacid 30 MG 1 capsule Orally twice a day Unknown Finasteride 5 MG 1 tablet Orally Once a day for 30 day(s) Aug, Active Furosemide 20 MG 1 tablet Orally Once a day for 30 day(s) Aug, Not-Taking Tamsulosin HCl 0.4 MG 1 capsule Orally Daily Aug, Not-Taking Apixaban 5 MG 1 tab Orally twice daily Aug, Not-Taking Bisoprolol Fumarate 5 MG 1 tablet Orally twice daily 2020 Not-Taking Pacerone 200 MG 1 tablet Orally Once a day for 30 day(s) Active Amiodarone HCl 200 MG 1 tablet Orally every 6 hours for 120 days Aug, Not-Taking Digoxin 125 MCG 1 tab Orally Daily A ctive PROCEDURES No Information RESULTS No Results REASON FOR VISIT ED FU MEDICAL (GENERAL) HISTORY Type Description Date Medical [...] radiation 2010 Hospitalization History [facility] angina 11/29/2014 Hospitalization History CHF, kidney failure 07/2020 Goals Section No Information Health Concerns No Information MEDICAL EQUIPMENT No Information MENTAL STATUS No Information FUNCTIONAL STATUS No Information ASSESSMENTS Encounter Date Diagnosis Assessment Notes Treatment Notes Treatm ent Clinical Notes Aug, Hydronephrosis, unspecified hydronephros is type (ICD-10 - N13.30) Patient will need a renal ultrasound with the Leon catheter indwelling to make sure the hydronephrosis is improved. Reschedule for cystoscopy at which time a trial of voiding will be obtained. In the meantime, the patient will stay on his finasteride and we will add tamsulosin. PSA will be ordered. Aug, Nocturia (ICD-10 - R35.1) Aug, Benign prostatic hyperplasia with lower urinary tract symptoms (ICD-10 - N40.1) Aug, Urinary retention (ICD-10 - R33.9) Aug, Prostate induration (ICD-10 - N42.89) PLAN OF TREATMENT Medication Medication Name Sig Start Date Stop Date Tamsulosin HCl 0.4 MG 1 capsule Orally Once a day for 30 day(s) Aug, Treatment Notes Assessment Notes Clinical Notes Hydronephrosis, unspecified hydronephrosis type Patient will need a renal ultrasound with the Leon catheter indwelling to make sure the hydronephrosis is improved. Reschedule for cystoscopy at which time a trial of voiding will be obtained.In the meantime, the patient will stay on his finasteride and we will add tamsulosin.PSA will be ordered. Treatment Notes Test Name Order Date PSA SCREENING 2020-09-03 RENAL ULTRASOUND 2020-09-03 Next Appt Details next available appointment for cystoscop y and trial of voiding Reason: Provider Name:Lukas London, 2020-09-07 0 01:00:00 PM, [address], [place], [address], Insurance Providers Payer Name Payer Address Payer Phone Insured Name Patient Relati onship to Insured Coverage Start Date Coverage End Date MEDICARE Part A and [address] [facility] [address] CROW MURRAY
--- OUTSIDE RECORDS SUMMARY | 2020-09-08 08:00 | CCD ---
Author Author [facility] Organization [facility] Address Unknown Phone Unavailable Care Team Providers Care Medical Territory Manager Name Role Phone Yesy, V SHAWNA PA-C Unavailable Unavailable Yesy, V SHAWNA PA-C Unavailable Unavailable Lamb, V SHAWNA PA-C Unavailable Unavailable Lamb, V SHAWNA PA-C Unavailable Unavailable Lamb, V SHAWNA PA-C Unavailable Unavailable Lamb, V SHAWNA PA-C Unavailable Unavailable Lamb, V SHAWNA PA-C Unavailable Unavailable Re-disclosure Warning [...] is protected by Article 27-F of the [facility] Public Health law. If you continue you may have access to information: Regarding HIV / AIDS; Provided by facilities licensed or operated by the [facility] Office of Mental Health; or Provided by the [facility] Office for People With Developmental Disabilities. If such information is present, then the following [facility] mandated warning applies: This information has [...] law may result in a fine or intermediate sentence or both. A general authorization for the release of medical or other information is NOT sufficient authorization for further disc losure. Family History Family Member Name Family Member Gender Family Member Status Date o f Status Description Data Source(s) Unknown Unknown Problem [facility]ENT ([facility]) uncle Encounters Encounter Providers Location Date Indications Data Source(s ) Outpatient Attender: SHAWNA [email or web address] 12:00:00 AM EST - 08/31/2020 03:41:51 PM EST [facility] [address] [facility] [address] 08/26/2020 12:00:00 AM EST eCW1 (Counts include 234 beds at the [facility]) Unknown [address] [address] 08/18/2020 12:00:00 AM EST eCW1 (Counts include 234 beds at the [facility]) Medications Medication Brand Name Start Date Product Form Dose Route Admi nistrative Instructions Pharmacy Instructions Status Indications Reaction Description Data Source(s) Tamsulosin hydrochloride 0.4 MG Oral Capsule Tamsulosi n HCl 0.4 MG Tamsulosin HCl 0.4 MG 08/26/2020 12:00:00 AM EST 1.0 {capsule} active Tamsulosin HCl 0.4 MG eCW1 ([facility]) Digoxin 0.125 MG Oral Tablet Digoxin 125 MCG Digoxin 125 MCG 08/15/2020 12:00:00 AM EST 1.0 {tablet} active Digoxin 125 MCG eCW1 ([facility]) Tamsulosin HCl 0.4 MG UNK 08/15/2020 12:00:00 AM EST 1.0 {ca psule} active Tamsulosin HCl 0.4 MG eCW1 ([facility]) Bisoprolol Fumarate 5 MG Oral Tablet Bisoprolol Fumarate 5 M G 08/15/2020 12:00:00 AM EST 1.0 {tablet} suspended Bisoprolol Fumarate 5 MG eCW1 ([facility]) Finasteride 5 MG Oral Tablet Finasteride 5 MG 08/15/2020 12:00:00 A M EST 1.0 {tablet} active Finasteride 5 MG eCW1 ( [facility]) Potassium Chloride 10 MEQ Extended Release Oral Capsul e Potassium Chloride 10 MEQ 08/15/2020 12:00:00 AM EST suspended Potassium Chloride 10 MEQ eCW1 ([facility]) Furosemide 20 MG Oral Tablet Furosemide 20 MG 08/15/2020 12:00:00 A M EST 1.0 {tablet} active Furosemide 20 MG eCW1 ( [facility]) Apixaban 5 MG UNK 08/15/2020 12:00:00 AM EST acti ve Apixaban 5 MG eCW1 ([facility]) Bisoprolol Fumarate 5 MG Oral Tablet Bisoprolol Fumarate 5 M G 08/15/2020 12:00:00 AM EST 1.0 {tablet} active Bi soprolol Fumarate 5 MG eCW1 ([facility]) Furosemide 20 MG Oral Tablet Furosemide 20 MG 08/15/2020 12:00:00 A M EST 1.0 {tablet} suspended Furosemide 20 MG eCW1 ([facility]) Potassium Chloride 10 MEQ Extended Release Oral Capsul e Potassium Chloride 10 MEQ 08/15/2020 12:00:00 AM EST active Potassium Chloride 10 MEQ eCW1 ([facility]) Finasteride 5 MG Oral Tablet Finasteride 5 MG 08/15/2020 12:00:00 A M EST 1.0 {tablet} active Finasteride 5 MG eCW1 ( [facility]) Digoxin 0.125 MG Oral Tablet Digoxin 125 MCG Digoxin 125 MCG 08/15/2020 12:00:00 AM EST 1.0 {tablet} suspended Digoxin 125 MCG eCW1 ([facility]) Amiodarone hydrochloride 200 MG Oral Tablet Amiodarone HCl 200 MG Amiodarone HCl 200 MG 08/15/2020 12:00:00 AM EST 1.0 {tablet} suspe nded Amiodarone HCl 200 MG eCW1 ([facility]) Amiodarone hydrochloride 200 MG Oral Tablet Amiodarone HCl 200 MG Amiodarone HCl 200 MG 08/15/2020 12:00:00 AM EST 1.0 {tablet} activ e Amiodarone HCl 200 MG eCW1 ([facility]) Tamsulosin HCl 0.4 MG UNK 08/15/2020 12:00:00 AM EST 1.0 {ca psule} suspended Tamsulosin HCl 0.4 MG eCW1 ([facility]) Apixaban 5 MG UNK 08/15/2020 12:00:00 AM EST suspended Apixaban 5 MG eCW1 ([facility]) Digoxin 0.125 MG Oral Tablet digoxin (LANOXIN) 125 MCG tablet digoxin (LANOXIN) 125 MCG tablet 0.125 ug Oral aborted Take 0 .125 mcg by mouth daily [facility] Insurance Providers Payer name Policy type / Coverage type Policy ID Covered alliance party ID Covered alliance party's relationship to mag[place] Policy [place] Plan Information MEDICARE [id number] SP [id number] MEDICARE [id number] MEDICARE [id number] Nesha [id number] [id number] MEDICARE [id number] SP [id number] MEDICARE C [id number] S [id number] ANSI-Medicare Part B [id number] ANSI-Medicare Part B [id number] MEDICARE [id number] SP [id number] A [place] MEDICARE PART B C [id number] S [id number] [facility] [place] [employer], [facility] C [id number] S [id number] MEDICARE [id number] SP [id number] A MEDICARE [id number] SP [id number] A Medicare [facility] Medicare Primary [id number] Self [id number] MEDICARE [id number] SP [id number] A Medicare [facility] Medicare Primary [id number] Self [id number] MEDICARE C [id number] S [id number] A Medicare [facility] Medicare Primary [id number] Self [id number] MEDICARE [id number] SP [id number] A MEDICAID UNAVAILABLE UNAVAILA BLE MEDICARE C [id number] S [id number] A MEDICAID M [id number] S [id number] MEDICARE [id number] SP [id number] A MEDICAID [id number] SP [id number] MEDICARE -O/P [id number] 18 [id number] MEDICARE -RECURRING [id number] 18 [id number] Problems, Conditions, and Diagnoses Code Display Name Description Problem Type Effective Dates Data Source(s) I48.91 Atrial fibrillation Atrial fibrillation [id number] 08/31/2020 12:00:00 AM EST [facility] I50.22 Chronic systolic CHF (congestive heart f ailure) Chronic systolic CHF (congestive heart failure) 24422233 08/31/2020 12:00:[address] [facility] N40.1 [id number] Benign prostatic hyp erplasia with lower urinary tract symptoms Problem 08/26/2020 12:00:00 AM EST eCW1 ([facility]) I48.91 Unspecified atrial fibrillation Unspecified atri al fibrillation Diagnosis 08/31/2020 02:03:02 PM EST [facility] Surgeries/Procedures Procedure Description Date Indications Data Source(s) ECG ROUTINE ECG W/LEAST 12 LDS W/I&R POCT AMB EKG Routine 08/31/2020 3:52 PM EST Atrial fibrillation, unspecified type 08/31/2020 08:52:00 PM EST Atrial fibrillation, unspecified type [facility] Atrial fibrillation, unspecified type Results ID Date Data Source [id number] 07/28/2020 06:12:00 PM EST [facility] Name Value Range Interpretation Code Description Data Caitlin rce(s) Supporting Document(s) SARS coronavirus 2 RNA [Presence] in Res piratory specimen by MIKE with probe detection [facility] This lab was ordered by [facility] a nd reported by [facility]. Procedure Social History Code Duration Value Status Description Data Source(s ) Alcohol intake 08/31/2020 12:00:00 AM EST Not Currently completed [facility] Cigarette pack-years 08/31/2020 12:00:00 AM EST UNK completed [facility] Cigarettes smoked current (pack per day) - Reported 08/31/19 12:00:00 AM EST UNK completed [facility] Smoking 08/31/2020 12:00:00 AM EST Former smoker completed Former smoker [facility] Smoking 08/26/2020 12:00:00 AM EST Former Smoker completed Former Smoker eCW1 ([facility]) Smoking 08/18/2020 12:00:00 AM EST Current Smoker completed Curre nt Smoker eCW1 ([facility]) 07/01/2020 12:00:00 AM EST Current smoker completed Curre nt smoker [facility] Vital Signs ID Date Data Source UNK Name Value Range Interpretation Code Description Data Source(s) Oxygen saturation in Arterial blood by Pulse oximetry 96 % 96 % [facility] Body weight 90.266 kg 90.266 kg [facility] Heart rate 66 /min 66 /min [facility] Diastolic blood pressure 66 mm[Hg] 66 mm[Hg] [facility] Systolic blood pressure 86 mm[Hg] 86 mm[Hg] [facility] Diastolic blood pressure 62 mm[Hg] 62 mm[Hg] eCW1 ([facility]) Systolic blood pressure 124 mm[Hg] 124 mm[Hg] e CW1 ([facility]) Body temperature 96.8 [degF] 96.8 [degF] eCW1 ( [facility]) Respiratory rate 20 /min 20 /min eCW1 ([facility]) Heart rate 86 /min 86 /min eCW1 ([facility]) Body mass index (BMI) [Ratio] 26.99 kg/m2 26.99 kg/m2 eCW1 ([facility]) Body height 72 [in_i] 72 [in_i] eCW1 ([facility]) Body weight 199 [lb_av] 199 [lb_av] eCW1 ([facility]) Patient Treatment Plan of Care Planned Activity Planned Date Details Description Data Source (s) Tamsulosin hydrochloride 0.4 MG Oral Capsule 08/26/2020 12:00:00 AM EST eCW1 ([facility]) Digoxin 0.125 MG Oral Tablet [facility]
[2020-09-08 08:03] VITALS: BP 118/67
== END 2020-09-08 08:04 | disposition home or self-care (01) ==
LOC: M ED 06:57
DX: T83.028A Displacement of other urinary catheter, initial encounter (principal); X58.XXXA Exposure to other specified factors, initial encounter; Y92.89 Other specified places as the place of occurrence of the external cause; I48.91 Unspecified atrial fibrillation; R51.9 Headache, unspecified; E78.00 Pure hypercholesterolemia, unspecified; F33.9 Major depressive disorder, recurrent, unspecified; F41.9 Anxiety disorder, unspecified; K76.89 Other specified diseases of liver; Z79.899 Other long term (current) drug therapy; Z79.01 Long term (current) use of anticoagulants

== ENCOUNTER 2020-12-27 02:59 | Emergency (ER) | payer MEDICARE ==
[~2020-12-27] VITALS: Ht 188 cm; Wt 110.8 kg
[2020-12-27] MEDS ORDERED: CEPH500C PO (03:59)
[2020-12-27] MEDS ORDERED: CEPHALEXIN 500 MG CAP PO ONE (04:00)
[2020-12-27 04:55] VITALS: BP 138/77
== END 2020-12-27 04:57 | disposition home or self-care (01) ==
LOC: M ED 02:59
DX: T83.091A Other mechanical complication of indwelling urethral catheter, initial encounter (principal); N39.0 Urinary tract infection, site not specified; I48.91 Unspecified atrial fibrillation; N40.1 Benign prostatic hyperplasia with lower urinary tract symptoms; Z85.01 Personal history of malignant neoplasm of esophagus

== ENCOUNTER 2021-03-31 21:25 | Emergency (ER) | payer MEDICARE ==
[~2021-03-31] VITALS: Ht 188 cm; Wt 114.1 kg
[~2021-03-31 21:25] MED LIST changes: +CEPH500C PO
[2021-04-01 01:43] LABS: APPEARANCE, URINE HAZY (CLEAR); BACTERIA, URINE AUTO 1+ (NEGATIVE); BILIRUBIN, URINE AUTO NEGATIVE (NEGATIVE); BLOOD, URINE BLOOD 2+ (NEGATIVE); COLOR, URINE YELLOW (YELLOW); GLUCOSE, URINE (UA) AUTO NEGATIVE (NEGATIVE); KETONE, URINE AUTO NEGATIVE (NEGATIVE); LEUKOCYTE ESTERASE, URINE AUTO 3+ (NEGATIVE); NITRITE, URINE AUTO NEGATIVE (NEGATIVE); PROTEIN, URINE AUTO NEGATIVE (NEGATIVE); RBC, URINE AUTO 3 /HPF (0-3); SPECIFIC GRAVITY URINE AUTO 1.006 (1.002-1.035); SQUAMOUS EPITHELIAL CELL UR AU 0 /HPF (0-6); UROBILINOGEN, URINE AUTO 0.2 mg/dL (0.0-2.0); WBC, URINE AUTO 131 /HPF (0-3)
[2021-04-01] MEDS ORDERED: NITROFURANTOIN (MACROBID) 100 MG CAP PO ONE (01:45)
[2021-04-01 02:00] VITALS: BP 149/83
== END 2021-04-01 02:13 | disposition home or self-care (01) ==
LOC: M ED 21:25
DX: R33.9 Retention of urine, unspecified (principal); T83.098A Other mechanical complication of other urinary catheter, initial encounter; Y92.89 Other specified places as the place of occurrence of the external cause; N40.1 Benign prostatic hyperplasia with lower urinary tract symptoms; E78.5 Hyperlipidemia, unspecified; I48.91 Unspecified atrial fibrillation

== ENCOUNTER 2021-04-16 22:53 | Emergency (ER) | payer MEDICARE ==
[~2021-04-16] VITALS: Ht 188 cm; Wt 114.3 kg
[~2021-04-16 22:53] MED LIST changes: -KLOR10TA76 PO; +POTA-136 PO
[2021-04-17] MEDS ORDERED: LIDOCAINE 2% 5ML JELLY UROJET TOP ONE (00:15)
[2021-04-17 01:22] LABS: APPEARANCE, URINE CLOUDY (CLEAR); BACTERIA, URINE AUTO NEGATIVE (NEGATIVE); BILIRUBIN, URINE AUTO NEGATIVE (NEGATIVE); BLOOD, URINE BLOOD 3+ (NEGATIVE); COLOR, URINE YELLOW (YELLOW); GLUCOSE, URINE (UA) AUTO NEGATIVE (NEGATIVE); KETONE, URINE AUTO NEGATIVE (NEGATIVE); LEUKOCYTE ESTERASE, URINE AUTO 3+ (NEGATIVE); NITRITE, URINE AUTO POSITIVE (NEGATIVE); PROTEIN, URINE AUTO 1+ mg/dL (NEGATIVE); RBC, URINE AUTO 68 /HPF (0-3); SPECIFIC GRAVITY URINE AUTO 1.006 (1.002-1.035); SQUAMOUS EPITHELIAL CELL UR AU 0 /HPF (0-6); UROBILINOGEN, URINE AUTO 0.2 mg/dL (0.0-2.0); WBC, URINE AUTO TNTC /HPF (0-3)
--- NOTE | 2021-04-17 02:08 | REPVR ---
PROCEDURE INFORMATION: Exam: US Scrotum Exam date and time: 04/17/2021 1:52 AM Age: 66 years old Clinical indication: Groin pain; Additional info: Swelling, enlarged TECHNIQUE: Imaging protocol: Real-time ultrasound of the scrotum and contents with color Doppler and image documentation. COMPARISON: RENAL US 09/04/2020 7:05 AM FINDINGS: Right testicle: Right testicle measures 3.7 x 2.1 x 2.4 cm. No masses. Normal vascular flow on Doppler. Left testicle: Left testicle measures 3.5 x 2.2 x 2.8 cm. No masses. Normal vascular flow on Doppler. Epididymides: Normal. Epididymides are unremarkable. Scrotum: Two scrotal pearls on the right measuring 2.4 x 2 x 3 mm and 5 x 3 x 5 mm. Moderate bilateral hydroceles. Other findings: Moderate right inguinal hernia with peristalsing bowel. Inguinal hernia is not reducible on ultrasound. IMPRESSION: 1. No evidence testicular torsion or orchitis. 2. Moderate bilateral hydroceles. 3. Incidental right scrotal pearls. 4. Moderate right inguinal hernia with peristalsing bowel. Electronically signed by: Pete Rodriguez On 04/17/2021 02:08:16 AM
[2021-04-17] MEDS ORDERED: LEVO750T14 PO (02:33)
[2021-04-17] MEDS ORDERED: LevoFLOXacin 750 MG TABLET PO ONE (02:55)
[2021-04-17 03:19] VITALS: BP 117/58
--- NOTE | 2021-04-19 13:33 | ED PDOC ---
Post-Departure Follow-Up radiology rpeort faxed to Lety Tyler MD Apr 19, 2021 13:33
== END 2021-04-17 03:21 | disposition home or self-care (01) ==
LOC: M ED 22:53
DX: T83.098A Other mechanical complication of other urinary catheter, initial encounter (principal); N39.0 Urinary tract infection, site not specified; K40.90 Unilateral inguinal hernia, without obstruction or gangrene, not specified as recurrent; I48.91 Unspecified atrial fibrillation; F33.9 Major depressive disorder, recurrent, unspecified; F41.9 Anxiety disorder, unspecified; F10.10 Alcohol abuse, uncomplicated; E78.5 Hyperlipidemia, unspecified; N40.0 Benign prostatic hyperplasia without lower urinary tract symptoms; Z85.01 Personal history of malignant neoplasm of esophagus

== ENCOUNTER 2021-11-15 17:32 | Emergency (ER) | payer MEDICARE ==
[~2021-11-15] VITALS: Ht 188 cm; Wt 112.0 kg
[~2021-11-15 17:32] MED LIST changes: -AMIO200T3 PO; +AMIO200T49 PO; +LEVO750T14 PO
[2021-11-15] MEDS ORDERED: METOPROLOL 5 MG/5 ML VIAL IV SCH (18:10)
[2021-11-15] MEDS ORDERED: LIDOCAINE 2% 5ML JELLY UROJET TOP ONE (18:15)
[2021-11-15 18:36] LABS: BASO # 0.1 10^3/uL (0.0-0.2); BASO % 0.4 % (0.0-1.0); EOS # 0.2 10^3/uL (0.0-0.5); EOS % 1.6 % (0.0-3.0); HEMOGLOBIN 16.3 g/dl (13.5-17.5); LYMPH # 2.1 10^3/uL (1.5-5.0); LYMPH % 17.2 % (24.0-44.0); MEAN CORPUSCULAR HEMOGLOBIN 31.7 pg (27.0-33.0); MEAN CORPUSCULAR HGB CONC 34.7 g/dl (32.0-36.5); MEAN CORPUSCULAR VOLUME 91.3 fl (80.0-96.0); MONO # 0.6 10^3/uL (0.0-0.8); MONO % 5.2 % (2.0-8.0); NEUTROPHILS % 75.2 % (36.0-66.0); PLATELET COUNT, AUTOMATED 224 10^3/uL (150-450); RED BLOOD COUNT 5.15 10^6/uL (4.30-6.10); WHITE BLOOD COUNT 11.9 10^3/uL (4.0-10.0)
[2021-11-15 19:03] LABS: CK-MB VALUE MASS 1.3 NG/ML (<3.6); MB/CK RELATIVE INDEX 2.17 (< OR =4)
[2021-11-15 19:10] LABS: ALBUMIN 4.2 GM/DL (3.2-5.2); ALT/SGPT 25 U/L (12-78); BILIRUBIN,DIRECT 0.2 MG/DL (0.0-0.2); BILIRUBIN,TOTAL 0.9 MG/DL (0.2-1.0); BLOOD UREA NITROGEN 19 MG/DL (7-18); CALCIUM LEVEL 9.4 MG/DL (8.8-10.2); CARBON DIOXIDE LEVEL 19 MEQ/L (21-32); CHLORIDE LEVEL 113 MEQ/L (98-107); CREATININE FOR GFR 1.11 MG/DL (0.70-1.30); FREE T4 1.26 NG/DL (0.76-1.46); GLOMERULAR FILTRATION RATE > 60.0 (>49); GLUCOSE, FASTING 125 MG/DL (70-100); LIPASE 63 U/L (73-393); POTASSIUM SERUM 3.9 MEQ/L (3.5-5.1); SODIUM LEVEL 142 MEQ/L (136-145); TOTAL PROTEIN 7.2 GM/DL (6.4-8.2)
[2021-11-15] MEDS ORDERED: cefTRIAXone SOD 1 GM in D5W MINI-BAG PLUS 50 ML IV ONE (19:30)
[2021-11-15 20:14] LABS: CK-MB VALUE MASS 1.2 NG/ML (<3.6); MB/CK RELATIVE INDEX 2.45 (< OR =4)
[2021-11-15 21:23] LABS: MB/CK RELATIVE INDEX 2.08 (< OR =4)
[2021-11-15] MEDS ORDERED: CEFD300C PO (21:51)
[2021-11-15 22:30] VITALS: BP 127/73
[2021-11-15] MEDS ORDERED: LISI10TA22 PO (22:35)
[2021-11-15] MEDS ORDERED: AMIO200T49 PO (22:36)
[2021-11-15] MEDS ORDERED: ELIQ5TAB PO (22:37)
== END 2021-11-16 03:39 | disposition home or self-care (01) ==
LOC: M ED 17:32
DX: N39.0 Urinary tract infection, site not specified (principal); R33.9 Retention of urine, unspecified; T83.098A Other mechanical complication of other urinary catheter, initial encounter; I48.91 Unspecified atrial fibrillation; I50.9 Heart failure, unspecified; N18.30 Chronic kidney disease, stage 3 unspecified; E78.9 Disorder of lipoprotein metabolism, unspecified; F33.9 Major depressive disorder, recurrent, unspecified; F41.9 Anxiety disorder, unspecified; K12.2 Cellulitis and abscess of mouth; F10.10 Alcohol abuse, uncomplicated; Z93.0 Tracheostomy status; Z85.01 Personal history of malignant neoplasm of esophagus; Z79.899 Other long term (current) drug therapy; Z79.01 Long term (current) use of anticoagulants
CPT/HCPCS: 71045; 80048; 80076; 81001; 82550; 82553; 83690; 84439; 84443; 84484; 85025; 87088; 87186; 93005; 93041; 94760; 96365; 96375; 99285; J0696